=== PATIENT | female | born 1955 | race Two or more races ===

== ENCOUNTER 2016-07-10 19:33 | Inpatient (IN) | payer MEDICAID ==
--- NOTE | 2016-07-10 19:56 | EDPHY ---
H & P Time Seen by Provider: 07/10/16 19:51 HPI/ROS: Chief complaint. Cough, back ache, shortness of breath HPI. 61-year-old female presents with shortness of breath, cough productive green sputum and fever. She has had the symptoms for about 1 week. She is on chronic home O2 and several months ago she went from her usual 3 L to 5 L per minute by nasal cannula. She has back pain and rib pain especially with coughing. Exertional shortness of breath. Her blood sugar was elevated today. No unusual leg pain or swelling. No anterior chest discomfort. No abdominal pain ROS Constitutional. Subjective fever Eyes. no problems with vision ENT. no sore throat, no nasal drainage Cardiovascular. no chest pain Respiratory. Shortness of breath and cough Abdominal. no abdominal pain, no nausea/vomiting, no diarrhea . no problems urinating MS. Back pain with coughing Skin. no rash Lymph. no swollen glands Neuro. no headache, no dizziness, no difficulty walking or with speech Past Medical/Surgical History: Past medical history is significant for chronic fatigue, arthritis, TB as a child, diabetes, hypertension, COPD, sleep apnea, appendectomy, kidney stones, gallstones, chronic home O2 at 3 liters/minute Social History: Single, nonsmoker, no alcohol Smoking Status: Never smoked Physical Exam: General Appearance: Alert well-developed female moderate distress vital signs are stable Eyes: Pupils equal and round no pallor or injection. ENT, Mouth: Mucous membranes are moist. Respiratory: There are no retractions, lungs are clear to auscultation. No audible rales, rhonchi Cardiovascular: Regular rate and rhythm. Gastrointestinal: Abdomen is soft and nontender, no masses, bowel sounds normal. Neurological: Awake and alert, sensory and motor exams grossly normal. Skin: Warm and dry, no rashes. Musculoskeletal: Neck is supple nontender. Extremities symmetrical, full range of motion. Psychiatric: Patient is oriented X 3, there is no agitation. Constitutional: Initial Vital Signs Temperature (C) 36.9 C 07/10/16 19:35 Heart Rate 77 07/10/16 19:35 Respiratory Rate 18 07/10/16 19:35 Blood Pressure 168/69 H 07/10/16 19:35 O2 Sat (%) 98 07/10/16 19:35 O2 Delivery Mode Nasal Cannula O2 (L/minute) 5 Allergies/Adverse Reactions: No Known Allergies Allergy (Verified 07/10/16 19:42) Home Medications: Medication Instructions Recorded Hydrochlorothiazide [HCTZ (*)] 25 mg PO DAILY 08/09/13 Montelukast Sodium [Singulair 10 10 mg PO DAILY 08/09/13 mg (*)] Sertraline HCl [Zoloft 100mg (*)] 200 mg PO DAILY 08/09/13 Fluticasone/Salmeter 250/50Mcg 1 puffs IH BID 03/31/15 [Advair 250/50 (*)] Aspirin [Aspirin 81mg (*)] 81 mg PO DAILY 08/22/15 Lisinopril [Zestril 20 mg (*)] 20 mg PO DAILY 08/22/15 Albuterol [Proventil Inhaler HFA 2 puffs IH Q4HRS PRN #1 mdi 01/20/16 (*)] Cholecalciferol Vit D3 [Vitamin D3 1,000 units PO DAILY 01/25/16 (*)] Linagliptin [Tradjenta] 5 mg PO DAILY 01/25/16 Zolpidem Tartrate [Ambien 5MG (*)] 5 mg PO HS PRN 01/25/16 Acetaminophen [Tylenol 325mg (*)] 650 mg PO Q4HRS PRN #0 tab 01/27/16 Atenolol [Tenormin 25 mg (*)] 25 mg PO DAILY #30 tab 01/27/16 Pantoprazole Sodium [Protonix 40mg 40 mg PO DAILY #30 tab 01/27/16 (*)] guaiFENesin [Mucinex 600 MG (*)] 1,200 mg PO BID #0 tab.er 01/27/16 predniSONE 20 mg PO DAILY #6 tablet 01/27/16 Insulin Aspart [novoLOG] unit SC AC 07/10/16 Insulin Detemir [Levemir] 100 unit SQ 07/10/16 Medical Decision Making - Diagnostics EKG Interpretation: EKG INTERPRETED BY ME SHOWS NORMAL SINUS RHYTHM WITH NORMAL INTERVAL AND AXIS. QRS IS NORMAL NO SIGNIFICANT ST ELEVATION OR DEPRESSION. NO ARRHYTHMIA. THE RATE IS 66 Imaging Results: Chest x-ray reviewed by me and discussed with Dr. Menchaca shows a left lingular pneumonia Procedures: IV normal saline, DuoNeb updraft Lactate and blood cultures IV Rocephin following blood cultures ED Course/Re-evaluation: Re-evaluation 920 p.m. patient and I discussed imaging lab results including pneumonia and elevated blood sugar. We discussed treatment plan and recommendation for admission. Patient expresses understanding and agreement I consulted and discussed case with hospitalist, who agrees to the admission Differential Diagnosis: I considered COPD exacerbation, pneumonia, congestive heart failure, acute coronary syndrome - Data Points Laboratory Results: Laboratory Results 07/10/16 20:14 07/10/16 20:14 07/10/16 07/10/16 07/10/16 20:14 20:14 20:14 WBC RBC Hgb Hct MCV MCH MCHC RDW Plt Count MPV Neut % (Auto) Lymph % (Auto) [place] % (Auto) Eos % (Auto) Baso % (Auto) Nucleat RBC Rel Count Absolute Neuts (auto) Absolute Lymphs (auto) Absolute Monos (auto) Absolute Eos (auto) Absolute Basos (auto) Absolute Nucleated RBC Immature Gran % Immature Gran # PT Pending INR Pending APTT Pending D-Dimer Pending VBG Lactic Acid 1.6 mmol/L mmol/L (0.7-2.1) Sodium 137 mEq/L mEq/L (134-144) Potassium 4.0 mEq/L mEq/L (3.5-5.2) Chloride 95 mEq/L L mEq/L (97-110) Carbon Dioxide 30 mEq/l mEq/l (22-31) Anion Gap 12 mEq/L mEq/L (8-16) BUN 12 mg/dL mg/dL (7-23) Creatinine 0.6 mg/dL mg/dL (0.6-1.0) Estimated GFR > 60 Glucose 438 mg/dL H mg/dL (70-100) Calcium 8.4 mg/dL L mg/dL (8.5-10.4) Total Bilirubin 0.7 mg/dL mg/dL (0.1-1.4) Troponin I < 0.012 ng/mL ng/mL (0-0.034) NT-Pro-B Natriuret Pep 206 pg/mL H pg/mL (0-125) 07/10/16 20:14 WBC 7.35 10^3/uL 10^3/uL (3.80-9.50) RBC 4.62 10^6/uL 10^6/uL (4.18-5.33) Hgb 13.5 g/dL g/dL (12.6-16.3) Hct 41.6 % % (38.0-47.0) MCV 90.0 fL fL (81.5-99.8) MCH 29.2 pg pg (27.9-34.1) MCHC 32.5 g/dL g/dL (32.4-36.7) RDW 12.6 % % (11.5-15.2) Plt Count 200 10^3/uL 10^3/uL (150-400) MPV 10.1 fL fL (8.7-11.7) Neut % (Auto) 65.9 % % (39.3-74.2) Lymph % (Auto) 25.9 % % (15.0-45.0) [place] % (Auto) 7.3 % % (4.5-13.0) Eos % (Auto) 0.0 % L % (0.6-7.6) Baso % (Auto) 0.4 % % (0.3-1.7) Nucleat RBC Rel Count 0.0 % % (0.0-0.2) Absolute Neuts (auto) 4.84 10^3/uL 10^3/uL (1.70-6.50) Absolute Lymphs (auto) 1.90 10^3/uL 10^3/uL (1.00-3.00) Absolute Monos (auto) 0.54 10^3/uL 10^3/uL (0.30-0.80) Absolute Eos (auto) 0.00 10^3/uL L 10^3/uL (0.03-0.40) Absolute Basos (auto) 0.03 10^3/uL 10^3/uL (0.02-0.10) Absolute Nucleated RBC 0.00 10^3/uL 10^3/uL (0-0.01) Immature Gran % 0.5 % % (0.0-1.1) Immature Gran # 0.04 10^3/uL 10^3/uL (0.00-0.10) PT INR APTT D-Dimer VBG Lactic Acid Sodium Potassium Chloride Carbon Dioxide Anion Gap BUN Creatinine Estimated GFR Glucose Calcium Total Bilirubin Troponin I NT-Pro-B Natriuret Pep Medications Given: Discontinued Medications Albuterol/Ipratropium (Duoneb) 3 ml IH EDNOW ONE Stop: 07/10/16 20:22 Last Admin: 07/10/16 21:09 Dose: 3 ml Departure - Departure Disposition: [facility] Inpatient Acute Clinical Impression: Pneumonia Qualifiers: Pneumonia type: due to unspecified organism Laterality: left Lung location: lower lobe of lung Qualified Code(s): J18.1 - Lobar pneumonia, unspecified organism Condition: Fair Referrals: Tawanna Sullivan MD [Primary Care Provider] - As per Instructions
[2016-07-10] MEDS ORDERED: IPRATROPIUM/ALBUTEROL 3 ML DEYVIAL IH ONE (20:21)
--- NOTE | 2016-07-10 20:32 | CPEKG ---
Heart Rate: 66 RR Interval: 909 P-R Interval: 140 QRSD Interval: 92 QT Interval: 416 QTC Interval: 436 P [place]: 66 QRS [place]: 61 T Wave [place]: 42 EKG Severity - NORMAL ECG - EKG Impression: SINUS RHYTHM Electronically Signed By: Kvng Mar 10-Jul-2016 21:27:33
[2016-07-10 20:36] LABS: % IMMATURE GRANULYOCYTES 0.5 % (0.0-1.1); ABSOLUTE IMMATURE GRANULOCYTES 0.04 10^3/uL (0.00-0.10); ADD DIFF? NO; ADD MORPH? NO; ADD SCAN? NO; ATYPICAL LYMPHOCYTE FLAG 10 (0-99); FRAGMENT RBC FLAG 0 (0-99); HEMATOCRIT 41.6 % (38.0-47.0); HEMOGLOBIN 13.5 g/dL (12.6-16.3); LEFT SHIFT FLG 10 (0-99); LIPEMIA HEMOLYSIS FLAG 80 (0-99); MEAN CELL HEMOGLOBIN 29.2 pg (27.9-34.1); MEAN CELL HEMOGLOBIN CONCENTR. 32.5 g/dL (32.4-36.7); MEAN PLATELET VOLUME 10.1 fL (8.7-11.7); PLATELET CLUMPS FLAG 0 (0-99); PLATELET COUNT 200 10^3/uL (150-400); RED BLOOD CELL COUNT 4.62 10^6/uL (4.18-5.33); RED CELL DISTRIBUTION WIDTH 12.6 % (11.5-15.2)
[2016-07-10 20:53] LABS: ANION GAP 12 mEq/L (8-16); CALCIUM 8.4 mg/dL (8.5-10.4); CARBON DIOXIDE 30 mEq/l (22-31); CHLORIDE 95 mEq/L (97-110); CREATININE 0.6 mg/dL (0.6-1.0); GLOMERULAR FILTRATION RATE > 60; GLUCOSE 438 mg/dL (70-100); SODIUM 137 mEq/L (134-144)
[2016-07-10 21:05] LABS: TROPONIN I < 0.012 ng/mL (0-0.034)
[2016-07-10 21:14] LABS: BILIRUBIN,TOTAL 0.7 mg/dL (0.1-1.4)
[2016-07-10 21:24] LABS: INR 1.11 (0.83-1.16); PROTIME(PATIENT) 14.2 SEC (12.0-15.0)
[2016-07-10 21:25] LABS: APTT 26.6 SEC (23.0-38.0)
[2016-07-10] MEDS ORDERED: ZOLPIDEM TARTRATE 5 MG TAB PO PRN (22:30)
[2016-07-10] MEDS ORDERED: guaiFENesin 600 MG TAB.ER PO PRN (22:30)
[2016-07-10] MEDS ORDERED: ALBUTEROL 60 PUFFS/8 GM MDI IH PRN (22:30)
[2016-07-10] MEDS ORDERED: ONDANSETRON 4 MG/2 ML VIAL IVP PRN (22:34)
[2016-07-10] MEDS ORDERED: D50W 25 GM/50 ML SYR IVP PRN (22:35)
[2016-07-10] MEDS ORDERED: hydrALAZINE 20 MG/ML VIAL IVP PRN (22:36)
--- NOTE | 2016-07-10 23:29 | GHP ---
[f rep st] HISTORY AND PHYSICAL DATE OF ADMISSION: 07/10/2016 CHIEF COMPLAINT: Shortness of breath and cough. HISTORY: The patient is a 61-year-old female who presents with shortness of breath. She has a new productive green sputum with fever for the last week. She wears home O2 chronically at 3 L, and she has turned it up to 5 L. She has back and rib pain, worse with inspiration and cough. Her fevers are worse at night, although I could not get a definite history of night sweats. PAST MEDICAL HISTORY: 1. COPD on 3 L baseline. 2. Diabetes type 2. 3. Hypertension. 4. Pulmonary fibrosis. 5. Obstructive sleep apnea, on CPAP. 6. History of tuberculosis at age 12 in [place], she describes being on treatment for 2 years. 7. Morbid obesity. PAST SURGICAL HISTORY: Appendectomy, partial nephrectomy. MEDICATIONS: Please see computer record for full detailed list. ALLERGIES: No known drug allergies. SOCIAL HISTORY: No smoking. No alcohol. She lives with her . She is on Social Security. REVIEW OF SYSTEMS: Complete review of systems obtained. Review of systems negative regarding const itutional, HEENT, GI, pulmonary, cardiovascular, , hematology, skin, musculoskeletal, endocrine an d psych except for positives and negatives as in HPI. FAMILY HISTORY: Mother had uterine cancer. PHYSICAL EXAMINATION: GENERAL: Well-developed, nourished female, in no acute distress. VITAL SIGN S: Temperature is 36.9, pulse of 70, blood pressure 169/100, saturating 100% on 5 L. EYES: Normal conjunctivae. Pupils round, equally react to light. ENT: Normal ears, nose. Hearing intact. No rmal lips and teeth. Oropharynx moist. NECK: Trachea midline. No thyromegaly. CHEST: Normal re spiratory effort. LUNGS: Clear to auscultation bilaterally. Very rare mild wheeze. CARDIOVASCULA R: Regular rhythm. No murmur. No lower extremity edema. ABDOMEN: Soft, nontender. No hepatospl enomegaly. SKIN: Warm, dry, intact without rash. MUSCULOSKELETAL: No cyanosis or clubbing. Stre ngth 5/5 upper and lower extremities. NEUROLOGIC: Cranial nerves intact. Normal sensation to ligh t touch. PSYCH: Alert and oriented x3. Normal mood and affect. Normal judgment and insight. Nor mal memory. LABORATORY DATA: White count 7.35, hematocrit 41.6, platelets 200. Sodium 137, potassium 4.0, chlo ride 95, bicarb 30, BUN 12, creatinine 0.6, glucose 438. BNP is 206. Troponins negative. Lactate is 1.6. D-dimer is negative. INR is 1.11. EKG viewed by me. My personal interpretation is normal sinus rhythm, no ST-T wave changes. Chest x-ray shows a new lingular pneumonia. On old chart review, she has had multiple CT scans of the chest here before, these have never had PE and they have always shown cavitary fibrosis consistent with old TB. This case was discussed with Dr. Mar, emergency room physician. He was treating her for communi ty-acquired pneumonia and gave her Rocephin. ASSESSMENT AND PLAN: 1. Pneumonia. This is likely a community-acquired pneumonia. However, I am concerned regarding he r history of tuberculosis as a child in [place]. There is the risk of latent tuberculosis with react ivation, as it is impossible to confirm whether or not her treatment in [place] was adequate. I will , therefore, isolate her and check AFB x3. Continue ceftriaxone and azithromycin for presumed commu nity-acquired pneumonia. 2. Gxtek-bj-wgwdmqn respiratory failure. Increase oxygen from 3-5 L. her chronic respiratory fail ure is likely due to her cavitary fibrosis seen on CT scans, consistent with previous tuberculosis i nfection. 3. Morbid obesity. BMI 48. Continue CPAP at night for obstructive sleep apnea. I am sure obesity hypoventilation is contributing to her respiratory issues. Her D-dimer is negative, and no further workup for pulmonary embolus is necessary. 4. Diabetes type 2. We will continue her usual insulin plus a sliding scale. CODE STATUS: Full. ADMISSION STATUS: 1. Will admit to inpatient as she is medically complex. Anticipate greater than 2 midnights. 2. Deep venous thrombosis prophylaxis: She is high risk. Will place her on subcu Lovenox. /[id number]/MODL
[2016-07-11] MEDS: ACETAMINOPHEN 325 MG TAB PO PRN ×2 (00:34→15:14)
[2016-07-11] MEDS: INSULIN REGULAR HUMAN 100 UNIT/ML SC SCH ×2 (00:34→10:39)
[2016-07-11] MEDS: AZITHROMYCIN IV 500 MG in D5W 250 ML IV SCH ×2 (00:44→08:36)
[2016-07-11 05:05] LABS: % IMMATURE GRANULYOCYTES 0.3 % (0.0-1.1); ABSOLUTE IMMATURE GRANULOCYTES 0.02 10^3/uL (0.00-0.10); ADD DIFF? NO; ADD MORPH? NO; ADD SCAN? NO; ATYPICAL LYMPHOCYTE FLAG 0 (0-99); FRAGMENT RBC FLAG 0 (0-99); HEMATOCRIT 41.1 % (38.0-47.0); HEMOGLOBIN 12.8 g/dL (12.6-16.3); LEFT SHIFT FLG 10 (0-99); LIPEMIA HEMOLYSIS FLAG 80 (0-99); MEAN CELL HEMOGLOBIN 28.2 pg (27.9-34.1); MEAN CELL HEMOGLOBIN CONCENTR. 31.1 g/dL (32.4-36.7); MEAN CELL VOLUME 90.5 fL (81.5-99.8); MEAN PLATELET VOLUME 10.2 fL (8.7-11.7); PLATELET CLUMPS FLAG 0 (0-99); PLATELET COUNT 193 10^3/uL (150-400); RED BLOOD CELL COUNT 4.54 10^6/uL (4.18-5.33); RED CELL DISTRIBUTION WIDTH 12.6 % (11.5-15.2)
[2016-07-11] MEDS: IPRATROPIUM/ALBUTEROL 3 ML DEYVIAL IH SCH ×5 (05:12→20:42)
[2016-07-11 05:27] LABS: ANION GAP 8 mEq/L (8-16); CALCIUM 8.5 mg/dL (8.5-10.4); CARBON DIOXIDE 34 mEq/l (22-31); CHLORIDE 100 mEq/L (97-110); CREATININE 0.5 mg/dL (0.6-1.0); GLOMERULAR FILTRATION RATE > 60; GLUCOSE 346 mg/dL (70-100); SODIUM 142 mEq/L (134-144)
[2016-07-11] MEDS: ATENOLOL 25 MG TAB PO SCH (08:36)
[2016-07-11] MEDS: SERTRALINE HCL 100 MG TAB PO SCH (08:37)
[2016-07-11] MEDS: MONTELUKAST SODIUM 10 MG TAB PO SCH (08:37)
[2016-07-11] MEDS: HYDROCHLOROTHIAZIDE 25 MG TAB PO SCH (08:37)
[2016-07-11] MEDS: LISINOPRIL 20 MG TAB PO SCH (08:37)
[2016-07-11] MEDS: PANTOPRAZOLE SODIUM 40 MG TAB PO SCH (08:37)
[2016-07-11] MEDS: ENOXAPARIN 40 MG/0.4 ML SYR SC SCH (08:37)
[2016-07-11] MEDS: ASPIRIN 81 MG CHEWABLE TAB PO SCH (08:37)
[2016-07-11] MEDS ORDERED: NON-FORMULARY NEW DRUG (Insulin Detemir [Levemir Flextouch] 20 UNIT) SQ SCH (09:00)
[2016-07-11] MEDS ORDERED: INSULIN GLARGINE 100 UNITS/ML SYRINGE SC SCH (09:00)
[2016-07-11] MEDS ORDERED: FLUTICASONE/SALMETER 250/50MCG DISKUS IH SCH ×2 (09:00→21:00)
[2016-07-11] MEDS: INSULIN LISPRO 100 UNIT/ML SC SCH ×6 (09:53→18:00)
--- NOTE | 2016-07-11 10:37 | HOSPPROG ---
Hospitalist Progress Note Assessment/Plan: Acute on chronic hypoxemic respiratory failure secondary to PNA in 61 yo female with h/o COPD and cavitary fibrosis due to old TB infection. She also has GIAN and obesity contributing to her hypoxemia. Uses 3 LPM O2 at home, currently on baseline O2 requirement. -Cont Ceftriaxone/Azithro for CAP -BCx's pending, add sputum Cx -AFB x3 to r/o reactivation of TB -airborne precautions DM - BG's in 300's. Increase basal and bolus insulin, cont to uptitrate as needed Hypertension - adequate control, cont current regimen Full code DVT PPLX - Lovenox Dispo - cont inpt Subjective: Pt feels a little better today, decreased cough, still some sputum production. No fevers/chills. No CP. Objective: Vital Signs Temp Pulse Resp BP Pulse Ox 36.7 C 64 24 H 124/78 H 99 07/11/16 07:09 07/11/16 07:09 07/11/16 07:09 07/11/16 07:09 07/11/16 07:09 Laboratory Results 07/11/16 03:38 07/11/16 03:38 07/10/16 07/11/16 07/12/16 05:59 05:59 05:59 Intake Total 525 Balance 525 PT 14.2 SEC (12.0-15.0) 07/10/16 20:14 INR 1.11 (0.83-1.16) 07/10/16 20:14 - Physical Exam Constitutional: no apparent distress Eyes: PERRL Ears, Nose, Mouth, Throat: moist mucous membranes Cardiovascular: regular rate and rhythym Respiratory: no respiratory distress, inspiratory crackles Gastrointestinal: normoactive bowel sounds, soft, non-tender abdomen Skin: warm Musculoskeletal: full muscle strength Neurologic: AAOx3 Psychiatric: interacting appropriately ICD10 Worksheet Patient Problems: Problems Problem Status Onset Pneumonia Acute Appendicitis, acute Acute COPD exacerbation Acute Chronic obstructive pulmonary disease with acute exacerbation Acute Hyperglycemia due to type 2 diabetes mellitus Acute Pulmonary hypertension Acute
[2016-07-11] MEDS ORDERED: INSULIN ASPART 10 UNIT SC SCH (11:30)
[2016-07-11 11:55] LABS: SEDIMENTATION RATE 39 MM/HR (0-30)
[2016-07-11] MEDS ORDERED: Insulin Aspart [Novolog] SC SCH (12:00)
[2016-07-12 04:20] LABS: ANION GAP 9 mEq/L (8-16); CALCIUM 9.2 mg/dL (8.5-10.4); CARBON DIOXIDE 32 mEq/l (22-31); CHLORIDE 94 mEq/L (97-110); CREATININE 0.5 mg/dL (0.6-1.0); GLOMERULAR FILTRATION RATE > 60; GLUCOSE 463 mg/dL (70-100); POTASSIUM 4.3 mEq/L (3.5-5.2); SODIUM 135 mEq/L (134-144)
[2016-07-12 04:57] LABS: HEMOGLOBIN A1C 13.2 % (4.0-6.0)
[2016-07-12] MEDS: IPRATROPIUM/ALBUTEROL 3 ML DEYVIAL IH SCH ×3 (05:26→20:50)
[2016-07-12] MEDS: AZITHROMYCIN IV 500 MG in D5W 250 ML IV SCH (08:23)
[2016-07-12] MEDS: INSULIN LISPRO 100 UNIT/ML SC SCH ×6 (08:25→21:26)
[2016-07-12] MEDS: ASPIRIN 81 MG CHEWABLE TAB PO SCH (08:27)
[2016-07-12] MEDS: PANTOPRAZOLE SODIUM 40 MG TAB PO SCH (08:29)
[2016-07-12] MEDS: ATENOLOL 25 MG TAB PO SCH (08:29)
[2016-07-12] MEDS: MONTELUKAST SODIUM 10 MG TAB PO SCH (08:29)
[2016-07-12] MEDS: HYDROCHLOROTHIAZIDE 25 MG TAB PO SCH (08:30)
[2016-07-12] MEDS: LISINOPRIL 20 MG TAB PO SCH (08:30)
[2016-07-12] MEDS: SERTRALINE HCL 100 MG TAB PO SCH (08:30)
[2016-07-12] MEDS: ENOXAPARIN 40 MG/0.4 ML SYR SC SCH (08:30)
[2016-07-12] MEDS ORDERED: INSULIN LISPRO 100 UNIT/ML SC SCH (08:39)
--- NOTE | 2016-07-12 10:10 | HOSPPROG ---
Hospitalist Progress Note Assessment/Plan: Acute on chronic hypoxemic respiratory failure secondary to PNA in 61 yo female with h/o COPD and cavitary fibrosis due to old TB infection. She also has GIAN and obesity contributing to her hypoxemia. Uses 3 LPM O2 at home, currently on baseline O2 requirement. -Cont Ceftriaxone/Azithro for CAP -BCx's and sputum Cx pending -AFB x3 to r/o reactivation of TB, first is neg -airborne precautions -repeat CXR today due to acute SOB -increase nebs to q4h while awake -prn roxanol for air hunger -no significant wheezing, defer steroids for now as these will worsen hyperglycemia, but will consider adding if necessary DM - BG's in 300's. Increased basal and bolus insulin on admission, cont to uptitrate as needed. -increase lispro Hypertension - adequate control, cont current regimen Full code DVT PPLX - Lovenox Dispo - cont inpt Subjective: Pt feels quite tired and SOB, feels like she can't get air. No CP. Still having fair amt of mucus production. No fevers. Objective: Vital Signs Temp Pulse Resp BP Pulse Ox 36.2 C 86 13 155/84 H 94 07/12/16 07:51 07/12/16 08:29 07/12/16 07:51 07/12/16 08:30 07/12/16 07:51 Microbiology 07/11/16 13:57 Mycobacterial Smear (MYRNA) - Final Sputum, Expectorated Laboratory Results 07/11/16 03:38 07/12/16 03:30 07/11/16 07/12/16 07/13/16 05:59 05:59 05:59 Intake Total 525 400 Output Total 1200 Balance 525 -800 PT 14.2 SEC (12.0-15.0) 07/10/16 20:14 INR 1.11 (0.83-1.16) 07/10/16 20:14 - Physical Exam Constitutional: no apparent distress Eyes: PERRL Ears, Nose, Mouth, Throat: moist mucous membranes Cardiovascular: regular rate and rhythym Respiratory: reduced air movement, inspiratory crackles Gastrointestinal: normoactive bowel sounds, soft, non-tender abdomen Skin: warm Musculoskeletal: full muscle strength Neurologic: AAOx3 Psychiatric: interacting appropriately ICD10 Worksheet Patient Problems: Problems Problem Status Onset Pneumonia Acute Appendicitis, acute Acute COPD exacerbation Acute Chronic obstructive pulmonary disease with acute exacerbation Acute Hyperglycemia due to type 2 diabetes mellitus Acute Pulmonary hypertension Acute
[2016-07-12] MEDS ORDERED: morphINE 10 MG/0.5 ML UDSYR PO PRN (10:21)
[2016-07-12] MEDS ORDERED: IPRATROPIUM/ALBUTEROL 3 ML DEYVIAL IH SCH (10:30)
[2016-07-12] MEDS: INSULIN GLARGINE 100 UNITS/ML SYRINGE SC SCH (20:11)
[2016-07-13] MEDS: IPRATROPIUM/ALBUTEROL 3 ML DEYVIAL IH SCH ×6 (00:12→20:11)
[2016-07-13 05:12] LABS: ANION GAP 9 mEq/L (8-16); CALCIUM 8.9 mg/dL (8.5-10.4); CARBON DIOXIDE 31 mEq/l (22-31); CHLORIDE 94 mEq/L (97-110); CREATININE 0.6 mg/dL (0.6-1.0); GLOMERULAR FILTRATION RATE > 60; GLUCOSE 365 mg/dL (70-100); POTASSIUM 4.1 mEq/L (3.5-5.2); SODIUM 134 mEq/L (134-144)
[2016-07-13] MEDS: HYDROCHLOROTHIAZIDE 25 MG TAB PO SCH (08:16)
[2016-07-13] MEDS: ATENOLOL 25 MG TAB PO SCH (08:16)
[2016-07-13] MEDS: ASPIRIN 81 MG CHEWABLE TAB PO SCH (08:16)
[2016-07-13] MEDS: SERTRALINE HCL 100 MG TAB PO SCH (08:16)
[2016-07-13] MEDS: MONTELUKAST SODIUM 10 MG TAB PO SCH (08:16)
[2016-07-13] MEDS: LISINOPRIL 20 MG TAB PO SCH (08:17)
[2016-07-13] MEDS: PANTOPRAZOLE SODIUM 40 MG TAB PO SCH (08:17)
[2016-07-13] MEDS: INSULIN LISPRO 100 UNIT/ML SC SCH ×6 (08:18→21:22)
[2016-07-13] MEDS: ENOXAPARIN 40 MG/0.4 ML SYR SC SCH (08:18)
[2016-07-13] MEDS ORDERED: INSULIN LISPRO 100 UNIT/ML SC SCH ×2 (08:22→08:23)
[2016-07-13] MEDS: AZITHROMYCIN IV 500 MG in D5W 250 ML IV SCH (08:28)
[2016-07-13] MEDS ORDERED: INSULIN GLARGINE 100 UNITS/ML SYRINGE SC SCH ×2 (09:00→12:06)
--- NOTE | 2016-07-13 10:04 | HOSPPROG ---
Hospitalist Progress Note Assessment/Plan: Acute on chronic hypoxemic respiratory failure secondary to PNA in 61 yo female with h/o COPD and cavitary fibrosis due to old TB infection. She also has GIAN and obesity contributing to her hypoxemia. Uses 3 LPM O2 at home, currently on baseline O2 requirement. -Cont Ceftriaxone/Azithro today, change to oral Cefdinir tomorrow -BCx's ngtd -AFB neg x2 -airborne precautions until 3 neg AFB's -cont nebs -prn roxanol for air hunger -no significant wheezing, defer steroids for now as these will worsen hyperglycemia, but will consider adding if necessary DM - BG's remain elevated. A1c >13. Aggressively up-titrating insulin, bg's in 200's-300's still -increase lispro and lantus again Hypertension - adequate control, cont current regimen Left arm pain - given that she is diabetic, check ekg and trop. Xray per pt request could evaluate for arthritis or a chronic tendonitis. May need cervical imaging as outpatient. Full code DVT PPLX - Lovenox Dispo - cont inpt, possible d/c in am Subjective: Pt feels better from a respiratory standpoint. Denies SOB today. No fevers. Complains of left shoulder pain, worse with movement / abduction. Pain is sharp. No CP, nausea or diaphoresis. Objective: Vital Signs Temp Pulse Resp BP Pulse Ox 36.7 C 66 18 119/72 94 07/13/16 08:00 07/13/16 09:34 07/13/16 09:34 07/13/16 08:17 07/13/16 09:34 Microbiology 07/12/16 12:45 Mycobacterial Smear (MYRNA) - Final Sputum, Expectorated Laboratory Results 07/11/16 03:38 07/13/16 03:06 07/12/16 07/13/16 07/14/16 05:59 05:59 05:59 Intake Total 400 1540 Output Total 1200 Balance -800 1540 PT 14.2 SEC (12.0-15.0) 07/10/16 20:14 INR 1.11 (0.83-1.16) 07/10/16 20:14 - Physical Exam Constitutional: no apparent distress Eyes: PERRL Ears, Nose, Mouth, Throat: moist mucous membranes Cardiovascular: regular rate and rhythym Respiratory: no respiratory distress, reduced air movement Gastrointestinal: normoactive bowel sounds, soft, non-tender abdomen Skin: warm Musculoskeletal: other (left shoulder pain with abduction, +tenderness over biceps tendon) Neurologic: AAOx3 Psychiatric: interacting appropriately ICD10 Worksheet Patient Problems: Problems Problem Status Onset Pneumonia Acute Appendicitis, acute Acute COPD exacerbation Acute Chronic obstructive pulmonary disease with acute exacerbation Acute Hyperglycemia due to type 2 diabetes mellitus Acute Pulmonary hypertension Acute
--- NOTE | 2016-07-13 12:41 | CPEKG ---
Heart Rate: 66 RR Interval: 909 P-R Interval: 160 QRSD Interval: 92 QT Interval: 432 QTC Interval: 453 P [place]: 52 QRS [place]: 62 T Wave [place]: 63 EKG Severity - NORMAL ECG - EKG Impression: SINUS RHYTHM Electronically Signed By: Lv Nava 13-Jul-2016 14:29:44
[2016-07-13] MEDS: INSULIN GLARGINE 100 UNITS/ML SYRINGE SC SCH (20:22)
[2016-07-14] MEDS: IPRATROPIUM/ALBUTEROL 3 ML DEYVIAL IH SCH ×4 (01:38→14:23)
[2016-07-14] MEDS: INSULIN LISPRO 100 UNIT/ML SC SCH ×6 (08:12→16:17)
[2016-07-14] MEDS: ENOXAPARIN 40 MG/0.4 ML SYR SC SCH (08:12)
[2016-07-14] MEDS: PANTOPRAZOLE SODIUM 40 MG TAB PO SCH (08:13)
[2016-07-14] MEDS: HYDROCHLOROTHIAZIDE 25 MG TAB PO SCH (08:13)
[2016-07-14] MEDS: ASPIRIN 81 MG CHEWABLE TAB PO SCH (08:13)
[2016-07-14] MEDS: ATENOLOL 25 MG TAB PO SCH (08:13)
[2016-07-14 08:14] VITALS: BP 132/71; TEMP 98.2
[2016-07-14] MEDS: LISINOPRIL 20 MG TAB PO SCH (08:14)
[2016-07-14] MEDS: SERTRALINE HCL 100 MG TAB PO SCH (08:14)
[2016-07-14] MEDS: MONTELUKAST SODIUM 10 MG TAB PO SCH (08:14)
[2016-07-14] MEDS ORDERED: CEFDINIR 300 MG CAP PO SCH (09:00)
[2016-07-14 10:23] VITALS: PULSE 74; RESP 17; O2SAT 95
--- NOTE | 2016-07-14 19:44 | GDS ---
[f rep st] DISCHARGE SUMMARY DISCHARGE DIAGNOSES: 1. Aqkwg-jt-stenpnv hypoxemic respiratory failure, secondary to pneumonia. 2. Community-acquired pneumonia. 3. Chronic obstructive pulmonary disease, on chronic oxygen at 3 L/minute. 4. History of tuberculosis, with chronic cavitary fibrosis on imaging. 5. Obstructive sleep apnea. 6. Diabetes mellitus. Poorly controlled, with a hemoglobin A1c of 13.2. HISTORY: For details, please see dictated history and physical dated July 10. In brief, the patient is a 61-year-old female, with a history of diabetes and oxygen-dependent COPD, [facility], fever, and shortness of breath. She was admitted to the hospital fo r further management. HOSPITAL COURSE: The patient was admitted to the progressive care unit. Chest x-ray showed a lingu lar pneumonia. She was treated with ceftriaxone and azithromycin. Given her history of tuberculosi s as a child in [place], reactivation of tuberculosis was ruled out with 3 negative acid-fast bacilli sputum samples. She also had negative blood cultures. She initially required 5 L of oxygen per mi nute; though, returned to her baseline oxygen requirement of 3 L/minute at discharge. As her condit ion improved, she was transitioned to oral antibiotics. With respect to her diabetes, she unfortunately had very poor glycemic control on admission with a b lood sugar in the 300s. Her insulin doses were aggressively up titrated, and she is discharged home on significantly higher insulin regimen, with instructions to have close followup with her primary care for ongoing management. DISPOSITION: Patient is discharged home in stable condition. DISCHARGE MEDICATIONS: Please see navigaya for complete updated outpatient medication list. New medications on discharge include: Omnicef 300 mg p.o. b.i.d., #8, no refills, for a total of 1 week of therapy. Changed medications on discharge: She will continue her insulin Levemir 60 units subcutaneous h.s. Her morning Levemir dose is increased from 10 to 30 units daily. In addition, her insulin aspart N ovoLog dose is increased to 26 units q.a.c., based on her insulin needs during hospitalization. She is instructed to check her blood sugars before each meal and at bedtime. Keep a blood sugar log , and follow up with her primary care physician next week. FOLLOWUP: Dr. Tawanna Sullivan, primary care, in 3-5 days. /[id number]/MODL
== END 2016-07-14 16:43 | disposition home or self-care (01) | DRG 193 ==
LOC: F2W 23:57
PROVIDERS: ADMIT Internal Medicine; ATTEND Internal Medicine
DX: J18.9 Pneumonia, unspecified organism (principal); J96.01 Acute respiratory failure with hypoxia; J44.9 Chronic obstructive pulmonary disease, unspecified; Z99.81 Dependence on supplemental oxygen; E11.9 Type 2 diabetes mellitus without complications; Z79.4 Long term (current) use of insulin; I10 Essential (primary) hypertension; G47.33 Obstructive sleep apnea (adult) (pediatric); E66.01 Morbid (severe) obesity due to excess calories; Z68.42 Body mass index [BMI] 45.0-49.9, adult; Z86.11 Personal history of tuberculosis
CPT/HCPCS: 82947-QW; 96365; 97161-GP; 97165-GO; J0456; J0696; J1650; J1815

== ENCOUNTER 2016-12-02 17:35 | Observation (INO) | payer MEDICAID ==
[2016-12-02] MEDS ORDERED: ACETAMINOPHEN 325 MG TAB PO ONE (18:09)
[2016-12-02] MEDS ORDERED: IPRATROPIUM/ALBUTEROL 3 ML DEYVIAL IH ONE (19:08)
--- NOTE | 2016-12-02 19:25 | EDPHY ---
H & P Time Seen by Provider: 12/02/16 18:08 HPI/ROS: CHIEF COMPLAINT: Cough, fever HISTORY OF PRESENT ILLNESS: 61-year-old female with a history of diabetes and oxygen dependent COPD presents with cough and fever. Onset of myalgias and a dry cough 4 days ago, followed by fever and chills. Feels short of breath with exertion, despite her usual oxygen. Tolerating oral fluids well. Blood sugar has been running 180-200 today. Has not received a flu vaccination this year. REVIEW OF SYSTEMS: Eyes: No visual changes ENT: No sore throat Cardiac: No chest pain Gastrointestinal: No nausea, no vomiting, no abdominal pain Genitourinary: no dysuria Skin: No rash Neurological: No headache, no weakness Psychiatric: No depression Past Medical/Surgical History: Diabetes COPD, on home oxygen Tuberculosis as teenager Social History: Lives in own home with daughter and granddaughter Smoking Status: Never smoked Physical Exam: General Appearance: Alert, pleasant Eyes: Pupils equal and round, no conjunctival pallor or injection ENT, Mouth: Mucous membranes moist Neck: Normal inspection Respiratory: left-sided expiratory wheezing Cardiovascular: Regular rate and rhythm Gastrointestinal: Abdomen is soft and nontender Neurological: A&O, nonfocal, normal gait Skin: Warm and dry Extremities: Nontender, no pedal edema Psychiatric: Mood and affect normal Constitutional: Initial Vital Signs Temperature (C) 37.5 C 12/02/16 17:39 Heart Rate 90 12/02/16 17:39 Respiratory Rate 18 12/02/16 17:39 Blood Pressure 160/98 H 12/02/16 17:39 O2 Sat (%) 92 12/02/16 17:39 O2 Delivery Mode Nasal Cannula O2 (L/minute) 3 Allergies/Adverse Reactions: No Known Allergies Allergy (Verified 12/02/16 17:37) Home Medications: Medication Instructions Recorded Hydrochlorothiazide [HCTZ (*)] 25 mg PO DAILY 08/09/13 Montelukast Sodium [Singulair 10 10 mg PO DAILY 08/09/13 mg (*)] Sertraline HCl [Zoloft 100mg (*)] 100 mg PO DAILY 08/09/13 Fluticasone/Salmeter 250/50Mcg 1 puffs IH BID 03/31/15 [Advair 250/50 (*)] Aspirin [Aspirin 81mg (*)] 81 mg PO DAILY 08/22/15 Lisinopril [Zestril 20 mg (*)] 20 mg PO DAILY 08/22/15 Atenolol [Tenormin 25 mg (*)] 25 mg PO DAILY #30 tab 01/27/16 Insulin Detemir [Levemir Flextouch] 60 unit SQ HS 07/10/16 Insulin Detemir [Levemir Flextouch] 30 unit SQ DAILY #30 insuln.pen 07/14/16 Insulin Aspart [novoLOG] 28 unit SC AC 12/02/16 Rosuvastatin Calcium [Crestor 20mg 10 mg PO DAILY 12/02/16 (*)] Acetaminophen [Tylenol 325mg (*)] 650 mg PO Q4HRS PRN tab 12/03/16 Azithromycin [Zithromax] 250 mg PO DAILY #4 tab 12/03/16 levOFLOXACIN [levAQUIN (*)] 750 mg PO DAILY #5 tab 12/03/16 Medical Decision Making - Diagnostics Imaging Results: Chest x-ray independently reviewed by me reveals a possible retrocardiac infiltrate. ED Course/Re-evaluation: This patient presents with fever, hypoxia and cough, likely secondary to pneumonia and/or influenza. She does not meet SIRS criteria. SOB with slight exertion. A DuoNeb was given for bronchospasm. Chest x-ray reveals a possible retrocardiac infiltrate. However her chest x-ray is abnormal at baseline and a small infiltrate may be difficult to visualize. Influenza swab is negative. Toradol 15 mg IV given for myalgias. Blood cultures were drawn and Levaquin 750 mg IV given. The hospitalist service was consulted for admission because of hypoxia and pneumonia. Differential Diagnosis: Differential diagnosis includes pyelonephritis, cholecystitis, influenza, cellulitis, pneumonia, abscess, meningitis. - Data Points Laboratory Results: Laboratory Results 12/02/16 19:38 12/02/16 19:38 Medications Given: Discontinued Medications Acetaminophen (Tylenol) 650 mg PO EDNOW ONE Stop: 12/02/16 18:10 Last Admin: 12/02/16 18:15 Dose: 650 mg Acetaminophen (Tylenol) 650 mg PO Q4HRS PRN PRN Reason: Pain, Mild/Fever, Can Take PO Stop: 05/31/17 22:19 Last Admin: 12/03/16 07:28 Dose: 650 mg Albuterol (Proventil Neb) 3 ml IH Q2HRS PRN PRN Reason: Short of Breath/Dyspnea Stop: 05/31/17 22:19 Last Admin: 12/03/16 09:27 Dose: 3 ml Albuterol/Ipratropium (Duoneb) 3 ml IH EDNOW ONE Stop: 12/02/16 19:09 Last Admin: 12/02/16 20:13 Dose: 3 ml Aspirin (Aspirin) 81 mg PO DAILY YOAN Stop: 06/01/17 08:59 Last Admin: 12/03/16 10:22 Dose: 81 mg Atenolol (Tenormin) 25 mg PO DAILY YOAN Stop: 06/01/17 08:59 Last Admin: 12/03/16 10:11 Dose: 25 mg Azithromycin (Zithromax) 500 mg PO ONCE ONE PRN Reason: Protocol Stop: 12/02/16 22:27 Last Admin: 12/02/16 23:18 Dose: 500 mg Enoxaparin Sodium (Lovenox) 40 mg SC DAILY ON LICENSE OF [facility] Stop: 06/01/17 08:59 Last Admin: 12/03/16 10:15 Dose: 40 mg Hydrochlorothiazide (Hydrochlorothiazide) 25 mg PO DAILY ON LICENSE OF [facility] Stop: 06/01/17 08:59 Last Admin: 12/03/16 10:09 Dose: 25 mg Sodium Chloride (Ns) 1,000 mls @ 0 mls/hr IV EDNOW ONE; Wide Open PRN Reason: Protocol Stop: 12/02/16 20:06 Last Admin: 12/02/16 20:12 Dose: 1,000 mls Levofloxacin/Dextrose (Levaquin 750 Mg (Premix)) 150 mls @ 100 mls/hr IV EDNOW ONE PRN Reason: Protocol Stop: 12/02/16 21:43 Last Admin: 12/02/16 20:43 Dose: 150 mls Sodium Chloride (Ns) 1,000 mls @ 250 mls/hr IV ONCE ONE Stop: 12/03/16 02:19 Last Admin: 12/02/16 23:24 Dose: 1,000 mls Insulin Human Lispro (Humalog Lispro) 0 unit SC TIDMEAL YOAN PRN Reason: Protocol Stop: 06/01/17 07:59 Last Admin: 12/03/16 13:35 Dose: 16 units Ketorolac Tromethamine (Toradol) 15 mg IVP EDNOW ONE Stop: 12/02/16 20:06 Last Admin: 12/02/16 20:13 Dose: 15 mg Lisinopril (Zestril) 20 mg PO DAILY ON LICENSE OF [facility] Stop: 06/01/17 08:59 Last Admin: 12/03/16 10:12 Dose: 20 mg Miscellaneous Medication (Insulin Detemir [Levemir Flextouch]) 30 unit SQ DAILY ON LICENSE OF [facility] Stop: 06/01/17 08:59 Last Admin: 12/03/16 10:19 Dose: 30 units Montelukast Sodium (Singulair) 10 mg PO DAILY ON LICENSE OF [facility] Stop: 06/01/17 08:59 Last Admin: 12/03/16 10:09 Dose: 10 mg Rosuvastatin Calcium (Crestor) 10 mg PO DAILY ON LICENSE OF [facility] Stop: 06/01/17 08:59 Last Admin: 12/03/16 10:08 Dose: 10 mg Fluticasone/Salmeterol (Advair) 1 puffs IH BID ON LICENSE OF [facility] Stop: 06/01/17 08:59 Last Admin: 12/03/16 09:22 Dose: 1 puffs Sertraline HCl (Zoloft) 100 mg PO DAILY ON LICENSE OF [facility] Stop: 06/01/17 08:59 Last Admin: 12/03/16 10:12 Dose: 100 mg Trazodone HCl (Trazodone) 50 mg PO HS PRN PRN Reason: Sleep/Insomnia Stop: 06/01/17 02:09 Last Admin: 12/03/16 02:16 Dose: 50 mg Departure - Departure Disposition: [facility] Acute Clinical Impression: Pneumonia Qualifiers: Pneumonia type: due to unspecified organism Laterality: left Lung location: lower lobe of lung Qualified Code(s): J18.1 - Lobar pneumonia, unspecified organism Condition: Fair
[2016-12-02 19:45] LABS: % IMMATURE GRANULYOCYTES 0.7 % (0.0-1.1); ADD DIFF? NO; ADD MORPH? NO; ADD SCAN? NO; ATYPICAL LYMPHOCYTE FLAG 0 (0-99); FRAGMENT RBC FLAG 0 (0-99); HEMATOCRIT 44.7 % (38.0-47.0); HEMOGLOBIN 14.4 g/dL (12.6-16.3); LEFT SHIFT FLG 10 (0-99); LIPEMIA HEMOLYSIS FLAG 80 (0-99); MEAN CELL HEMOGLOBIN 29.3 pg (27.9-34.1); MEAN CELL HEMOGLOBIN CONCENTR. 32.2 g/dL (32.4-36.7); MEAN PLATELET VOLUME 9.7 fL (8.7-11.7); PLATELET CLUMPS FLAG 20 (0-99); PLATELET COUNT 225 10^3/uL (150-400); RED BLOOD CELL COUNT 4.91 10^6/uL (4.18-5.33); RED CELL DISTRIBUTION WIDTH 12.5 % (11.5-15.2)
[2016-12-02 19:56] LABS: ANION GAP 11 mEq/L (8-16); CARBON DIOXIDE 31 mEq/l (22-31); CHLORIDE 95 mEq/L (97-110); CREATININE 0.6 mg/dL (0.6-1.0); GLOMERULAR FILTRATION RATE > 60; GLUCOSE 477 mg/dL (70-100); POTASSIUM 4.1 mEq/L (3.5-5.2); SODIUM 137 mEq/L (134-144)
[2016-12-02] MEDS ORDERED: NS 1,000 ML IV ONE ×2 (20:05→22:20)
[2016-12-02] MEDS ORDERED: KETOROLAC 15 MG/1 ML SDV IVP ONE (20:05)
[2016-12-02] MEDS ORDERED: ONDANSETRON DISINTEGRATING 4 MG TAB PO PRN (22:20)
[2016-12-02] MEDS ORDERED: ALBUTEROL 3 ML DEYVIAL IH PRN (22:20)
[2016-12-02] MEDS ORDERED: ACETAMINOPHEN 325 MG TAB PO PRN (22:20)
[2016-12-02] MEDS ORDERED: ONDANSETRON 4 MG/2 ML VIAL IVP PRN (22:20)
[2016-12-02] MEDS ORDERED: AZITHROMYCIN 250 MG TAB PO ONE (22:26)
--- NOTE | 2016-12-02 23:33 | PDGENHP ---
History and Physical - Chief Complaint Fatigue - History of Present Illness 61 yo F w/ COPD, DM, HTN presents with fatigue x4 days. Patient reports 4 days of fever, fatigue, body aches, and cough productive of white sputum. She denies sick contacts. She uses 4 L/min O2 continuously due to distant hx of treated TB and dx of COPD, although she is a lifetime non-smoker. She is compliant with her home medications although she does note poorly controlled blood sugars at home lately. History Information - Allergies/Home Medication List Allergies/Adverse Reactions: No Known Allergies Allergy (Verified 12/02/16 17:37) Home Medications: Hydrochlorothiazide [HCTZ (*)] 25 mg PO DAILY 08/09/13 [Last Taken 12/02/16] Montelukast Sodium [Singulair 10 mg (*)] 10 mg PO DAILY 08/09/13 [Last Taken ] Sertraline HCl [Zoloft 100mg (*)] 100 mg PO DAILY 08/09/13 [Last Taken 12/02/16] Fluticasone/Salmeter 250/50Mcg [Advair 250/50 (*)] 1 puffs IH BID 03/31/15 [ Last Taken 12/02/16] Aspirin [Aspirin 81mg (*)] 81 mg PO DAILY 08/22/15 [Last Taken 12/02/16] Lisinopril [Zestril 20 mg (*)] 20 mg PO DAILY 08/22/15 [Last Taken 12/02/16] Insulin Detemir [Levemir Flextouch] 60 unit SQ HS 07/10/16 [Last Taken 07/10/16] Insulin Aspart [novoLOG] 28 unit SC AC 12/02/16 [Last Taken Unknown] Rosuvastatin Calcium [Crestor 20mg (*)] 10 mg PO DAILY 12/02/16 [Last Taken ] I have personally reviewed and updated: family history, medical history - Past Medical History COPD, diabetes type 2, hypertension - Family History Positive for: diabetes type II - Social History Smoking Status: Never smoked Review of Systems Review of Systems: ROS: 10pt was reviewed & negative except for what was stated in HPI & below Physical Exam Physical Exam: Temp Pulse Resp BP Pulse Ox 37.2 C 82 18 106/59 L 96 12/02/16 23:13 12/02/16 23:13 12/02/16 23:13 12/02/16 23:13 12/02/16 23:13 O2 (L/minute) 3 Constitutional: appears nourished, uncomfortable Eyes: PERRL, EOMI Ears, Nose, Mouth, Throat: moist mucous membranes, no oral mucosal ulcers Cardiovascular: regular rate and rhythym, no murmur, rub, or gallop Respiratory: no respiratory distress, reduced air movement Gastrointestinal: normoactive bowel sounds, soft, non-tender abdomen Skin: warm, normal color Musculoskeletal: full muscle strength, no muscle tenderness Neurologic: AAOx3, CN II-XII Intact Psychiatric: interacting appropriately, not anxious Lab Data & Imaging Review 12/02/16 19:38 12/02/16 19:38 WBC 13.90 10^3/uL (3.80-9.50) H 12/02/16 19:38 RBC 4.91 10^6/uL (4.18-5.33) 12/02/16 19:38 Hgb 14.4 g/dL (12.6-16.3) 12/02/16 19:38 Hct 44.7 % (38.0-47.0) 12/02/16 19:38 MCV 91.0 fL (81.5-99.8) 12/02/16 19:38 MCH 29.3 pg (27.9-34.1) 12/02/16 19:38 MCHC 32.2 g/dL (32.4-36.7) L 12/02/16 19:38 RDW 12.5 % (11.5-15.2) 12/02/16 19:38 Plt Count 225 10^3/uL (150-400) 12/02/16 19:38 MPV 9.7 fL (8.7-11.7) 12/02/16 19:38 Neut % (Auto) 81.8 % (39.3-74.2) H 12/02/16 19:38 Lymph % (Auto) 11.2 % (15.0-45.0) L 12/02/16 19:38 [place] % (Auto) 6.2 % (4.5-13.0) 12/02/16 19:38 Eos % (Auto) 0.0 % (0.6-7.6) L 12/02/16 19:38 Baso % (Auto) 0.1 % (0.3-1.7) L 12/02/16 19:38 Nucleat RBC Rel Count 0.0 % (0.0-0.2) 12/02/16 19:38 Absolute Neuts (auto) 11.36 10^3/uL (1.70-6.50) H 12/02/16 19:38 Absolute Lymphs (auto) 1.56 10^3/uL (1.00-3.00) 12/02/16 19:38 Absolute Monos (auto) 0.86 10^3/uL (0.30-0.80) H 12/02/16 19:38 Absolute Eos (auto) 0.00 10^3/uL (0.03-0.40) L 12/02/16 19:38 Absolute Basos (auto) 0.02 10^3/uL (0.02-0.10) 12/02/16 19:38 Absolute Nucleated RBC 0.00 10^3/uL (0-0.01) 12/02/16 19:38 Immature Gran % 0.7 % (0.0-1.1) 12/02/16 19:38 Immature Gran # 0.10 10^3/uL (0.00-0.10) 12/02/16 19:38 VBG Lactic Acid 1.5 mmol/L (0.7-2.1) 12/02/16 19:38 Sodium 137 mEq/L (134-144) 12/02/16 19:38 Potassium 4.1 mEq/L (3.5-5.2) 12/02/16 19:38 Chloride 95 mEq/L (97-110) L 12/02/16 19:38 Carbon Dioxide 31 mEq/l (22-31) 12/02/16 19:38 Anion Gap 11 mEq/L (8-16) 12/02/16 19:38 BUN 14 mg/dL (7-23) 12/02/16 19:38 Creatinine 0.6 mg/dL (0.6-1.0) 12/02/16 19:38 Estimated GFR > 60 12/02/16 19:38 Glucose 477 mg/dL (70-100) H 12/02/16 19:38 Calcium 9.0 mg/dL (8.5-10.4) 12/02/16 19:38 Influenza A & B (PCR) NEGATIVE FOR FLU (NEGATIVE) 12/02/16 17:45 Imaging Review: Possible, minimal retrocardiac infiltrate. Sequela of old granulomatous disease. Visualized and Interpreted Chest x-ray results: Yes Assessment & Plan Assessment: 61 yo F w/ COPD, HTN, DM presents with possible pneumonia. Plan: 1. Pneumonia - Constellation of symptoms consistent with viral etiology. However , noting small retrocardiac infiltrate and significant pre-existing pulmonary disease, reasonable to cover initially with antibiotics. At baseline O2 currently, afebrile, and only mild WBC elevation at 13.9. - S/p levofloxacin in ED, will continue CTX/Azithro for CAP coverage - Check procalcitonin - Blood cultures obtained - Albuterol PRN 2. CHRF - 2/2 old granulomatous disease and dx of COPD, although life-time non- smoker. Uses Advair as outpatient - Continue Advair, albuterol PRN 3. DM - Poorly controlled, BG>400 on admission with normal AG. Patient reports insulin detemir 30/60 units AM/PM and aspart 28 units qAC. - Continue home basal regimen + high SSI; titrate as necessary 4. HTN - Continue home meds Diet - Carb controlled Ppx - LMWH Code - Full Dispo - Admit to observation status
[2016-12-03] MEDS ORDERED: traZODone 50 MG TAB PO PRN (02:10)
[2016-12-03 05:24] LABS: % IMMATURE GRANULYOCYTES 0.5 % (0.0-1.1); ABSOLUTE IMMATURE GRANULOCYTES 0.05 10^3/uL (0.00-0.10); ADD DIFF? NO; ADD MORPH? NO; ADD SCAN? NO; ATYPICAL LYMPHOCYTE FLAG 0 (0-99); FRAGMENT RBC FLAG 0 (0-99); HEMATOCRIT 37.7 % (38.0-47.0); HEMOGLOBIN 12.2 g/dL (12.6-16.3); LEFT SHIFT FLG 10 (0-99); LIPEMIA HEMOLYSIS FLAG 80 (0-99); MEAN CELL HEMOGLOBIN 29.6 pg (27.9-34.1); MEAN CELL HEMOGLOBIN CONCENTR. 32.4 g/dL (32.4-36.7); MEAN CELL VOLUME 91.5 fL (81.5-99.8); MEAN PLATELET VOLUME 9.8 fL (8.7-11.7); PLATELET CLUMPS FLAG 10 (0-99); PLATELET COUNT 177 10^3/uL (150-400); RED BLOOD CELL COUNT 4.12 10^6/uL (4.18-5.33); RED CELL DISTRIBUTION WIDTH 12.5 % (11.5-15.2)
[2016-12-03 05:55] LABS: ANION GAP 9 mEq/L (8-16); CALCIUM 8.3 mg/dL (8.5-10.4); CARBON DIOXIDE 28 mEq/l (22-31); CHLORIDE 102 mEq/L (97-110); CREATININE 0.5 mg/dL (0.6-1.0); GLOMERULAR FILTRATION RATE > 60; GLUCOSE 311 mg/dL (70-100); POTASSIUM 4.1 mEq/L (3.5-5.2); SODIUM 139 mEq/L (134-144)
[2016-12-03 07:17] VITALS: TEMP 99.8; O2SAT 96
[2016-12-03] MEDS ORDERED: LISINOPRIL 20 MG TAB PO SCH (09:00)
[2016-12-03] MEDS ORDERED: INSULIN DETEMIR 30 UNIT SQ SCH (09:00)
[2016-12-03] MEDS ORDERED: ATENOLOL 25 MG TAB PO SCH (09:00)
[2016-12-03] MEDS ORDERED: ENOXAPARIN 40 MG/0.4 ML SYR SC SCH (09:00)
[2016-12-03] MEDS ORDERED: ROSUVASTATIN CALCIUM 10 MG TAB PO SCH (09:00)
[2016-12-03] MEDS ORDERED: FLUTICASONE/SALMETER 250/50MCG DISKUS IH SCH (09:00)
[2016-12-03] MEDS ORDERED: SERTRALINE HCL 100 MG TAB PO SCH (09:00)
[2016-12-03] MEDS ORDERED: MONTELUKAST SODIUM 10 MG TAB PO SCH (09:00)
[2016-12-03] MEDS ORDERED: ASPIRIN 81 MG CHEWABLE TAB PO SCH (09:00)
[2016-12-03] MEDS ORDERED: HYDROCHLOROTHIAZIDE 25 MG TAB PO SCH (09:00)
[2016-12-03] MEDS: INSULIN LISPRO 100 UNIT/ML SC SCH ×2 (10:13→13:35)
[2016-12-03 11:11] VITALS: BP 113/54; PULSE 84; RESP 16
--- NOTE | 2016-12-03 15:11 | GDS ---
[f rep st] DISCHARGE SUMMARY DISCHARGE DIAGNOSES: 1. Pneumonia. 2. Chronic hypoxemic respiratory failure. 3. Diabetes mellitus. 4. Hypertension. PHYSICAL EXAM: GENERAL: The patient is alert. VITAL SIGNS: Afebrile at 37.7, pulse is 84, respira tory rate 16, blood pressure is 113/54. She is saturating 96% on 3 L. I have seen and evaluated the patient on the day of discharge. HOSPITAL COURSE: The patient is a 61-year-old female with history of COPD who presented to the [facility] ency room with complaints of shortness of breath. She was evaluated and diagnosed with: 1. Pneumonia. She was initiated on Levaquin as well as azithromycin and Rocephin. Her symptoms hav e significantly improved. She had no signs of sepsis at the time of admission. She will continue on oral antibiotic therapy at the time of disposition with outpatient followup. 2. Chronic hypoxemic respiratory failure. She normally requires 4 L of oxygen. She is on 3 L of ox ygen. She does have old disease and COPD. She will continue her Advair as an outpatient. 3. Diabetes mellitus. Her blood glucose was elevated at time of admission in the setting of acute i nfection. We have reinitiated her home medications. She will continue these in the outpatient [facility]. 4. Hypertension. This is managed with her home medications. DISPOSITION: The patient states that she feels significantly better. She is eager to be discharged home. There are no pending studies. Followup will be with her primary care physician, Dr. Tawanna ny at the [facility]. DISCHARGE MEDICATIONS: Please refer to EMR form. I have provided the patient a prescription for Lev aquin as well as azithromycin. /[id number]/MODL
--- NOTE | 2016-12-03 15:21 | ASDISCHSUM ---
Discharge Information Plan Status:Home with No Needs Medically Cleared to Leave: Discharge Date:12/03/2016 02:58 PM CM D/C Disposition:Home, Routine, Self-Care ADT D/C Disposition:Home, Routine, Self-Care Projected Discharge Date:12/03/2016 02:58 PM Transportation at D/C: Discharge Delay Reason: Follow-Up Date:12/03/2016 02:58 PM Discharge Slot: Final Diagnosis: Placement Information Patient Contact Information Contact Name:AUGIE Relationship: Address:[address] Work Phone: City:[place] Alternate Phone: [facility]/Zip Code:[place] [address] Email: Financial Information Financial Class: Primary Plan Desc:[employer] FIRST [employer] Primary Plan Number:[id number] Secondary Plan Desc: Secondary Plan Number: Assessment Information Intervention Information Intervention Type:*Incorrect Registration Date of Service:12/03/2016 05:34 AM Patient Type:Inpatient Staff Member:DONALD Mckee Kerry Hours: Discipline: Severity: Comment:
[2016-12-03] MEDS ORDERED: INSULIN DETEMIR 60 UNIT SQ SCH (21:00)
[2016-12-03] MEDS ORDERED: AZITHROMYCIN 250 MG TAB PO SCH (21:00)
== END 2016-12-03 14:58 | disposition home or self-care (01) ==
LOC: INTOOBSV 20:23 → F3N 22:03
PROVIDERS: ADMIT Internal Medicine; ATTEND Internal Medicine
DX: J18.9 Pneumonia, unspecified organism (principal); J96.11 Chronic respiratory failure with hypoxia; E11.9 Type 2 diabetes mellitus without complications; I10 Essential (primary) hypertension
CPT/HCPCS: 71020; 96361; 96365; 96375; 99285; G0378; J0696; J1650; J1815; J1885; J1956

== ENCOUNTER 2016-12-20 13:54 | Emergency (ER) | payer MEDICAID ==
--- NOTE | 2016-12-20 14:14 | CPEKG ---
Heart Rate: 79 RR Interval: 759 P-R Interval: 140 QRSD Interval: 84 QT Interval: 400 QTC Interval: 459 P [place]: 40 QRS [place]: 57 T Wave [place]: 61 EKG Severity - BORDERLINE ECG - EKG Impression: SINUS RHYTHM EKG Impression: BORDERLINE T ABNORMALITIES, ANT-LAT LEADS EKG Impression: No significant change from previous Electronically Signed By: Scott Ma 20-Dec-2016 14:31:05
[2016-12-20 14:17] VITALS: RESP 20; O2SAT 94
--- NOTE | 2016-12-20 14:29 | EDPHY ---
H & P Stated Complaint: SOB, Left Shoulder Pain Time Seen by Provider: 12/20/16 14:11 HPI/ROS: CHIEF COMPLAINT: Shoulder pain and pleuritic pain HISTORY OF PRESENT ILLNESS: Patient is a 68-year-old female with a history of COPD, diabetes hypertension with to admissions recently for pneumonia. She was discharged about a month ago after being admitted for pneumonia and appropriately treated. She states that she felt better but that for the last 3 months she has had left shoulder pain that radiates down to her elbow and hand. She did not mention this to them while she was in the hospital. She did see her primary doctor who recommended she go to physical therapy but she has not done this. She states that her shoulder only hurts when she moves it. It is not her rest. She does not remember any specific trauma or injury. No weakness or numbness. She also states that over the last 3 days she has felt increased think shortness of breath and pleuritic pain throughout her entire back bilaterally. She denies fevers or cough. She has not required increased oxygen requirements. She is on 4 L at baseline. She does wear CPAP at night and states that this has been broken for the last 3 months. No GI symptoms. REVIEW OF SYSTEMS: Constitutional: denies: chills, fever, recent illness, recent injury EENTM: denies: blurred vision, double vision, nose congestion Respiratory: See HPI Cardiac: denies: chest pain, irregular heart rate, lightheadedness, palpitations Gastrointestinal/Abdominal: denies: abdominal pain, diarrhea, nausea, vomiting, blood streaked stools Genitourinary: denies: dysuria, frequency, hematuria, pain Musculoskeletal: See HPI Skin: denies: lesions, rash, jaundice, bruising Neurological: denies: headache, numbness, paresthesia, tingling, dizziness, weakness Hematologic/Lymphatic: denies: blood clots, easy bleeding, easy bruising Immunologic/allergic: denies: HIV/AIDS, transplant EXAM: GENERAL: Well-appearing, well-nourished and in no acute distress. HEAD: Atraumatic, normocephalic. EYES: Pupils equal round and reactive to light, extraocular movements intact, sclera anicteric, conjunctiva are normal. ENT: TMs normal, nares patent, oropharynx clear without exudates. Moist mucous membranes. NECK: Normal range of motion, supple without lymphadenopathy or JVD. LUNGS: Left upper lobe rhonchi HEART: Regular rate and rhythm without murmurs, rubs or gallops. ABDOMEN: Soft, nontender, normoactive bowel sounds. No guarding, no rebound. No masses appreciated. BACK: No CVA tenderness, no spinal tenderness, step-offs or deformities EXTREMITIES: Normal range of motion, no pitting or edema. No clubbing or cyanosis. NEUROLOGICAL: Cranial nerves II through XII grossly intact. Normal speech, normal gait. 5/5 strength, normal movement in all extremities, normal sensation PSYCH: Normal mood, normal affect. SKIN: Warm, dry, normal turgor, no visible rashes or lesions. 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 DM, HTN, resp problems, SLEEP APNEA, appy, kidney stones, gallstones. htn, COPD on home o2 - Family History Significant Family History: No pertinent family hx - Social History Smoking Status: Never smoked Alcohol Use: Sober Drug Use: None Constitutional: Initial Vital Signs Temperature (C) 36.8 C 12/20/16 14:00 Heart Rate 81 12/20/16 14:00 Respiratory Rate 20 12/20/16 14:00 Blood Pressure 120/88 H 12/20/16 14:00 O2 Sat (%) 94 12/20/16 14:00 O2 Delivery Mode Nasal Cannula O2 (L/minute) 4 Allergies/Adverse Reactions: No Known Allergies Allergy (Verified 12/02/16 17:37) Home Medications: Medication Instructions Recorded Hydrochlorothiazide [HCTZ (*)] 25 mg PO DAILY 08/09/13 Montelukast Sodium [Singulair 10 10 mg PO DAILY 08/09/13 mg (*)] Sertraline HCl [Zoloft 100mg (*)] 100 mg PO DAILY 08/09/13 Fluticasone/Salmeter 250/50Mcg 1 puffs IH BID 03/31/15 [Advair 250/50 (*)] Aspirin [Aspirin 81mg (*)] 81 mg PO DAILY 08/22/15 Lisinopril [Zestril 20 mg (*)] 20 mg PO DAILY 08/22/15 Atenolol [Tenormin 25 mg (*)] 25 mg PO DAILY #30 tab 01/27/16 Insulin Detemir [Levemir Flextouch] 60 unit SQ HS 07/10/16 Insulin Detemir [Levemir Flextouch] 30 unit SQ DAILY #30 insuln.pen 07/14/16 Insulin Aspart [novoLOG] 28 unit SC AC 12/02/16 Rosuvastatin Calcium [Crestor 20mg 10 mg PO DAILY 12/02/16 (*)] Acetaminophen [Tylenol 325mg (*)] 650 mg PO Q4HRS PRN tab 12/03/16 Azithromycin [Zithromax] 250 mg PO DAILY #4 tab 12/03/16 levOFLOXACIN [levAQUIN (*)] 750 mg PO DAILY #5 tab 12/03/16 AZITHROMYCIN [Z-PACK] 250 mg PO DAILY #6 tab 12/20/16 Medical Decision Making - Diagnostics EKG Interpretation: An EKG obtained and was read and documented in trace view. Please see trace view for full reading and report. Sinus rhythm no acute ischemic changes Imaging Results: Imaging Impressions Chest X-Ray 12/20/16 14:25 Impression: Radiographically similar to 12/02/2016. Imaging: Discussed imaging studies w/ outside upholsterer Radiologist ED Course/Re-evaluation: The patient's lab work and x-ray are reassuring. She is afebrile. She is not hypoxic here. Because of her COPD and the bronchitis on x-ray I will start her on azithromycin. She and her family agree with this and are eager to go home otherwise. We discussed indications for returning. Differential Diagnosis: Partial list of the Differential diagnosis considered include but were not limited to; bronchitis, pneumonia and although unlikely based on the history and physical exam, I also considered acute coronary disease, arrhythmia, dissection, PE. I discussed these differential diagnoses and the plan with the patient as well as the usual and expected course. The patient understands that the diagnosis is provisional and that in medicine we are not always correct and that further workup is often warranted. Usual and customary warnings were given. All of the patient's questions were answered. The patient was instructed to return to the emergency department should the symptoms at all worsen or return, otherwise to followup with the physician as we discussed. - Data Points Laboratory Results: Laboratory Results 12/20/16 14:00 12/20/16 14:00 12/20/16 12/20/16 12/20/16 14:00 14:00 14:00 WBC 8.65 10^3/uL 10^3/uL (3.80-9.50) RBC 4.85 10^6/uL 10^6/uL (4.18-5.33) Hgb 14.4 g/dL g/dL (12.6-16.3) Hct 43.6 % % (38.0-47.0) MCV 89.9 fL fL (81.5-99.8) MCH 29.7 pg pg (27.9-34.1) MCHC 33.0 g/dL g/dL (32.4-36.7) RDW 12.0 % % (11.5-15.2) Plt Count 222 10^3/uL 10^3/uL (150-400) MPV 10.0 fL fL (8.7-11.7) Neut % (Auto) 67.8 % % (39.3-74.2) Lymph % (Auto) 25.2 % % (15.0-45.0) [place] % (Auto) 6.4 % % (4.5-13.0) Eos % (Auto) 0.0 % L % (0.6-7.6) Baso % (Auto) 0.3 % % (0.3-1.7) Nucleat RBC Rel Count 0.0 % % (0.0-0.2) Absolute Neuts (auto) 5.86 10^3/uL 10^3/uL (1.70-6.50) Absolute Lymphs (auto) 2.18 10^3/uL 10^3/uL (1.00-3.00) Absolute Monos (auto) 0.55 10^3/uL 10^3/uL (0.30-0.80) Absolute Eos (auto) 0.00 10^3/uL L 10^3/uL (0.03-0.40) Absolute Basos (auto) 0.03 10^3/uL 10^3/uL (0.02-0.10) Absolute Nucleated RBC 0.00 10^3/uL 10^3/uL (0-0.01) Immature Gran % 0.3 % % (0.0-1.1) Immature Gran # 0.03 10^3/uL 10^3/uL (0.00-0.10) APTT 26.7 SEC SEC (23.0-38.0) D-Dimer < 0.27 ug/mLFEU ug/mLFEU (0.00-0.50) Sodium 137 mEq/L mEq/L (134-144) Potassium 4.4 mEq/L mEq/L (3.5-5.2) Chloride 94 mEq/L L mEq/L (97-110) Carbon Dioxide 33 mEq/l H mEq/l (22-31) Anion Gap 10 mEq/L mEq/L (8-16) BUN 15 mg/dL mg/dL (7-23) Creatinine 0.5 mg/dL L mg/dL (0.6-1.0) Estimated GFR > 60 Glucose 327 mg/dL H mg/dL (70-100) Calcium 9.4 mg/dL mg/dL (8.5-10.4) Total Bilirubin 0.6 mg/dL mg/dL (0.1-1.4) Conjugated Bilirubin 0.4 mg/dL mg/dL (0.0-0.5) Unconjugated Bilirubin 0.2 mg/dL mg/dL (0.0-1.1) AST 52 IU/L H IU/L (14-46) ALT 58 IU/L H IU/L (9-52) Alkaline Phosphatase 117 IU/L IU/L (38-126) Troponin I < 0.012 ng/mL ng/mL (0.000-0.034) Total Protein 7.6 g/dL g/dL (6.3-8.2) Albumin 3.7 g/dL g/dL (3.5-5.0) Lipase 176 IU/L IU/L (23-300) Microbiology Results: MICROBIOLOGY 12/20/16 15:20 Nasal, Sinus - Anaerobic Tube/Swab Respiratory Panel (PCR) - Final No Organism Detected Medications Given: Discontinued Medications Azithromycin (Zithromax) 500 mg PO EDNOW ONE PRN Reason: Protocol Stop: 12/20/16 15:56 Last Admin: 12/20/16 16:04 Dose: 500 mg Departure - Departure Disposition: Home, Routine, Self-Care Clinical Impression: Acute bronchitis Qualifiers: Bronchitis organism: unspecified organism Qualified Code(s): J20.9 - Acute bronchitis, unspecified Condition: Fair Instructions: Acute Bronchitis (ED), COPD (Chronic Obstructive Pulmonary Disease) (ED) Additional Instructions: Plan de seguimiento: Hacer grover de seguimiento con dany Sullivan. Referrals: Patient,NotPresent [Unknown] - As per Instructions Tawanna Sullivan MD [Doctor of Osteopathy] - As per Instructions Prescriptions: AZITHROMYCIN [Z-PACK] 250 mg PO DAILY #6 tab
[2016-12-20 14:42] LABS: % IMMATURE GRANULYOCYTES 0.3 % (0.0-1.1); ABSOLUTE IMMATURE GRANULOCYTES 0.03 10^3/uL (0.00-0.10); ADD DIFF? NO; ADD MORPH? NO; ADD SCAN? NO; ATYPICAL LYMPHOCYTE FLAG 10 (0-99); FRAGMENT RBC FLAG 0 (0-99); HEMATOCRIT 43.6 % (38.0-47.0); HEMOGLOBIN 14.4 g/dL (12.6-16.3); LEFT SHIFT FLG 0 (0-99); LIPEMIA HEMOLYSIS FLAG 80 (0-99); MEAN CELL HEMOGLOBIN 29.7 pg (27.9-34.1); MEAN CELL VOLUME 89.9 fL (81.5-99.8); PLATELET CLUMPS FLAG 0 (0-99); PLATELET COUNT 222 10^3/uL (150-400); RED BLOOD CELL COUNT 4.85 10^6/uL (4.18-5.33)
[2016-12-20 14:49] LABS: APTT 26.7 SEC (23.0-38.0)
[2016-12-20 14:56] LABS: ALANINE AMINOTRANSFERASE 58 IU/L (9-52); ALBUMIN 3.7 g/dL (3.5-5.0); ALKALINE PHOSPHATASE 117 IU/L (38-126); ANION GAP 10 mEq/L (8-16); ASPARTATE AMINOTRANSFERASE 52 IU/L (14-46); BILIRUBIN,TOTAL 0.6 mg/dL (0.1-1.4); BILIRUBIN-CONJUGATED 0.4 mg/dL (0.0-0.5); BILIRUBIN-UNCONJUGATED 0.2 mg/dL (0.0-1.1); CALCIUM 9.4 mg/dL (8.5-10.4); CARBON DIOXIDE 33 mEq/l (22-31); CHLORIDE 94 mEq/L (97-110); CREATININE 0.5 mg/dL (0.6-1.0); GLOMERULAR FILTRATION RATE > 60; GLUCOSE 327 mg/dL (70-100); POTASSIUM 4.4 mEq/L (3.5-5.2); SODIUM 137 mEq/L (134-144); TOTAL PROTEIN 7.6 g/dL (6.3-8.2)
[2016-12-20 15:06] LABS: TROPONIN I < 0.012 ng/mL (0.000-0.034)
[2016-12-20] MEDS ORDERED: AZITHROMYCIN 250 MG TAB PO ONE (15:55)
[2016-12-20 16:56] VITALS: BP 114/66; PULSE 74; TEMP 98.4
== END 2016-12-20 16:56 | disposition home or self-care (01) ==
LOC: EDUNIT#
DX: J20.9 Acute bronchitis, unspecified (principal); I10 Essential (primary) hypertension; E11.9 Type 2 diabetes mellitus without complications; J44.9 Chronic obstructive pulmonary disease, unspecified; Z79.4 Long term (current) use of insulin; Z79.82 Long term (current) use of aspirin

== ENCOUNTER 2017-06-07 12:14 | Emergency (ER) | payer MEDICAID ==
[2017-06-07] MEDS ORDERED: KETOROLAC 30 MG/1 ML SDV IVP ONE (13:12)
[2017-06-07] MEDS ORDERED: ONDANSETRON 4 MG/2 ML VIAL IVP ONE (13:12)
[2017-06-07] MEDS ORDERED: NS 1,000 ML IV ONE (13:12)
[2017-06-07] MEDS ORDERED: MAG HYDROX/AL HYDROX/SIMETH 30 ML UDCUP PO ONE (13:12)
--- NOTE | 2017-06-07 13:12 | EDPHY ---
H & P Time Seen by Provider: 06/07/17 12:59 HPI/ROS: Chief complaint. Dizzy, headache, trouble breathing HPI. 62-year-old female with 3 day history of weakness, fatigue, posterior headache, nausea. She also tells me she has upper abdominal pain that radiates through to back. She has fever at night. Slight shortness of breath especially when she walks. No chest pain. Nausea but no vomiting or diarrhea. Tingling in hands and feet. She has had previous history of breathing problems but not other symptoms. Denies urinary symptoms. ROS Constitutional. Fever at night and generalized weakness Eyes. no problems with vision ENT. no sore throat, no nasal drainage Cardiovascular. no chest pain Respiratory. Shortness of breath with some cough Abdominal. Upper abdominal pain with nausea but no vomiting or diarrhea . no problems urinating MS. no calf pain/swelling, no neck/back pain, no joint pain Skin. no rash Lymph. no swollen glands Neuro. Posterior headache and dizzy Past Medical/Surgical History: Is past medical history chronic fatigue, arthritis, TB, diabetes, hypertension, sleep apnea, kidney stones gallstones, hypertension, CO2 Social History: Single, nonsmoker, no alcohol Smoking Status: Never smoked Physical Exam: General Appearance: Alert pleasant well-developed female mild distress vital signs are stable Eyes: Pupils equal and round no pallor or injection. ENT, Mouth: Mucous membranes are moist. Respiratory: There are no retractions, lungs are clear to auscultation. Cardiovascular: Regular rate and rhythm. Gastrointestinal: Abdomen is soft and mildly tender in the epigastrium, no masses, bowel sounds normal. Neurological: Awake and alert, sensory and motor exams grossly normal. Skin: Warm and dry, no rashes. Musculoskeletal: Neck is supple nontender. Extremities symmetrical, full range of motion. Psychiatric: Patient is oriented X 3, there is no agitation. Constitutional: Initial Vital Signs Temperature (C) 37 C 06/07/17 12:23 Heart Rate 62 06/07/17 12:23 Respiratory Rate 20 06/07/17 12:23 Blood Pressure 134/80 H 06/07/17 12:23 O2 Sat (%) 95 06/07/17 12:23 O2 Delivery Mode Nasal Cannula O2 (L/minute) 2 Allergies/Adverse Reactions: No Known Allergies Allergy (Verified 06/07/17 12:21) Home Medications: Medication Instructions Recorded Hydrochlorothiazide [HCTZ (*)] 25 mg PO DAILY 08/09/13 Montelukast Sodium [Singulair 10 10 mg PO DAILY 08/09/13 mg (*)] Sertraline HCl [Zoloft 100mg (*)] 100 mg PO DAILY 08/09/13 Fluticasone/Salmeter 250/50Mcg 1 puffs IH BID 03/31/15 [Advair 250/50 (*)] Aspirin [Aspirin 81mg (*)] 81 mg PO DAILY 08/22/15 Lisinopril [Zestril 20 mg (*)] 20 mg PO DAILY 08/22/15 Atenolol [Tenormin 25 mg (*)] 25 mg PO DAILY #30 tab 01/27/16 Insulin Detemir [Levemir Flextouch] 60 unit SQ HS 07/10/16 Insulin Detemir [Levemir Flextouch] 30 unit SQ DAILY #30 insuln.pen 07/14/16 Insulin Aspart [novoLOG] 28 unit SC AC 12/02/16 Rosuvastatin Calcium [Crestor 20mg 10 mg PO DAILY 12/02/16 (*)] Acetaminophen [Tylenol 325mg (*)] 650 mg PO Q4HRS PRN tab 12/03/16 Medical Decision Making - Diagnostics EKG Interpretation: EKG interpreted by me shows normal sinus rhythm normal interval and axis. QRS is normal there is no significant ST elevation or depression. There is no arrhythmia. The rate is 67 Imaging Results: Imaging Impressions Chest X-Ray 06/07/17 13:13 Impression: No evidence for acute cardiopulmonary abnormality. Stable chronic findings as above. Abdomen Ultrasound 06/07/17 13:48 Impression: 1. No cholelithiasis or biliary ductal dilation. 2. No right hydronephrosis. 3. Hepatomegaly and hepatic steatosis without ascites. Findings and recommendations discussed with Emergency Department physician, Dr. Kvng Mar at 1448 hours on June 07, 2017. Final report concurs with initial preliminary interpretation. One-view chest x-ray interpreted by me shows no pneumonia Abdominal ultrasound reviewed by me and discussed with Dr. Cox knee shows no gallstones, gallbladder wall is 3 mm. Steatosis is present which is been there before. No ascites. No hydronephrosis. No evidence of cholecystitis Procedures: IV normal saline. Toradol, lorazepam, a Zofran IV ED Course/Re-evaluation: asl interpreter is Maria Alejandra Simpson On re-evaluation patient is stable. She wants to go home. The patient, her son and I discussed imaging lab results. We discussed treatment plan including criteria for return importance of follow-up and further evaluation. They expressed understanding and agreement Differential Diagnosis: I considered pneumonia, congestive heart failure, gastritis, cholecystitis. - Data Points Laboratory Results: Laboratory Results 06/07/17 13:15 06/07/17 13:15 06/07/1718 06/07/17 15:13 13:15 13:15 WBC 6.79 10^3/uL 10^3/uL (3.80-9.50) RBC 4.72 10^6/uL 10^6/uL (4.18-5.33) Hgb 13.8 g/dL g/dL (12.6-16.3) Hct 43.5 % % (38.0-47.0) MCV 92.2 fL fL (81.5-99.8) MCH 29.2 pg pg (27.9-34.1) MCHC 31.7 g/dL L g/dL (32.4-36.7) RDW 13.2 % % (11.5-15.2) Plt Count 165 10^3/uL 10^3/uL (150-400) MPV 9.4 fL fL (8.7-11.7) Neut % (Auto) 69.1 % % (39.3-74.2) Lymph % (Auto) 22.4 % % (15.0-45.0) [place] % (Auto) 7.7 % % (4.5-13.0) Eos % (Auto) 0.1 % L % (0.6-7.6) Baso % (Auto) 0.3 % % (0.3-1.7) Nucleat RBC Rel Count 0.0 % % (0.0-0.2) Absolute Neuts (auto) 4.69 10^3/uL 10^3/uL (1.70-6.50) Absolute Lymphs (auto) 1.52 10^3/uL 10^3/uL (1.00-3.00) Absolute Monos (auto) 0.52 10^3/uL 10^3/uL (0.30-0.80) Absolute Eos (auto) 0.01 10^3/uL L 10^3/uL (0.03-0.40) Absolute Basos (auto) 0.02 10^3/uL 10^3/uL (0.02-0.10) Absolute Nucleated RBC 0.00 10^3/uL 10^3/uL (0-0.01) Immature Gran % 0.4 % % (0.0-1.1) Immature Gran # 0.03 10^3/uL 10^3/uL (0.00-0.10) D-Dimer 0.29 ug/mLFEU ug/mLFEU (0.00-0.50) Sodium Potassium Chloride Carbon Dioxide Anion Gap BUN Creatinine Estimated GFR Glucose Calcium Total Bilirubin Conjugated Bilirubin Unconjugated Bilirubin AST ALT Alkaline Phosphatase Troponin I Total Protein Albumin Lipase Urine Color YELLOW Urine Appearance CLEAR Urine pH 6.0 (5.0-7.5) Ur Specific [place] 1.018 (1.002-1.030) Urine Protein NEGATIVE (NEGATIVE) Urine Ketones NEGATIVE (NEGATIVE) Urine Blood NEGATIVE (NEGATIVE) Urine Nitrate NEGATIVE (NEGATIVE) Urine Bilirubin NEGATIVE (NEGATIVE) Urine Urobilinogen 2.0 EU H EU (0.2-1.0) Ur Leukocyte Esterase NEGATIVE (NEGATIVE) Urine RBC NONE SEEN /hpf /hpf (0-3) Urine WBC 1-3 /hpf /hpf (0-3) Ur Epithelial Cells TRACE /lpf /lpf (NONE-1+) Hyaline Casts 1-5 /lpf /lpf (0-1) Urine Mucus TRACE /lpf /lpf (NONE-1+) Urine Glucose 2+ H (NEGATIVE) 06/07/17 13:15 WBC RBC Hgb Hct MCV MCH MCHC RDW Plt Count MPV Neut % (Auto) Lymph % (Auto) [place] % (Auto) Eos % (Auto) Baso % (Auto) Nucleat RBC Rel Count Absolute Neuts (auto) Absolute Lymphs (auto) Absolute Monos (auto) Absolute Eos (auto) Absolute Basos (auto) Absolute Nucleated RBC Immature Gran % Immature Gran # D-Dimer Sodium 139 mEq/L mEq/L (135-145) Potassium 3.9 mEq/L mEq/L (3.5-5.2) Chloride 94 mEq/L L mEq/L (97-110) Carbon Dioxide 36 mEq/l H mEq/l (22-31) Anion Gap 9 mEq/L mEq/L (8-16) BUN 14 mg/dL mg/dL (7-23) Creatinine 0.6 mg/dL mg/dL (0.6-1.0) Estimated GFR > 60 Glucose 269 mg/dL H mg/dL (70-100) Calcium 8.4 mg/dL L mg/dL (8.5-10.4) Total Bilirubin 0.4 mg/dL mg/dL (0.1-1.4) Conjugated Bilirubin 0.2 mg/dL mg/dL (0.0-0.5) Unconjugated Bilirubin 0.2 mg/dL mg/dL (0.0-1.1) AST 382 IU/L H IU/L (14-46) ALT 189 IU/L H IU/L (9-52) Alkaline Phosphatase 132 IU/L H IU/L (38-126) Troponin I < 0.012 ng/mL ng/mL (0.000-0.034) Total Protein 7.2 g/dL g/dL (6.3-8.2) Albumin 3.2 g/dL L g/dL (3.5-5.0) Lipase 148 IU/L IU/L (23-300) Urine Color Urine Appearance Urine pH Ur Specific [place] Urine Protein Urine Ketones Urine Blood Urine Nitrate Urine Bilirubin Urine Urobilinogen Ur Leukocyte Esterase Urine RBC Urine WBC Ur Epithelial Cells Hyaline Casts Urine Mucus Urine Glucose Medications Given: Discontinued Medications Al Hydroxide/Mg Hydroxide (Maalox Susp) 30 ml PO ONCE ONE Stop: 06/07/17 13:13 Last Admin: 06/07/17 13:25 Dose: 30 ml Sodium Chloride (Ns) 1,000 mls @ 0 mls/hr IV EDNOW ONE; Wide Open PRN Reason: Protocol Stop: 06/07/17 13:13 Last Admin: 06/07/17 13:24 Dose: 1,000 mls Ketorolac Tromethamine (Toradol) 30 mg IVP EDNOW ONE Stop: 06/07/17 13:13 Last Admin: 06/07/17 13:25 Dose: 30 mg Lorazepam (Ativan Injection) 1 mg IVP EDNOW ONE Stop: 06/07/17 13:14 Last Admin: 06/07/17 13:25 Dose: 1 mg Ondansetron HCl (Zofran) 4 mg IVP EDNOW ONE Stop: 06/07/17 13:13 Last Admin: 06/07/17 13:25 Dose: 4 mg Departure - Departure Disposition: Home, Routine, Self-Care Clinical Impression: Hyperglycemia due to type 2 diabetes mellitus Qualifiers: 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 Watch your diet especially to control blood sugar. Return for worsening symptoms. Re-evaluation by Dr. Sullivan in 2-3 days Referrals: Tawanna Sullivan MD [Primary Care Provider] - 2-3 days, call for appt.
[2017-06-07] MEDS ORDERED: LORazepam 2 MG/ML INJ IVP ONE (13:13)
[2017-06-07 13:27] LABS: PLATELET COUNT 165 10^3/uL (150-400)
--- NOTE | 2017-06-07 13:41 | CPEKG ---
Heart Rate: 67 RR Interval: 896 P-R Interval: 148 QRSD Interval: 90 QT Interval: 440 QTC Interval: 465 P [place]: 62 QRS [place]: 71 T Wave [place]: 52 EKG Severity - NORMAL ECG - EKG Impression: SINUS RHYTHM Electronically Signed By: Kvng Mar 07-Jun-2017 14:28:13
[2017-06-07 14:06] VITALS: RESP 16
[2017-06-07 16:57] VITALS: BP 125/44; PULSE 64; TEMP 98.2; O2SAT 98
== END 2017-06-07 16:55 | disposition home or self-care (01) ==
DX: E11.65 Type 2 diabetes mellitus with hyperglycemia (principal); I10 Essential (primary) hypertension; Z79.4 Long term (current) use of insulin; Z79.82 Long term (current) use of aspirin
CPT/HCPCS: 96374; J1885; J2060; J2405

== ENCOUNTER 2017-06-10 18:30 | Observation (INO) | payer MEDICAID ==
[2017-06-10] MEDS ORDERED: ONDANSETRON 4 MG/2 ML VIAL IVP ONE (19:21)
[2017-06-10] MEDS ORDERED: NS 1,000 ML IV ONE (19:21)
[2017-06-10 19:26] LABS: PLATELET COUNT 182 10^3/uL (150-400)
--- NOTE | 2017-06-10 20:09 | EDPHY ---
H & P Time Seen by Provider: 06/10/17 19:41 HPI/ROS: CHIEF COMPLAINT: Right flank/abd pain HISTORY OF PRESENT ILLNESS: 62-year-old female presents with right flank/abd pain. Onset of abd pain several days ago. She was seen in this ED on 2017. LFTs were slightly elevated and ultrasound revealed hepatomegaly, without gallstones. Hepatitis screen revealed positive IgG, negative IgM. She was told she had a hepatitis A and to follow up in the clinic. She has appointment next week at [facility]. However today the pain worsened, is moderate to severe and is associated with nausea and vomiting. Taking ibuprofen without relief. The pain is centered around the right flank and increases with movement and bending. The pain is relieved somewhat at rest. She also has epigastric pain that is severe and constant. No change with eating. History of gastritis and she thinks that this may be similar to prior gastritis symptoms. However, this pain is worse and no relief with typical meds at home. REVIEW OF SYSTEMS: Constitutional: No fever, no chills Eyes: No visual changes ENT: No sore throat Respiratory: No cough, no shortness of breath Cardiac: No chest pain Genitourinary: no dysuria Musculoskeletal: No leg pain or swelling Skin: No rash Neurological: No headache, no weakness Psychiatric: No depression Past Medical/Surgical History: Diabetes Hypertension COPD, oxygen-dependent Social History: Recently traveled to [place] Smoking Status: Never smoked Physical Exam: General Appearance: Alert, pleasant, appears in pain Eyes: Pupils equal and round, no conjunctival pallor or icterus ENT, Mouth: Mucous membranes moist Neck: Normal inspection Respiratory: Lungs are clear to auscultation Cardiovascular: Regular rate and rhythm Gastrointestinal: Abdomen is soft, epigastric tenderness Back: Tenderness over the right flank area to light palpation Neurological: A&O, nonfocal, normal gait Skin: Warm and dry, no rash Extremities: Nontender, no pedal edema Psychiatric: Mood and affect normal Constitutional: Initial Vital Signs Temperature (C) 36.9 C 06/10/17 18:47 Heart Rate 78 06/10/17 18:47 Respiratory Rate 20 06/10/17 18:47 Blood Pressure 149/89 H 06/10/17 18:47 O2 Sat (%) 95 06/10/17 18:47 O2 Delivery Mode Nasal Cannula Allergies/Adverse Reactions: No Known Allergies Allergy (Verified 06/07/17 12:21) Home Medications: Medication Instructions Recorded Hydrochlorothiazide [HCTZ (*)] 25 mg PO DAILY 08/09/13 Montelukast Sodium [Singulair 10 10 mg PO DAILY 08/09/13 mg (*)] Sertraline HCl [Zoloft 100mg (*)] 100 mg PO DAILY 08/09/13 Fluticasone/Salmeter 250/50Mcg 1 puffs IH BID 03/31/15 [Advair 250/50 (*)] Aspirin [Aspirin 81mg (*)] 81 mg PO DAILY 08/22/15 Lisinopril [Zestril 20 mg (*)] 20 mg PO DAILY 08/22/15 Atenolol [Tenormin 25 mg (*)] 25 mg PO DAILY #30 tab 01/27/16 Insulin Detemir [Levemir Flextouch] 120 unit SQ HS 07/10/16 Rosuvastatin Calcium [Crestor 20mg 10 mg PO DAILY 12/02/16 (*)] Acetaminophen [Tylenol 325mg (*)] 650 mg PO Q4HRS PRN tab 12/03/16 Insulin Detemir [Levemir Flextouch] 80 unit SQ DAILY 06/11/17 Ranitidine HCl 150 mg PO BID #60 tablet 06/11/17 Sucralfate 1 gm PO ACHS #120 tablet 06/11/17 Medical Decision Making - Diagnostics Imaging Results: Abdomen/Pelvis CT 06/10/17 20:05 Impression: 1. There is no CT evidence of nephroureterolithiasis or obstructive uropathy. 2. Hepatic steatosis. 3. Normal unenhanced CT scan of the pancreas (despite biochemical evidence of pancreatitis). There is no peripancreatic fluid collection or edema. 4. Status post appendectomy. Attention: This CT examination is specifically designed to evaluate patients who are clinically suspected of having acute obstructive uropathy. This examination does not use radiographic contrast, and as such, provides only a limited evaluation of the abdomen, pelvis, and retroperitoneum. If there is further clinical suspicion for pathological conditions other than obstructive uropathy, a complete CT evaluation of the abdomen and pelvis utilizing intravenous, oral, and rectal contrast should be considered. Findings were discussed with JUAN MAURO MD at 21:08, on 06/10/2017. ED Course/Re-evaluation: This patient presents with persistent abdominal pain and vomiting. Recent hepatitis screen reveals positive hepatitis A IgG and negative IgM. This is consistent with prior infection with hepatitis A, no active infection. IV normal saline 1 L, morphine 4 mg IV and Zofran [address] scan of the abdomen and pelvis ordered. Laboratory studies reveal elevated lipase, 301, consistent with early pancreatitis, and mildly elevated LFTs, similar to prior LFTs. CT scan is unremarkable. The patient feels better after morphine and Zofran IV. Abdominal exam is unchanged. She will need to be admitted for acute pancreatitis. The hospitalist service was consulted for admission. Differential Diagnosis: Differential diagnosis includes though it is not limited to appendicitis, cholecystitis, diverticulitis, pyelonephritis, bowel perforation, small bowel obstruction. - Data Points Laboratory Results: Laboratory Results 06/10/17 19:20 06/10/17 19:20 Medications Given: Discontinued Medications Al Hydroxide/Mg Hydroxide (Maalox Susp) 30 ml PO ONCE ONE Stop: 06/10/17 20:12 Last Admin: 06/10/17 20:22 Dose: 30 ml Enoxaparin Sodium (Lovenox) 40 mg SC DAILY YOAN Stop: 12/08/17 08:59 Last Admin: 06/11/17 10:05 Dose: 40 mg Hyoscyamine Sulfate (Levsin, Hyomax-Sl) 0.25 mg PO ONCE ONE Stop: 06/10/17 20:12 Last Admin: 06/10/17 20:24 Dose: 0.25 mg Sodium Chloride (Ns) 1,000 mls @ 0 mls/hr IV ONCE ONE PRN Reason: Wide Open Stop: 06/10/17 19:22 Last Admin: 06/10/17 19:45 Dose: 1,000 mls Sodium Chloride (Ns) 1,000 mls @ 100 mls/hr IV CONT YOAN Stop: 12/07/17 22:59 Last Admin: 06/11/17 00:33 Dose: 1,000 mls Lidocaine (Lidocaine 2% Viscous) 15 ml PO ONCE ONE Stop: 06/10/17 20:12 Last Admin: 06/10/17 20:22 Dose: 15 ml Metoclopramide HCl (Reglan Injection) 10 mg IVP EDNOW ONE Stop: 06/10/17 20:12 Last Admin: 06/10/17 20:22 Dose: 10 mg Morphine Sulfate (Morphine) 4 mg IVP EDNOW ONE Stop: 06/10/17 20:06 Last Admin: 06/10/17 20:22 Dose: 4 mg Ondansetron HCl (Zofran) 4 mg IVP EDNOW ONE Stop: 06/10/17 19:22 Last Admin: 06/10/17 19:46 Dose: 4 mg Pantoprazole Sodium (Protonix) 40 mg IVP EDNOW ONE Stop: 06/10/17 20:13 Last Admin: 06/10/17 20:22 Dose: 40 mg Pantoprazole Sodium (Protonix) 40 mg PO DAILY YOAN Stop: 12/08/17 08:59 Last Admin: 06/11/17 10:05 Dose: 40 mg Sucralfate (Carafate Suspension) 1 gm PO ACHS YOAN Stop: 12/08/17 04:14 Last Admin: 06/11/17 13:10 Dose: 1 gm Departure - Departure Disposition: [facility] Inpatient Acute Clinical Impression: Acute pancreatitis Qualifiers: Pancreatitis type: other Acute pancreatitis complication: no infection or necrosis Qualified Code(s): K85.80 - Other acute pancreatitis without necrosis or infection Condition: Fair
[2017-06-10] MEDS ORDERED: LIDOCAINE 2% VISCOUS 15 ML UDCUP PO ONE (20:11)
[2017-06-10] MEDS ORDERED: HYOSCYAMINE SULFATE 0.125 MG TAB PO ONE (20:11)
[2017-06-10] MEDS ORDERED: MAG HYDROX/AL HYDROX/SIMETH 30 ML UDCUP PO ONE (20:11)
[2017-06-10] MEDS ORDERED: METOCLOPRAMIDE 10 MG/2 ML VIAL IVP ONE (20:11)
[2017-06-10] MEDS ORDERED: PANTOPRAZOLE SODIUM 40 MG VIAL IVP ONE (20:12)
[2017-06-10] MEDS ORDERED: LORazepam 2 MG/ML INJ IVP PRN (22:59)
[2017-06-10] MEDS ORDERED: ONDANSETRON 4 MG/2 ML VIAL IVP PRN (22:59)
[2017-06-10] MEDS ORDERED: NS 1,000 ML IV SCH (23:00)
[2017-06-11] MEDS: SUCRALFATE 1 GM/10 ML UDCUP PO SCH ×3 (05:15→13:10)
[2017-06-11 05:21] LABS: PLATELET COUNT 150 10^3/uL (150-400)
[2017-06-11 05:32] LABS: INR 1.11 (0.83-1.16); PROTIME(PATIENT) 14.5 SEC (12.0-15.0)
--- NOTE | 2017-06-11 08:55 | GHP ---
[f rep st] HISTORY AND PHYSICAL DATE OF ADMISSION: 06/10/2017 CHIEF COMPLAINT: Abdominal pain, epigastric. HISTORY OF PRESENT ILLNESS: This is a very pleasant 62-year-old primarily Mohawk-speaking female wh o presents to the emergency department today for the second time this week with complaints of persist ent epigastric abdominal pain. Patient was also complaining of some right-sided flank and back pain. She denies any recent injuries. She did travel to [place] and returned recently, but no other sick contacts. No diarrhea. No fevers or chills. The patient does report some abdominal bloating postpr andially. She has not had any nausea, vomiting. No melena or hematochezia. The patient denies any dysuria or hematuria. No cough or rhinorrhea. The patient reports her epigastric pain is sharp in n ature. It did improve after a GI cocktail. The patient states that she does not prefer the minty fl avor, but clarified and she states that it did help with her pain. She previously had evaluation elbert t was negative for any cardiac etiology of her epigastric pain. The patient has not been taking any [id number] antacids since discharge. She does not drink any alcohol. REVIEW OF SYSTEMS: Negative, except as noted above. ALLERGIES: No known drug allergies. HOME MEDICATIONS: As per EMR: Sertraline 100 mg p.o. daily, Crestor 10 mg p.o. daily, Singulair 10 mg p.o. daily, lisinopril 20 mg p.o. daily, Levemir 30 units subcu daily, 60 units subcu at h.s., Asp art 28 units at a.c., HCTZ 25 p.o. daily, Advair 250 mg/50 one puff inhaled b.i.d., atenolol 25 mg p. o. daily, aspirin 81 mg p.o. daily, Tylenol 650 mg p.o. q.4 hours p.r.n. for pain. PAST MEDICAL HISTORY: Significant for COPD with oxygen dependence, chronic hypoxic respiratory failu re due to COPD and old dye granulomatous disease, benign essential hypertension, hyperlipidemia, GERD , hemorrhagic cystitis, nausea, vomiting, GIAN, obesity with BMI of 33.7, depression, anxiety, history of pneumonia, fatty liver. PAST SURGICAL HISTORY: Cataract surgery. FAMILY HISTORY: Diabetes type 2. SOCIAL HISTORY: Patient does not smoke, drink, or do drugs. CODE STATUS: Full. PHYSICAL EXAMINATION: VITAL SIGNS: Upon arrival to the emergency department, blood pressure 149/89. Heart rate is 78, respiratory rate 20. O2 saturation is 95% on room air, with temperature 36.9. V itals available at time of interview: Blood pressure is 118/71, heart rate 72, respiratory rate 14, O2 saturation 99% on 4 L by nasal cannula, temperature 36.5. GENERAL: No acute distress, pleasant, obese adult female, who is resting quietly in bed, asleep. Daughter is at bedside. HEAD: Normoceph alic, atraumatic. EYES: Extraocular muscles are grossly intact. Pupils equal, round, react to ligh t bilaterally and symmetric. Lens reflex is appreciated bilaterally. No scleral icterus, conjunctiv al injection. ENT: Mucous membranes appear slightly dry. No oropharyngeal erythema or exudates. N o nasal discharge. NECK: Supple, trachea midline. CV: Regular rate and rhythm. No murmurs, rubs, or gallops appreciated. Slightly limited cardiac evaluation secondary to body habitus. ABDOMEN: O bese, soft. Patient with some epigastric tenderness to palpation. No rebound or guarding appreciate d. Negative Gutierrez sign. RESPIRATORY: Lungs clear to auscultation bilaterally. No wheezes, rales, or rhonchi appreciated. Slightly diminished bibasilarly. BACK: Patient does have a large spasm on the left mid lower back. It is tender to palpation with movement. No CVA tenderness. : No supr apubic tenderness to palpation. MUSCULOSKELETAL: Patient with some generalized deconditioning. She does require some assistance to sit upright from a lying position. She does move all extremities. Strength 4/5 in upper and lower extremities bilaterally and symmetric. NEURO: Grossly nonfocal. No facial drooping. Cranial nerves 2-12 are intact, symmetric bilaterally. Patient is awake, alert, a nd oriented x4. PSYCH: Patient does appear a little bit anxious. 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 Thought process, content, and questions are appropriate. LABORATORY STUDIES: WBC 7.63, H and H 13.6 and 42.4, MCV of 91.8. Platelet count is 182. MCV 91.8. No bands. PT is 14.5. INR is 1.11. Sodium is 141, potassium 3.9, chloride 100. CO2 is 34. Anio n gap is 7. BUN is 12, creatinine 0.5. GFR greater than 60. Glucose is 201. Calcium is 8.5, total b ilirubin 0.4, albumin 3.3, total protein 7.4, total bilirubin 0.4. ALT is 143. AST is 197. Alkalin e phosphatase is 145. Lipase is 301. UA is negative. CT abdomen and pelvis: Image report reviewed by me. Negative evidence for nephroureterolithiasis. There is significant hepatic steatosis. Normal unenhanced CT scan of the pancreas, status post appy. Bronchiectasis in the posterior medial left lower lobe. Stable scarring in the anterior left lower lobe, unchanged from 2016. Granulomas. There are some cysts and shotty retrocrural lymph nodes. N o free fluid. ASSESSMENT AND PLAN: Pleasant 62-year-old female with history of diabetes, hypertension, hyperlipide gloria, gastroesophageal reflux disease, obstructive sleep apnea, obesity, who presents to the emergency department today with complaints of epigastric pain. 1. Patient without any laboratory or imaging or clinical findings consistent with pancreatitis, angelina cardoso was concerned from the ED provider. Her lipase is 1 point over normal and is much less than the fe w times upper limit of normal required. Previously, when patient presented several days ago, her lip ase at that time was also normal. She does have some elevated liver function tests, but suspect this is related to her nonalcoholic hepatic steatosis. The patient reports that she did respond appropri ately to a GI cocktail. Will continue with sucralfate t.i.d. a.c. at this time. Also, will place krystina crandall on PPI and recommend that she continue this until she can follow up with her PCP. She may requ kam outpatient GI evaluation if her symptoms do not improve. 2. Right flank pain. This is musculoskeletal in nature, is palpable and reproducible in the right l ower chest, upper back. Heating pad was offered to the patient. She declined. PT, OT. 3. Hypoalbuminemia, likely related to patient's chronic medical problems. 4. Chronic hypoxic respiratory failure due to chronic obstructive pulmonary disease and granulomatou s disease. Continue supplemental oxygen. No evidence of exacerbation at this time. 5. Diabetes type 2. Plan to resume patient's home medications once available for reconciliation. 6. Benign essential hypertension. Blood pressures at this time are acceptable. Resume patient's HC TZ and atenolol. 7. Gastroesophageal reflux disease. PPI and sucralfate as noted above. 8. Obstructive sleep apnea, oxygen at nighttime. 9. Obesity with body mass index 33.7. Mobilize, dietary consult. 10. Depression. Continue Zoloft. 11. Hyperlipidemia. Continue statin. 12. Fluids, electrolytes, and nutrition. Advance diet as tolerated. Electrolyte monitoring replace ment if needed. 13. Prophylaxis: Sequential compression devices and Lovenox. 14. Code status is full. 15. Disposition. Patient admitted to observation at this time to medical floor. /[id number]/MODL
[2017-06-11] MEDS ORDERED: ENOXAPARIN 40 MG/0.4 ML SYR SC SCH (09:00)
[2017-06-11] MEDS ORDERED: PANTOPRAZOLE SODIUM 40 MG TAB PO SCH (09:00)
--- NOTE | 2017-06-11 15:07 | GDS ---
[f rep st] DISCHARGE SUMMARY DISCHARGE DIAGNOSES: 1. Epigastric pain, likely gastroesophageal reflux disease. 2. Nonalcoholic hepatic steatosis. 3. Hypoalbuminemia, chronic hypoxic respiratory failure. 4. Chronic obstructive pulmonary disease. 5. Granulomatous disease. 6. Type 2 diabetes. 7. Benign essential hypertension. 8. Obstructive sleep apnea, obesity. 9. Depression. 10. Hyperlipidemia. HISTORY OF PRESENT ILLNESS: A very pleasant 62-year-old Albanian-speaking female with history of obes ity, nonalcoholic hepatic steatosis, chronic hypoxemic respiratory failure, who presented to the ER f or the second time this week for persistent epigastric abdominal pain. She also had some right-sided flank and back pain. Denied any recent trauma or strain. She did recently travel to [place], but no other sick contacts. Denies fevers, chills, or sweats. No nausea, vomiting, or diarrhea. She repo rts the pain as sharp in her epigastric region that feels like stabbing. This had occurred when she was lying last night. This did improve after GI cocktail. She denies any chest pain, shortness of breath, dizziness or lightheadedness with exertion or rest. Does not drink alcohol. HOSPITAL COURSE BY PROBLEM: 1. Epigastric pain: This is likely secondary to GERD, as symptoms improved quickly with a GI cockta il. Ultrasound, 06/07/2017, was negative for stones or biliary ductal dilatation. Did show hepatic steatosis without ascites. CT was done yesterday with second visit, and this was negative for acute cause and confirmed steatosis. She had a negative troponin, EKG on the 3rd. Her lipase was minimall y elevated at 301 yesterday. She denies any alcohol. She is currently symptom free and eating witho ut issue. Provided prescription for sucralfate, and ranitidine. 2. Nonalcoholic steatosis: Prior labs showed a negative ESTHER, antimitochondrial, and antismooth musc le in 2009. She had hep serologies at that time that were negative for acute infection. She did hav e a positive hepatitis IgG, which she had in the past. She is followed by [facility]. I recomme nd that she have followup LFTs this week and a referral to Gastroenterology. She was counseled on di et and weight loss, which may be contributing. 3. Diabetes, followed by [facility]. Her insulin was recently uptitrated. 4. Chronic hypoxic respiratory failure: Secondary to COPD/granulomatous disease. Continue home oxy gen. No evidence of exacerbation. 5. GIAN, uses oxygen at night. 6. Obesity. Again, counseled on exercise and diet. 7. Depression. Zoloft. 8. Hyperlipidemia. Statin. DISPOSITION: Patient is stable for discharge home. DISCHARGE MEDICATIONS: New medications: 1. Sucralfate 1 g q.i.d. 2. Ranitidine 150 mg b.i.d. FOLLOWUP: 1. Primary care physician. 2. Repeat LFTs. 3. Referral to Gastroenterology. PHYSICAL EXAM: VITAL SIGNS: Today temperature 36.7, blood pressure 142/80, heart rate 80s, respirat ions 16, 95% 2 L. GENERAL: Obese female, in no acute distress, lying in bed. HEENT: PERRLA. EOMI . Oropharynx clear. CV: Regular rate and rhythm. No murmurs, gallops, rubs. LUNGS: Clear. ABDO MEN: Obese, but soft. Minimal tenderness in the epigastrium. No right upper quadrant pain. Positi ve bowel sounds. : No Tamez. MUSCULOSKELETAL: Moving all extremities. PSYCH: Alert and orient ed x3. This encounter was done with an in-person japanese interpreter. /[id number]/MODL
[2017-06-11 15:32] VITALS: BP 147/87
--- NOTE | 2017-06-11 18:27 | ASDISCHSUM ---
Discharge Information Plan Status:Home with No Needs Medically Cleared to Leave:06/11/2017 Discharge Date:06/11/2017 03:30 PM CM D/C Disposition:Home, Routine, Self-Care ADT D/C Disposition:Home, Routine, Self-Care Projected Discharge Date:06/11/2017 03:30 PM Transportation at D/C:Family Discharge Delay Reason: Follow-Up Date:06/11/2017 03:30 PM Discharge Slot:2 - 12:01 pm - 18:00 pm Final Diagnosis:Epigastric pain, likely GERD, nonalcoholic hepatic steatosis, COPD, DM type 2, obstr uctive sleep apnea, obesity, hyperlipidemia, depression Placement Information Patient Contact Information Contact Name:AUGIE Relationship: Address:[address] Work Phone: City:[place] Alternate Phone: [facility]/Zip Code:[place] [address] Email: Financial Information Financial Class:Medicaid 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 Comorbidities - select Answers: Chronic pulmonary disease all that apply Diabetes (uncontrolled or controlled) Other Notes: GERD, hepatic steatosis, obesity, GIAN , h yperlipidemia # of Emergency department Answers: 3-4 visits in the last 6 months Social determinants Answers: Mental health diagnosis (anxiety, depression, pers onality disorders, etc.) Score: 11 Date Signed: 06/11/2017 06:23 PM Electronically Signed By:Ann Marie Bee RN [facility] CM Progress Note CM Note CM Note Notes: Pt admitted for epigastric abdominal pain, likely GERD. Per MD notes, pt with an extensive medical history. Pt lives with her family and is Turkish speaking only. Pt to discharge home independently today with family support and no identified needs. Pt to follow up as directed. No IM/JEAN signed, not applicable. CM available for any further issues or concerns. Discharge Plan: Home independently with family support Date Signed: 06/11/2017 06:26 PM Electronically Signed By:Ann Marie Bee RN Intervention Information
== END 2017-06-11 15:30 | disposition home or self-care (01) ==
LOC: F1N 22:19
PROVIDERS: ADMIT Hospitalist; ATTEND Internal Medicine
DX: R10.13 Epigastric pain (principal); K76.0 Fatty (change of) liver, not elsewhere classified; E88.09 Other disorders of plasma-protein metabolism, not elsewhere classified; R94.5 Abnormal results of liver function studies; K21.9 Gastro-esophageal reflux disease without esophagitis; J96.11 Chronic respiratory failure with hypoxia; J44.9 Chronic obstructive pulmonary disease, unspecified; J98.4 Other disorders of lung; E11.9 Type 2 diabetes mellitus without complications; I10 Essential (primary) hypertension; G47.33 Obstructive sleep apnea (adult) (pediatric); E66.9 Obesity, unspecified; Z68.33 Body mass index [BMI] 33.0-33.9, adult; F32.9 Major depressive disorder, single episode, unspecified; E78.5 Hyperlipidemia, unspecified; F41.9 Anxiety disorder, unspecified; Z99.81 Dependence on supplemental oxygen
CPT/HCPCS: 74176; 96361; 96374; 96375; 99285; G0378; J1650; J2270; J2405; J2765

== ENCOUNTER 2017-10-04 14:52 | Emergency (ER) | payer MEDICAID ==
--- NOTE | 2017-10-04 15:32 | EDPHY ---
HPI/HX/ROS/PE/MDM Narrative: CHIEF COMPLAINT: Abdominal pain, blood in stool HISTORY OF PRESENT ILLNESS: This patient is a Micronesian-Speaking 62 year old female with history of hypertension, hyperlipidemia, CHF, COPD, and diabetes mellitus. She complains of severe abdominal pain ongoing for five days. The pain is generalized around her her abdomen and radiates around to her back. It is similar to pain from contractions before giving . She has tried Tylenol for relief. No identifiable provocation of palliation. Food does not change her symptoms. No history of similar symptoms. No vomiting or diarrhea. She endorses bright red blood associated with her bowel movements for the past four days. No fever, chills, chest pain, shortness of breath, palpitations, vomiting, diarrhea, urinary complaints, headache, lightheadedness. Of note, the patient generally takes daily ASA 81mg, but ran out 6 days ago. HPI obtained via professor of biology at bedside. REVIEW OF SYSTEMS: Aside from elements discussed in the HPI, a comprehensive 10-point review of systems was reviewed and is negative. PAST MEDICAL HISTORY: Hypertension, hyperlipidemia, CHF, COPD (home oxygen, CPAP ), type 1 diabetes mellitus, depression. Remote history of TB in childhood. History of kidney stones s/p surgery, appendectomy (2017), . SOCIAL HISTORY: Micronesian-speaking. No alcohol or tobacco use. VITAL SIGNS: Reviewed by me GENERAL: Uncomfortable appearing, rubbing abdomen. Well-developed, well- nourished, in no respiratory distress. HEENT: Atraumatic. Eyes: No icterus, no injection. Mouth: moist mucous membranes. No erythema or lesions. Neck: supple with no adenopathy. LUNGS: Clear to auscultation bilaterally, no wheezes, rhonchi or rales. CARDIAC: Regular rate and rhythm, no rubs, murmurs or gallops. ABDOMEN: Rotund, obese. Diffuse tenderness on exam. No specific RUQ tenderness. Soft, bowel sounds normal. RECTAL: No external hemorrhoids seen or internal hemorrhoids felt. Stool orangey -red in color. No melena or sri blood noted. BACK: No CVA tenderness. EXTREMITIES: No trauma. No edema. Range of motion is normal throughout. NEURO: Alert and oriented, grossly nonfocal. SKIN: Warm and dry, no rash. PSYCHIATRIC: Normal mentation, no agitation. Portions of this note were transcribed by a medical review coordinator. I personally performed a history, physical exam, medical decision making, and confirmed accuracy of information the transcribed note. ED Course: 62 y/o female presents with 5 day history of generalized abdominal pain. Plan for CT abdomen/pelvis. Plan for labs including CBC, chemistries, liver, lipase, lactic acid, UA, occult blood. 17:[address] Rivera, radiologist. CT negative for acute processes. No evidence of pancreatitis. Possible underlying liver disease and some atherosclerotic changes noted. Normal galbladder. Reviewed laboratory studies. Stool positive for occult blood. LFTs slightly elevated. BGL elevated. Reassessed. She is feeling fatigued. Her abdominal pain has resolved. She vomited earlier. Discussed imaging and laboratory results with the patient via professor of biology. Plan to discharge home in good condition with medication for nausea and pain. She will follow up with gastroenterology. Plan to administer GI cocktail, 40mg PO Protonix prior to departure. Plan for additional labs including H. pylori. Plan to consult with GI. Consulted with gastroenterology. They will follow up with the patient in the outpatient clinic. H. pylori negative. Plan to d/c as above. She will follow up outpatient with Dr. Villavicencio in the next few days. Her daughter is now at bedside. They are comfortable with this plan. MDM: After obtaining the patients history and performing an examination, differential diagnosis considered included but was not limited to gastritis, upper GI hemmorrage, cholecystitis, ischemic colitis, pancreatitis, kidney stones, urinary tract infections and other causes. - Data Points Imaging Results: CT Abd Pelvis: Impression: 1. No acute intraabdominal process or explanation for pain. 2. Chronic hepatic steatosis and features suspicious for early nonalcoholic steatohepatitis (LESLIE). 3. Scattered sigmoid diverticula. No acute diverticulitis. Findings discussed with Emergency Department Physician Delinquency Counselor , Jarad Wilcox PA-C, on October 04, 2017 at 1729. Imaging: Discussed imaging studies w/ call or contact centre coach Radiologist Laboratory Results: Laboratory Results 10/04/17 15:30 10/04/17 15:30 Medications Given: Discontinued Medications Al Hydroxide/Mg Hydroxide (Maalox Susp) 30 ml PO ONCE ONE Stop: 10/04/17 18:00 Last Admin: 10/04/17 18:34 Dose: 30 ml Famotidine (Pepcid) 40 mg PO EDNOW ONE Stop: 10/04/17 18:00 Last Admin: 10/04/17 18:34 Dose: 40 mg Hydromorphone HCl (Dilaudid) 1 mg IVP EDNOW ONE Stop: 10/04/17 15:49 Last Admin: 10/04/17 16:22 Dose: 1 mg Hyoscyamine Sulfate (Levsin, Hyomax-Sl) 0.25 mg PO ONCE ONE Stop: 10/04/17 18:00 Last Admin: 10/04/17 18:34 Dose: 0.25 mg Sodium Chloride (Ns) 1,000 mls @ 0 mls/hr IV EDNOW ONE; Wide Open PRN Reason: Protocol Stop: 10/04/17 15:49 Last Admin: 10/04/17 16:22 Dose: 1,000 mls Lidocaine (Lidocaine 2% Viscous) 15 ml PO ONCE ONE Stop: 10/04/17 18:00 Last Admin: 10/04/17 18:34 Dose: 15 ml General Time Seen by Provider: 10/04/17 15:22 Initial Vital Signs: Initial Vital Signs Temperature (C) 36.8 C 10/04/17 14:57 Heart Rate 80 10/04/17 14:57 Respiratory Rate 18 10/04/17 14:57 Blood Pressure 160/91 H 10/04/17 14:57 O2 Sat (%) 94 10/04/17 14:57 O2 Delivery Mode Nasal Cannula O2 (L/minute) 2 Allergies/Adverse Reactions: No Known Allergies Allergy (Verified 10/04/17 15:04) Home Medications: Medication Instructions Recorded Hydrochlorothiazide [HCTZ (*)] 25 mg PO DAILY 08/09/13 Montelukast Sodium [Singulair 10 10 mg PO DAILY 08/09/13 mg (*)] Sertraline HCl [Zoloft 100mg (*)] 100 mg PO DAILY 08/09/13 Fluticasone/Salmeter 250/50Mcg 1 puffs IH BID 03/31/15 [Advair 250/50 (*)] Aspirin [Aspirin 81mg (*)] 81 mg PO DAILY 08/22/15 Lisinopril [Zestril 20 mg (*)] 20 mg PO DAILY 08/22/15 Atenolol [Tenormin 25 mg (*)] 25 mg PO DAILY #30 tab 01/27/16 Insulin Detemir [Levemir Flextouch] 120 unit SQ HS 07/10/16 Rosuvastatin Calcium [Crestor 20mg 10 mg PO DAILY 12/02/16 (*)] Acetaminophen [Tylenol 325mg (*)] 650 mg PO Q4HRS PRN tab 12/03/16 Insulin Detemir [Levemir Flextouch] 80 unit SQ DAILY 06/11/17 Ranitidine HCl 150 mg PO BID #60 tablet 06/11/17 Sucralfate 1 gm PO ACHS #120 tablet 06/11/17 Departure - Departure Disposition: Home, Routine, Self-Care Clinical Impression: Guaiac positive stools Abdominal pain Qualifiers: Abdominal location: generalized Qualified Code(s): R10.84 - Generalized abdominal pain Condition: Good Instructions: Acute Abdominal Pain (ED) Additional Instructions: 1. Follow up with gastroenterology for further evaluation. Ask for Dr. Villavicencio, let the office staff know you were seen tonight in the emergency department. Please also follow up with your primary care physician. 2. Continue taking omeprazole as directed. Take ranitidine nightly as directed on the packaging. 3. For your abdominal pain, I suggested you start with a bland diet and advance as tolerated. This means start with clear liquids such as water, Gatorade, juice, flat non- caffeinated soda. If you tolerate clear liquids, then you may add bland foods such as bananas, rice, or toast. If you do not have any worsening of your symptoms, you may begin to resume a regular diet. 4. Return to the emergency department for increased or changing pain, uncontrollable vomiting or diarrhea, fever, chest pain, shortness of breath, or other worsening of condition. 1. Seguimiento con el gastroenterologo para dhara evaluacion mas o fondo. 2. Continue tomando omeprazole dannielle se le indico. [place] ranitidine por las noches dannielle se le indico en el paquete. 3. Para el dolor abdominal, le siguiero comenzar con dhara dieta blanda y avance dannielle sea tolerado. [place] significa comenzar con liquidos [place] dannielle agua, Gatorade, jugo, soda sin cafeina. Si usted tolera los liquidos [place], despues puede anadir comidas blandas dannielle bananas, arroz, o bui amy. Si usted no tiene ningun empeoramiento de bess sintomas, puede comenzar a resumir dhara dieta regular. 4. Regrese al departamento de emergencias por aumento o cambio del dolor, vomito o diarrea incontrolable, fiebre, dolor de pecho, falta de la respiracion , u otro empeoramiento de la condicion. Referrals: Tawanna Sullivan MD [Primary Care Provider] - As per Instructions Arnoldo Villavicencio MD [Medical Doctor] - As per Instructions Print Language: Micronesian Report Scribed for: Carole Garcia Report Scribed by: Yahaira Thornton Date of Report: 10/04/17 Time of Report: 15:30
[2017-10-04] MEDS ORDERED: NS 1,000 ML IV ONE (15:48)
[2017-10-04] MEDS ORDERED: HYDROmorphONE/DILAUDID 2 MG/ML INJ IVP ONE (15:48)
[2017-10-04 15:58] LABS: PLATELET COUNT 213 10^3/uL (150-400)
[2017-10-04] MEDS ORDERED: IOPAMIDOL (ISOVUE-300) 100 ML BTL ONE (16:21)
[2017-10-04] MEDS ORDERED: MAG HYDROX/AL HYDROX/SIMETH 30 ML UDCUP PO ONE (17:59)
[2017-10-04] MEDS ORDERED: FAMOTIDINE 20 MG TAB PO ONE (17:59)
[2017-10-04] MEDS ORDERED: HYOSCYAMINE SULFATE 0.125 MG TAB PO ONE (17:59)
[2017-10-04] MEDS ORDERED: LIDOCAINE 2% VISCOUS 15 ML UDCUP PO ONE (17:59)
[2017-10-04 19:30] VITALS: BP 115/90
--- NOTE | 2017-10-06 16:24 | ASMTCMCOM ---
CM Note CM Note Notes: [facility] contacted and referral faxed re ER visit and follow up appointment with Dr. Villavicencio. Patient's daughter Gloria contacted and informed that [facility] will call by Tuesday10/10/17 to schedule appointment Date Signed: 10/06/2017 04:24 PM Electronically Signed By:Rubina Mckeon RN
== END 2017-10-04 19:27 | disposition home or self-care (01) ==
DX: R10.84 Generalized abdominal pain (principal); K92.1 Melena; K76.0 Fatty (change of) liver, not elsewhere classified; K57.30 Diverticulosis of large intestine without perforation or abscess without bleeding; I10 Essential (primary) hypertension; J44.9 Chronic obstructive pulmonary disease, unspecified; E11.9 Type 2 diabetes mellitus without complications; Q42.3 Congenital absence, atresia and stenosis of anus without fistula; Z87.442 Personal history of urinary calculi; E86.9 Volume depletion, unspecified
CPT/HCPCS: 96374; J1170; Q9967

== ENCOUNTER 2017-11-23 10:13 | Emergency (ER) | payer MEDICAID ==
[2017-11-23 10:50] LABS: PLATELET COUNT 203 10^3/uL (150-400)
--- NOTE | 2017-11-23 11:00 | EDPHY ---
H & P Stated Complaint: 2 days intermittent epistaxis with coughing out blood clots/ fatigue Time Seen by Provider: 11/23/17 10:36 HPI/ROS: CHIEF COMPLAINT: Nose bleed, fatigue HISTORY OF PRESENT ILLNESS: 62-year-old female with IDDM presents with fatigue and nosebleed. Ongoing for T for the past couple weeks, attributed to a change in insulin dosing. Onset of epistaxis yesterday, left-sided, 3 episodes since yesterday. Associated with coughing up blood after the nosebleeds. No bleeding now. 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; Depression; Chronic Fatigue - Social History Smoking Status: Never smoked - Physical Exam Exam: General Appearance: Alert, pleasant Eyes: Pupils equal and round, no conjunctival pallor or injection ENT, Mouth: Bilateral nasal septum macerated, especially on the left, no current bleeding, mucous membranes moist Neck: Normal inspection Respiratory: Rales left lower lung field Cardiovascular: Regular rate and rhythm Gastrointestinal: Abdomen is soft and nontender Neurological: A&O, nonfocal exam Skin: Warm and dry, no rash Extremities: Nontender, no pedal edema Psychiatric: Mood and affect normal Constitutional: Initial Vital Signs Temperature (C) 37 C 11/23/17 10:21 Heart Rate 72 11/23/17 10:21 Respiratory Rate 18 11/23/17 10:21 Blood Pressure 125/79 H 11/23/17 10:21 O2 Sat (%) 95 11/23/17 10:21 O2 Delivery Mode Nasal Cannula O2 (L/minute) 3 Allergies/Adverse Reactions: No Known Allergies Allergy (Verified 11/23/17 10:20) Home Medications: Medication Instructions Recorded Hydrochlorothiazide [HCTZ (*)] 25 mg PO DAILY 08/09/13 Montelukast Sodium [Singulair 10 10 mg PO DAILY 08/09/13 mg (*)] Sertraline HCl [Zoloft 100mg (*)] 100 mg PO DAILY 08/09/13 Fluticasone/Salmeter 250/50Mcg 1 puffs IH BID 03/31/15 [Advair 250/50 (*)] Aspirin [Aspirin 81mg (*)] 81 mg PO DAILY 08/22/15 Lisinopril [Zestril 20 mg (*)] 20 mg PO DAILY 08/22/15 Atenolol [Tenormin 25 mg (*)] 25 mg PO DAILY #30 tab 01/27/16 Insulin Detemir [Levemir Flextouch] 120 unit SQ HS 07/10/16 Rosuvastatin Calcium [Crestor 20mg 10 mg PO DAILY 12/02/16 (*)] Acetaminophen [Tylenol 325mg (*)] 650 mg PO Q4HRS PRN tab 12/03/16 Insulin Detemir [Levemir Flextouch] 80 unit SQ DAILY 06/11/17 Ranitidine HCl 150 mg PO BID #60 tablet 06/11/17 Sucralfate 1 gm PO ACHS #120 tablet 06/11/17 Medical Decision Making - Diagnostics Imaging Results: Imaging Impressions Chest X-Ray 11/23/17 10:36 Impression: Nothing acute identified. ED Course/Re-evaluation: This patient presents with recurrent epistaxis. No active bleeding now. Hematocrit is normal. Hemoptysis is secondary to epistaxis. Chest x-ray is unremarkable. I considered packing the patient's nose, but given that she is on oxygen, I feel that this would lead to respiratory compromise. Given that she is not bleeding, no procedure performed. She will follow up with her primary care physician and with ENT. Instructions given for recurrent epistaxis. Differential Diagnosis: Differential diagnosis includes though not limited to severe hemorrhage, severe anemia, hypotension, coagulopathy - Data Points Laboratory Results: Laboratory Results 11/23/17 10:44 11/23/17 10:44 11/23/17 11/23/17 10:44 10:44 WBC 9.52 10^3/uL H 10^3/uL (3.80-9.50) RBC 4.45 10^6/uL 10^6/uL (4.18-5.33) Hgb 13.0 g/dL g/dL (12.6-16.3) Hct 40.1 % % (38.0-47.0) MCV 90.1 fL fL (81.5-99.8) MCH 29.2 pg pg (27.9-34.1) MCHC 32.4 g/dL g/dL (32.4-36.7) RDW 13.1 % % (11.5-15.2) Plt Count 203 10^3/uL 10^3/uL (150-400) MPV 9.3 fL fL (8.7-11.7) Neut % (Auto) 70.5 % % (39.3-74.2) Lymph % (Auto) 22.3 % % (15.0-45.0) [place] % (Auto) 6.6 % % (4.5-13.0) Eos % (Auto) 0.1 % L % (0.6-7.6) Baso % (Auto) 0.3 % % (0.3-1.7) Nucleat RBC Rel Count 0.0 % % (0.0-0.2) Absolute Neuts (auto) 6.71 10^3/uL H 10^3/uL (1.70-6.50) Absolute Lymphs (auto) 2.12 10^3/uL 10^3/uL (1.00-3.00) Absolute Monos (auto) 0.63 10^3/uL 10^3/uL (0.30-0.80) Absolute Eos (auto) 0.01 10^3/uL L 10^3/uL (0.03-0.40) Absolute Basos (auto) 0.03 10^3/uL 10^3/uL (0.02-0.10) Absolute Nucleated RBC 0.00 10^3/uL 10^3/uL (0-0.01) Immature Gran % 0.2 % % (0.0-1.1) Immature Gran # 0.02 10^3/uL 10^3/uL (0.00-0.10) Sodium 142 mEq/L mEq/L (135-145) Potassium 3.5 mEq/L mEq/L (3.3-5.0) Chloride 100 mEq/L mEq/L (97-110) Carbon Dioxide 36 mEq/l H mEq/l (22-31) Anion Gap 6 mEq/L L mEq/L (8-16) BUN 13 mg/dL mg/dL (7-23) Creatinine 0.5 mg/dL L mg/dL (0.6-1.0) Estimated GFR > 60 Glucose 126 mg/dL H mg/dL (70-100) Calcium 8.6 mg/dL mg/dL (8.5-10.4) Departure - Departure Disposition: Home, Routine, Self-Care Clinical Impression: Epistaxis Condition: Good Instructions: Nosebleed (ED) Additional Instructions: If the nosebleed recurs, hold pressure over your nose for 15 min. If you have persistent bleeding, return to the emergency department Call to make an appointment with ENT. Referrals: Tawanna Sullivan MD [Primary Care Provider] - As per Instructions Kvng Mercer MD [Medical Doctor] - As per Instructions (Call to make an appointment.)
[2017-11-23 13:03] VITALS: BP 133/65
== END 2017-11-23 13:03 | disposition home or self-care (01) ==
DX: R04.0 Epistaxis (principal); R53.83 Other fatigue

== ENCOUNTER 2018-01-12 07:37 | Day surgery (SDC) | payer MEDICAID ==
[2018-01-12] MEDS ORDERED: LR 1,000 ML IV ONE (08:06)
[2018-01-12] MEDS ORDERED: LIDOCAINE 1% 2 ML INJ ID PRN (08:06)
--- NOTE | 2018-01-12 08:42 | PDGENHP ---
History and Physical - Chief Complaint abdominal pain, blood in stool - History of Present Illness Pleasant 62yo female with recent hx of abdominal pain and blood stool. History Information - Allergies/Home Medication List Allergies/Adverse Reactions: No Known Allergies Allergy (Verified 01/09/18 14:37) Home Medications: Hydrochlorothiazide [HCTZ (*)] DAILY 08/09/13 [Last Taken 2 Days Ago ~01/10/18] Montelukast Sodium [Singulair 10 mg (*)] DAILY 08/09/13 [Last Taken 1 Day Ago ~ 01/11/18] Sertraline HCl [Zoloft 100mg (*)] DAILY 08/09/13 [Last Taken 1 Day Ago ~01/11/18 ] Aspirin [Aspirin 81mg (*)] DAILY 08/22/15 [Last Taken 1 Day Ago ~01/11/18] Lisinopril [Zestril 20 mg (*)] DAILY 08/22/15 [Last Taken 1 Day Ago ~01/11/18] Insulin Detemir [Levemir Flextouch] HS 07/10/16 [Last Taken 1 Day Ago ~01/11/18] Rosuvastatin Calcium [Crestor 20mg (*)] DAILY 12/02/16 [Last Taken 1 Day Ago ~] Insulin Detemir [Levemir Flextouch] DAILY 06/11/17 [Last Taken 1 Day Ago ~] Atenolol [Tenormin 25 mg (*)] DAILY 01/09/18 [Last Taken 2 Days Ago ~01/10/18] I have personally reviewed and updated: family history, medical history, social history, surgical history - Past Medical History COPD, diabetes type 2, hypertension - Surgical History Reports: no pertinent surgical hx - Family History Positive for: diabetes type II. Negative for: cancer - Social History Smoking Status: Never smoked Alcohol Use: None Drug Use: None Review of Systems Review of Systems: ROS: 10pt was reviewed & negative except for what was stated in HPI & below Physical Exam Physical Exam: Temp Pulse Resp BP Pulse Ox 36.6 C 77 16 139/75 H 96 01/12/18 08:05 01/12/18 08:05 01/12/18 08:05 01/12/18 08:05 01/12/18 08:05 Constitutional: no apparent distress Eyes: PERRL Ears, Nose, Mouth, Throat: moist mucous membranes Cardiovascular: regular rate and rhythym Gastrointestinal: normoactive bowel sounds Skin: warm Neurologic: AAOx3 Psychiatric: interacting appropriately Assessment & Plan Assessment: 1. blood in stool 2. abd pain Plan: 1. colonoscopy 2. upper endoscopy
--- NOTE | 2018-01-12 08:49 | PDANEPAE ---
ANE History of Present Illness colonoscopy ANE Past Medical History - Cardiovascular History Hx Hypertension: Yes Hx Arrhythmias: No Hx Chest Pain: No Hx Coronary Artery / Peripheral Vascular Disease: No Hx CHF / Valvular Disease: No Hx Palpitations: No - Pulmonary History Hx COPD: Yes Hx Asthma/Reactive Airway Disease: No Hx Recent Upper Respiratory Infection: No Hx Oxygen in Use at Home: Yes O2 in Use at Home (L/minute): 3L @ rest, 4L w/activity Hx Sleep Apnea: Yes Sleep Apnea Screening Result - Last Documented: Positive Pulmonary History Comment: had TB as a child, lungs dense and scarred. GIAN positive, uses CPap - Neurologic History Hx Cerebrovascular Accident: No Hx Seizures: No Hx Dementia: No - Endocrine History Hx Diabetes: Yes Endocrine History Comment: DM type 2 - Renal History Hx Renal Disorders: Yes Renal History Comment: hx of kidney stones - Liver History Hx Hepatic Disorders: No - Neurological & Psychiatric Hx Hx Neurological and Psychiatric Disorders: Yes Neurological / Psychiatric History Comment: depression - Cancer History Hx Cancer: No - Congenital Disorder History Hx Congenital Disorders: No - GI History Hx Gastrointestinal Disorders: Yes Gastrointestinal History Comment: GERD. abdominal pain w/eating. blood in stools - Other Health History Other Health History: glasses for reading. frequent nose bleeds - Chronic Pain History Chronic Pain: No - Surgical History Prior Surgeries: appendectomy w/partial cecectomy. ANE Review of Systems Review of systems is: negative Review of Systems: - Exercise capacity METS (RN): 2 METS ANE Patient History - Allergies Allergies/Adverse Reactions: No Known Allergies Allergy (Verified 01/09/18 14:37) - Home Medications Home medications: home medication list seen and reviewed Home Medications: Hydrochlorothiazide [HCTZ (*)] DAILY 08/09/13 [Last Taken 2 Days Ago ~01/10/18] Montelukast Sodium [Singulair 10 mg (*)] DAILY 08/09/13 [Last Taken 1 Day Ago ~ 01/11/18] Sertraline HCl [Zoloft 100mg (*)] DAILY 08/09/13 [Last Taken 1 Day Ago ~01/11/18 ] Aspirin [Aspirin 81mg (*)] DAILY 08/22/15 [Last Taken 1 Day Ago ~01/11/18] Lisinopril [Zestril 20 mg (*)] DAILY 08/22/15 [Last Taken 1 Day Ago ~01/11/18] Insulin Detemir [Levemir Flextouch] HS 07/10/16 [Last Taken 1 Day Ago ~01/11/18] Rosuvastatin Calcium [Crestor 20mg (*)] DAILY 12/02/16 [Last Taken 1 Day Ago ~] Insulin Detemir [Levemir Flextouch] DAILY 06/11/17 [Last Taken 1 Day Ago ~] Atenolol [Tenormin 25 mg (*)] DAILY 01/09/18 [Last Taken 2 Days Ago ~01/10/18] - NPO status NPO Status: no food or drink >8 hours NPO Since - Liquids (Date): 01/12/18 NPO Since - Liquids (Time): 06:00 NPO Since - Solids (Date): 01/11/18 NPO Since - Solids (Time): 08:00 - Anes Hx Anes Hx: no prior problems - Smoking Hx Smoking Status: Never smoked - Alcohol Use Alcohol Use: None - Family Anes Hx Family Anes Hx: none Family Hx Anesthesia Complications: none ANE Labs/Vital Signs - Vital Signs Vital Signs: reviewed preoperatively; see RN documention for details Blood Pressure: 139/75 Heart Rate: 77 Respiratory Rate: 16 O2 Sat (%): 96 Height: 162.56 cm Weight: 86.183 kg ANE Physical Exam - Airway Neck exam: FROM Mallampati Score: Class 3 Mouth exam: normal dental/mouth exam - Pulmonary Pulmonary: no respiratory distress - Cardiovascular Cardiovascular: regular rate and rhythym - ASA Status ASA Status: III ANE Anesthesia Plan Total IV Anesthesia: Yes
[2018-01-12] MEDS ORDERED: LIDOCAINE 2% 100 MG/5 ML SYR ONE (08:58)
[2018-01-12] MEDS ORDERED: PROPOFOL/EMULSION 500 MG/50 ML BOTTLE IV ONE (08:58)
--- NOTE | 2018-01-12 09:11 | GIREPORT ---
Formerly [facility], 1928–1983 Surgical Services - Endoscopy Department Patient Name: Leslee Cruz Procedure Date: 01/12/2018 9:02 AM Patient Type: Outpatient Attending MD/ ER Physician: Adelaide Lemon MD Procedure: Upper GI endoscopy Indications: Epigastric abdominal pain, Functional Dyspepsia, Heartburn Providers: Adelaide Lemon MD Medicines: Sedation Required Anesthesia Staff Assistance Complications: No immediate complications. Description of Procedure: After obtaining informed consent, the endoscope was passed under direct vision. Throughout the procedure, the patient's blood pressure, pulse, and oxygen saturations were monitored continuously. The Endoscope was intro duced through the mouth, and advanced to the third part of duodenum. The uppe r GI endoscopy was accomplished without difficulty. The patient tolerated th e procedure well. Findings: The examined esophagus was normal. Diffuse mild inflammation characterized by congestion (edema) and eryth rabia was found in the entire examined stomach. Biopsies were taken with a co ld forceps for histology. The examined duodenum was normal. Biopsies for histology were taken wit h a cold forceps for evaluation of celiac disease. Estimated Blood Loss: Estimated blood loss: none. Post Op Diagnosis: - Normal esophagus. - Gastritis. Biopsied. - Normal examined duodenum. Biopsied. Recommendation: - Written discharge instructions were provided to the patient. - The signs and symptoms of potential delayed complications were discus sed with the patient. - Patient has a contact number available for emergencies. - Return to normal activities tomorrow. - Resume previous diet. - Continue present medications. - Await pathology results. Attending Participation: I personally performed the entire procedure. Adelaide Lemon MD Adelaide Lemon MD 01/12/2018 9:11:12 AM This report has been signed electronicallyDaus Ion MD Number of Addenda: 0 Note Initiated On: 01/12/2018 9:02 AM [email or web address]
--- NOTE | 2018-01-12 09:21 | GIREPORT ---
Formerly [facility] - Endoscopy Department Patient Name: Leslee Cruz Procedure Date: 01/12/2018 8:56 AM Patient Type: Outpatient Attending MD/ ER Physician: Adelaide Lemon MD Procedure: Colonoscopy Indications: Generalized abdominal pain, Hematochezia Providers: Adelaide Lemon MD Medicines: Sedation Required Anesthesia Staff Assistance Complications: No immediate complications. Description of Procedure: After obtaining informed consent, the scope was passed under direct vis ion. Throughout the procedure, the patient's blood pressure, pulse, and oxyg en saturations were monitored continuously. The Colonoscope with irrigatio n channel was introduced through the anus and advanced to the transverse colon. The colonoscopy was performed without difficulty. The patient tolerated the procedure well. The quality of the bowel preparation was inadequate. No anatomical landmarks were photographed. Findings: A moderate amount of semi-solid stool was found from descending colon t o transverse colon, precluding visualization. Estimated Blood Loss: Estimated blood loss: none. Post Op Diagnosis: - Preparation of the colon was inadequate. - Stool from descending to transverse colon. - No specimens collected. Recommendation: - Written discharge instructions were provided to the patient. - The signs and symptoms of potential delayed complications were discus sed with the patient. - Patient has a contact number available for emergencies. - Return to normal activities tomorrow. - Resume previous diet. - Continue present medications. - Repeat colonoscopy because the bowel preparation was poor. Attending Participation: I personally performed the entire procedure. Adelaide Lemon MD Adelaide Lemon MD 01/12/2018 9:21:30 AM This report has been signed electronicallyAdelaide Lemon MD Number of Addenda: 0 Note Initiated On: 01/12/2018 8:56 AM Total Procedure Duration Time 0 hours 4 minutes 34 seconds [email or web address]
[2018-01-12] MEDS ORDERED: ACETAMINOPHEN 500 MG TAB PO PRN (10:09)
[2018-01-12] MEDS ORDERED: ALBUTEROL 3 ML DEYVIAL IH PRN (10:09)
[2018-01-12] MEDS ORDERED: fentaNYL 100 MCG/2 ML INJ IVP PRN (10:09)
[2018-01-12] MEDS ORDERED: DEXAMETHASONE 4 MG/ML VIAL IVP PRN (10:09)
[2018-01-12] MEDS ORDERED: ONDANSETRON 4 MG/2 ML VIAL IVP PRN (10:09)
[2018-01-12] MEDS ORDERED: HYDROCODONE/APAP 5/325 TAB PO PRN (10:09)
[2018-01-12] MEDS ORDERED: oxyCODONE IR 5 MG TAB PO PRN (10:09)
[2018-01-12] MEDS ORDERED: NALOXONE HCL 0.4 MG/ML INJ IVP PRN (10:09)
--- NOTE | 2018-01-12 10:10 | POSTANESTH ---
Post Anesthetic Evaluation Cardiovascular Status: Similar to Pre-Op Cond Respiratory Status: Similar to Pre-op Cond. Level of Consciousness/Mental Status: Can Participate in Eval, Mildly Sleepy, Arousable Pain Control: Adequate, Prn Tx Ordered Nausea/Vomiting Control: Adequate, Prn Tx Ordered Complications Possibly Related to Anesthesia: None Noted
[2018-01-12 11:09] VITALS: BP 116/63
== END 2018-01-12 11:30 | disposition home or self-care (01) ==
LOC: FSGY 07:37
PROVIDERS: ATTEND Internal Medicine Gastroenterology
DX: R10.13 Epigastric pain (principal); R10.84 Generalized abdominal pain; K30 Functional dyspepsia; I10 Essential (primary) hypertension; J44.9 Chronic obstructive pulmonary disease, unspecified; G47.33 Obstructive sleep apnea (adult) (pediatric); E11.9 Type 2 diabetes mellitus without complications; K21.9 Gastro-esophageal reflux disease without esophagitis; F32.9 Major depressive disorder, single episode, unspecified
CPT/HCPCS: J2001; J2704

== ENCOUNTER 2018-01-19 08:56 | Emergency (ER) | payer MEDICAID ==
[2018-01-19] MEDS ORDERED: NS 1,000 ML IV ONE (09:18)
[2018-01-19 09:31] LABS: PLATELET COUNT 217 10^3/uL (150-400)
[2018-01-19] MEDS ORDERED: ONDANSETRON 4 MG/2 ML VIAL IVP ONE (09:34)
[2018-01-19] MEDS ORDERED: fentaNYL 100 MCG/2 ML INJ IVP ONE (09:34)
[2018-01-19 09:43] LABS: INR 1.13 (0.83-1.16); PROTIME(PATIENT) 14.7 SEC (12.0-15.0)
[2018-01-19] MEDS ORDERED: IOPAMIDOL (ISOVUE-300) 100 ML BTL ONE (10:19)
--- NOTE | 2018-01-19 11:00 | EDPHY ---
H & P Stated Complaint: Abdp pain, nausea and blood in stool Time Seen by Provider: 01/19/18 09:15 HPI/ROS: CLINICAL IMPRESSION: Generalized abdominal pain, bloody stools ASSESSMENT/PLAN: This is a 63-year-old female with a chronic, intermittent history of bloody stools who presents to the emergency department today with 2 bouts of bloody bowel movements and generalized abdominal pain since 3:00 a.m. This morning. Patient had a unremarkable EGD 6 days ago. Attempted colonoscopy at the same time was unsuccessful with poor visualization due to poor bowel prep. It was recommended that patient complete an additional round of appropriate bowel prep and repeat colonoscopy. Patient reports she has not yet heard from her GI doctor to set up a new appointment. Abdomen is soft with no focal peritoneal findings, distention or rigidity. Labs are reassuring, no hemodynamic instability, electrolyte imbalance, renal insufficiency, pancreatitis. Patient has known hepatic steatosis and chronically elevated liver enzymes secondary to this. She does not drink alcohol. CT scan shows no evidence of bowel wall perforation, diverticulitis, small-bowel obstruction, but does show some stool burden. EKG read by ED attending Dr. Hensley as normal sinus rhythm with no acute ST or T-wave changes. Vital signs have remained stable. 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 On reassessment she was feeling much better. Strongly encouraged her to contact GI to a set up a new colonoscopy. She did have guaiac-positive stools today with no palpable rectal mass. Patient agrees to this. Warning signs return to ER sooner outlined and discharge. DIFFERENTIAL DX: Differential diagnosis includes but not limited to bleeding diverticulitis, bowel perforation from recent procedure, small-bowel obstruction, rectal bleeding, upper GI bleeding, constipation. ED COURSE: 1058: CT scan results discussed with Dr. Rivera. No radiologic findings suggestive of acute diverticulitis, small-bowel obstruction, nephrolithiasis, ureterolithiasis, intra-abdominal abscess, intra-abdominal mass. Essentially unremarkable study, chronic fatty liver unchanged from prior. 1100: Case an EKG discussed with Dr. Xavier Hensley. EKG shows sinus rhythm, no acute ST or T-wave changes, labs reviewed. Abdomen soft with no focal peritoneal findings. Review of records indicate patient had EGD on the of this month by and unsuccessful colonoscopy at that time due to an adequate bowel prep. It was recommended patient have repeat colonoscopy. She is hemodynamically stable, vital signs stable, no evidence of acute surgical abdomen, ACS, hemodynamic instability, anemia. It was felt patient is safe for discharge home and follow up as an outpatient with GI. CHIEF COMPLAINT: Abdominal pain and nausea HPI: This is a 63-year-old [place] Citizen-speaking only female who presents to the emergency department with complaints of generalized abdominal pain associated with nausea that began at 2:00 a.m. This morning. No associated diarrhea or vomiting. She reports she had bowel movements at 3:00 a.m. And at 5:00 a.m. The both contained blood in the stool. She reports having similar symptoms in the past and believes approximately 1 month ago she had an outpatient EGD and un successful colonoscopy secondary to an adequate bowel prep. She reports her GI was supposed to call her to reschedule this but never did. She denies straining with bowel movements, hemorrhoids, or constipation. She has had some upper abdominal pain as well but no hematemesis. No reported fevers or chills. Pain does not radiate to the back and she denies chest pain and shortness of breath. No flank pain, dysuria, hematuria or urgency. No abnormal vaginal discharge or bleeding. She is not anticoagulated. She reports no prior cardiac history. She did not take anything for her symptoms today prior to arrival and was brought to the ED by her . PMH: Asthma, COPD, insulin-dependent diabetes, hypertension, hyperlipidemia, chronic fatigue, depression, morbid obesity Pertinent Past Surgical History: Previous appendectomy Family History: No reported family history of cardiac disease Social History: Nonsmoker, does not drink alcohol ROS: All other systems negative Constitutional: No fever, no chills, appetite change. Eyes: No discharge, vision change ENT: No sore throat, congestion, ear pain. Cardiovascular: No chest pain, no palpitations. Respiratory: No cough, no shortness of breath. Gastrointestinal: no vomiting, diarrhea. Genitourinary: No hematuria, dysuria, flank pain, pelvic pain Musculoskeletal: No back pain, joint swelling, joint pain, myalgias. Skin: No rashes, color change. Neurological: No headache, dizziness, weakness. PHYSICAL EXAM: General Appearance: Alert, oriented, appropriate, cooperative, NAD, well hydrated, non-toxic appearing, VSS, no hypoxia, morbidly obese, [place] Citizen- speaking only. HEENT: Oropharynx clear is no erythema or exudates, no tonsillar hypertrophy or asymmetry. Dentition without abnormality. Neck: Supple, nontender, no lymphadenopathy, no midline pain, FROM, no meningismus. Respiratory: There are no retractions, lungs are clear to auscultation. Cardiac: Regular rate and rhythm, no murmurs or gallops. Gastrointestinal: Abdomen is soft, generalized tenderness throughout, worse in the left lower quadrant, bowel sounds normal, no masses/hernia, no rigidity, guarding or focal peritoneal findings. Neurological: Alert and oriented x 3, CN 2-12 grossly intact, normal gait no ataxia, DTR's intact, normal sensation and strength Skin: Warm, dry, no rashes, no nodules on palpation. Musculoskeletal: Extremities are symmetrical, full range of motion, no tenderness, deformity, swelling, or erythema. Psychiatric: Patient is oriented X 3, there is no agitation. MEDICAL DECISION MAKING: Patient was seen independently. Secondary supervising physician at time of evaluation was Dr. Hensley. Diagnosis: Generalized abdominal pain, rectal bleeding. New, requires workup Summary: See Assessment and Plan for summary of ED visit Clinical lab tests: ordered / reviewed. Independent visualization of images, tracing, or specimens: Yes. Decision to obtain medical records or history from someone other than the patient: No Review / Summarize previous medical records: Reviewed recent GI procedure notes Discussed patient with another provider: mine utility operator, Dr. Hensley Patient Progress: Improved. 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; Depression; Chronic Fatigue - Social History Smoking Status: Never smoked Constitutional: Initial Vital Signs Temperature (C) 36.8 C 01/19/18 08:57 Heart Rate 78 01/19/18 08:57 Respiratory Rate 20 01/19/18 08:57 Blood Pressure 126/46 H 01/19/18 08:57 O2 Sat (%) 92 01/19/18 08:57 O2 Delivery Mode Nasal Cannula O2 (L/minute) 3 Allergies/Adverse Reactions: No Known Allergies Allergy (Verified 01/09/18 14:37) Home Medications: Medication Instructions Recorded Hydrochlorothiazide [HCTZ (*)] DAILY 08/09/13 Montelukast Sodium [Singulair 10 DAILY 08/09/13 mg (*)] Sertraline HCl [Zoloft 100mg (*)] DAILY 08/09/13 Aspirin [Aspirin 81mg (*)] DAILY 08/22/15 Lisinopril [Zestril 20 mg (*)] DAILY 08/22/15 Insulin Detemir [Levemir Flextouch] HS 07/10/16 Rosuvastatin Calcium [Crestor 20mg DAILY 12/02/16 (*)] Insulin Detemir [Levemir Flextouch] DAILY 06/11/17 Atenolol [Tenormin 25 mg (*)] DAILY 01/09/18 Medical Decision Making - Data Points Laboratory Results: Laboratory Results 01/19/18 09:24 01/19/18 09:24 Medications Given: Discontinued Medications Fentanyl (Sublimaze) 50 mcg IVP EDNOW ONE Stop: 01/19/18 09:35 Last Admin: 01/19/18 09:43 Dose: 50 mcg Sodium Chloride (Ns) 1,000 mls @ 0 mls/hr IV EDNOW ONE; Wide Open PRN Reason: Protocol Stop: 01/19/18 09:19 Last Admin: 01/19/18 09:27 Dose: 1,000 mls Ondansetron HCl (Zofran) 4 mg IVP EDNOW ONE Stop: 01/19/18 09:35 Last Admin: 01/19/18 09:43 Dose: 4 mg Departure - Departure Disposition: Home, Routine, Self-Care Clinical Impression: Generalized abdominal pain, Bloody stools Condition: Good Instructions: Rectal Bleeding (ED), Acute Abdominal Pain (ED) Additional Instructions: DISCHARGE INSTRUCTIONS FROM YOUR DOCTOR Thank you for visiting our emergency department today. Please keep in mind that discharge from the emergency department does not mean that there is nothing wrong - it simply means that we have not identified an emergency condition that requires further evaluation or treatment in the hospital. You should always plan to follow up with primary care for re-evaluation of your condition in the next 2-3 days. If you have been referred to a specialist, please call as soon as possible (today or tomorrow) to schedule your follow up appointment at the appropriate time. Instrucciones para la best de óscar de edwards Dr. Moctezumaas por visitar nuestra dong de emergencia hoy. Por favor darse cuenta que la daad de óscar de el departamento de emergencia no quiere decir que no pasa nada-simplemente quiere decir queno hemos identificado dhara condicion de emergencia que requiere mas evaluacion u tratamiento en el hospital. Siempre debes palnear grover de seguimiento con edwards de cuidado primario para re- evaluacion de edwards condicion en los proximos 2-3 zepeda. Si te jeronimo referido a un especialista, por favor llamar dutton pronto posible (hoy o manana) para programar edwards grover de seguimiento a la horaapropiada. [Your diagnostic evaluation was reassuring today. We did not identify dangerous cause for her abdominal pain. Your most recent upper and lower GI scope was 7 days ago. We strongly recommend you call your GI specialist and let them know your in the emergency department for abdominal pain and bloody stools and please arrange a routine follow-up colonoscopy. Your not bleeding to the point to need blood transfusion and her CT scan does not show any evidence of a surgical problem in the abdomen. You do not require a blood transfusion. It is important that you see her specialist and again we recommend a call today. Consider using Prilosec or Protonix [id number] for acid reflux symptoms. Your EKG was reassuring. Please return to the emergency department for worsening abdominal pain, heavy rectal bleeding, lightheadedness, dizziness, headache, shortness of breath, fevers or any other concerns. Edwards evaluacin diagnstica fue tranquilizadora alexandra. No identificamos causa peligrosa para edwards dolor abdominal. Edwards alcance GI superior e inferior ms reciente fue hace 7 joe. Le recomendamos encarecidamente que llame a edwards especialista en GI y hgales saber que est en el servicio de urgencias para el dolor abdominal y las deposiciones con radha, y zuleyma dhara colonoscopia de seguimiento de rutina. No est sangrando al punto de necesitar dhara transfusin de radha y edwards tomografa computarizada no muestra ninguna evidencia de un problema quirrgico en el abdomen. No necesita dhara transfusin de radha. Es importante que consulte a edwards especialista y nuevamente le recomendamos dhara llamada hoverna. Considere el uso de Prilosec o Protonix de venta brionna para los s ntomas de reflujo cido. Edwards EKG fue tranquilizador. Regrese a la dong de emergencias para empeorar el dolor abdominal, sangrado rectal abundante, mareos , mareos, dolor de bonnie, falta de aliento, fiebre o otra preocupacion. People present with illnesses and injuries in different ways, and it is always possible that we have missed something. You may always return for re-evaluation if symptoms worsen or if they are not improving or if you develop new/different symptoms. Again, thank you for choosing our emergency department. We hope that you feel better. Personas presentan con enfermedades y heridas en diferente maneras, y siempre es posible que no hemos indentificado algo. Siempre puede regresar para re- evaluacion si bess sintomas empeoran o si no mejoran o si desarollaas nuevo/ diferente sintomas. Otra vez, Amaya por escoger nuetro departamento de emergencia. Esperamos que se siente mejor. Referrals: Tawanna Sullivan MD [Primary Care Provider] - As per Instructions Adelaide Lemon MD [Medical Doctor] - As per Instructions
--- NOTE | 2018-01-19 11:05 | CPEKG ---
Test Reason : OPEN Blood Pressure : / mmHG Vent. Rate : 073 BPM Atrial Rate : 072 BPM P-R Int : 128 ms QRS Dur : 089 ms QT Int : 423 ms P-R-T Axes : -09 068 055 degrees QTc Int : 467 ms Sinus rhythm Confirmed by Xavier Hensley ([id number]) on 01/19/2018 11:04:59 AM Referred By: Confirmed By:Xavier Hensley
[2018-01-19 12:21] VITALS: BP 120/78
== END 2018-01-19 12:24 | disposition home or self-care (01) ==
DX: R10.0 Acute abdomen (principal); R19.5 Other fecal abnormalities; E86.9 Volume depletion, unspecified; Z90.49 Acquired absence of other specified parts of digestive tract
CPT/HCPCS: 96374; J2405; J3010; Q9967

== ENCOUNTER 2018-02-18 08:35 | Inpatient (IN) | payer MEDICAID ==
[2018-02-18] MEDS ORDERED: IPRATROPIUM/ALBUTEROL 3 ML DEYVIAL IH ONE (09:17)
[2018-02-18] MEDS ORDERED: NS 1,000 ML IV ONE (09:17)
[2018-02-18] MEDS ORDERED: ONDANSETRON 4 MG/2 ML VIAL IVP ONE (09:17)
[2018-02-18] MEDS ORDERED: methylPREDNISolone SOD SUCC 125 MG/2 ML VIAL IVP ONE (09:22)
[2018-02-18] MEDS ORDERED: ACETAMINOPHEN 325 MG TAB PO ONE (09:22)
--- NOTE | 2018-02-18 09:22 | EDPHY ---
H & P Stated Complaint: flu like symptoms congestion/ffever x 4 days Time Seen by Provider: 02/18/18 09:08 HPI/ROS: CHIEF COMPLAINT: Vomiting, fever HISTORY OF PRESENT ILLNESS: 63-year-old female with oxygen-dependent COPD and diabetes presents with vomiting and fever. Onset of sore throat, nasal congestion and fever 3 days ago. Associated with a moist cough, moderate myalgias and vomiting. Unable to tolerate oral fluids today. Feels slightly more short of breath than usual. Uses a home nebulizer. 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; Depression; Chronic Fatigue - Social History Smoking Status: Never smoked - Physical Exam Exam: General Appearance: Alert, pleasant Eyes: Pupils equal and round, no conjunctival pallor or injection ENT, Mouth: Mucous membranes moist, pharyngeal erythema Neck: Normal inspection Respiratory: Normal respiratory rate, Diffuse end expiratory wheezing Cardiovascular: Regular tachycardia, rate 100 Gastrointestinal: Mild diffuse tenderness Neurological: A&O, nonfocal exam Skin: Warm and dry, no rash Extremities: Normal inspection Psychiatric: Mood and affect normal Constitutional: Initial Vital Signs Temperature (C) 37.9 C 02/18/18 08:40 Heart Rate 112 H 02/18/18 08:40 Respiratory Rate 26 H 02/18/18 08:40 Blood Pressure 180/96 H 02/18/18 08:40 O2 Sat (%) 98 02/18/18 08:40 O2 Delivery Mode Nasal Cannula O2 (L/minute) 4 Allergies/Adverse Reactions: No Known Allergies Allergy (Verified 02/18/18 08:39) Home Medications: Medication Instructions Recorded Hydrochlorothiazide [HCTZ (*)] 25 mg PO DAILY 08/09/13 Montelukast Sodium [Singulair 10 10 mg PO DAILY 08/09/13 mg (*)] Sertraline HCl [Zoloft 100mg (*)] 100 mg PO DAILY 08/09/13 Aspirin [Aspirin 81mg (*)] 81 mg PO DAILY 08/22/15 Lisinopril [Zestril 20 mg (*)] 20 mg PO DAILY 08/22/15 Insulin Detemir [Levemir Flextouch] 22 units SQ HS 07/10/16 Rosuvastatin Calcium [Crestor 20mg 20 mg PO DAILY 12/02/16 (*)] Atenolol [Tenormin 25 mg (*)] 25 mg PO DAILY 01/09/18 Insulin Regular, Human [Humulin R 130 unit SQ HS 02/18/18 U-500 Kwikpen] Medical Decision Making - Diagnostics Imaging Results: Imaging Impressions Chest X-Ray 02/18/18 09:16 Impression: Nothing acute detected. If clinically indicated, a routine PA chest would be helpful to best evaluate for any change in cardiac size. Imaging: I viewed and interpreted images myself ED Course/Re-evaluation: This is a patient with oxygen-dependent COPD and diabetes who presents with flu- like symptoms, concerning for influenza/pneumonia. Meets SIRS criteria, lactate normal. IV normal saline 1 L and Zofran 4 mg IV given. Nausea improved after Zofran. DuoNeb and Solu-Medrol 125 mg IV given for COPD exacerbation. Tylenol 650 mg orally given for fever. Chest x-ray reveals a possible right middle lobe infiltrate. Blood cultures drawn and Rocephin and Zithromax IV given. Influenza A positive, Tamiflu 75 mg orally given. The hospitalist service was consulted for admission. Differential Diagnosis: Differential diagnosis includes pyelonephritis, cholecystitis, influenza, cellulitis, pneumonia, abscess, meningitis. - Data Points Laboratory Results: Laboratory Results 02/18/18 09:24 02/18/18 09:24 02/18/18 02/18/18 02/18/18 09:41 09:24 09:24 WBC 9.40 10^3/uL 10^3/uL (3.80-9.50) RBC 4.49 10^6/uL 10^6/uL (4.18-5.33) Hgb 12.8 g/dL g/dL (12.6-16.3) Hct 39.9 % % (38.0-47.0) MCV 88.9 fL fL (81.5-99.8) MCH 28.5 pg pg (27.9-34.1) MCHC 32.1 g/dL L g/dL (32.4-36.7) RDW 12.9 % % (11.5-15.2) Plt Count 190 10^3/uL 10^3/uL (150-400) MPV 9.6 fL fL (8.7-11.7) Neut % (Auto) 76.5 % H % (39.3-74.2) Lymph % (Auto) 15.2 % % (15.0-45.0) Rusk % (Auto) 7.7 % % (4.5-13.0) Eos % (Auto) 0.0 % L % (0.6-7.6) Baso % (Auto) 0.3 % % (0.3-1.7) Nucleat RBC Rel Count 0.0 % % (0.0-0.2) Absolute Neuts (auto) 7.19 10^3/uL H 10^3/uL (1.70-6.50) Absolute Lymphs (auto) 1.43 10^3/uL 10^3/uL (1.00-3.00) Absolute Monos (auto) 0.72 10^3/uL 10^3/uL (0.30-0.80) Absolute Eos (auto) 0.00 10^3/uL L 10^3/uL (0.03-0.40) Absolute Basos (auto) 0.03 10^3/uL 10^3/uL (0.02-0.10) Absolute Nucleated RBC 0.00 10^3/uL 10^3/uL (0-0.01) Immature Gran % 0.3 % % (0.0-1.1) Immature Gran # 0.03 10^3/uL 10^3/uL (0.00-0.10) VBG Lactic Acid 1.6 mmol/L mmol/L (0.7-2.1) Sodium 139 mEq/L mEq/L (135-145) Potassium 3.7 mEq/L mEq/L (3.5-5.2) Chloride 98 mEq/L mEq/L (97-110) Carbon Dioxide 30 mEq/l mEq/l (22-31) Anion Gap 11 mEq/L mEq/L (6-14) BUN 11 mg/dL mg/dL (7-23) Creatinine 0.6 mg/dL mg/dL (0.6-1.0) Estimated GFR > 60 Glucose 259 mg/dL H mg/dL (70-100) Calcium 8.5 mg/dL mg/dL (8.5-10.4) Procalcitonin Nasal Influenza A PCR Nasal Influenza B PCR 02/18/18 02/18/18 09:16 09:08 WBC RBC Hgb Hct MCV MCH MCHC RDW Plt Count MPV Neut % (Auto) Lymph % (Auto) Rusk % (Auto) Eos % (Auto) Baso % (Auto) Nucleat RBC Rel Count Absolute Neuts (auto) Absolute Lymphs (auto) Absolute Monos (auto) Absolute Eos (auto) Absolute Basos (auto) Absolute Nucleated RBC Immature Gran % Immature Gran # VBG Lactic Acid Sodium Potassium Chloride Carbon Dioxide Anion Gap BUN Creatinine Estimated GFR Glucose Calcium Procalcitonin 0.17 ng/mL H ng/mL (0.02-0.10) Nasal Influenza A PCR FLU A DETECTED H (NEGATIVE) Nasal Influenza B PCR NEGATIVE FOR FLU B (NEGATIVE) Medications Given: Albuterol/Ipratropium (Duoneb) 3 ml IH QID YOAN Stop: 08/17/18 11:59 Last Admin: 02/18/18 14:31 Dose: Not Given Sodium Chloride (Ns) 1,000 mls @ 75 mls/hr IV CONT YOAN Stop: 08/17/18 11:14 Last Admin: 02/18/18 14:27 Dose: 1,000 mls Insulin Human Lispro (Humalog Lispro) 0 unit SC TIDMEAL YOAN PRN Reason: Protocol Stop: 08/17/18 11:59 Last Admin: 02/18/18 14:31 Dose: Not Given Oseltamivir Phosphate (Tamiflu) 75 mg PO BID [facility] Stop: 02/22/18 21:01 Last Admin: 02/18/18 13:40 Dose: Not Given Discontinued Medications Acetaminophen (Tylenol) 650 mg PO EDNOW ONE Stop: 02/18/18 09:23 Last Admin: 02/18/18 09:29 Dose: 650 mg Albuterol/Ipratropium (Duoneb) 3 ml IH EDNOW ONE Stop: 02/18/18 09:18 Last Admin: 02/18/18 09:25 Dose: 3 ml Sodium Chloride (Ns) 1,000 mls @ 0 mls/hr IV EDNOW ONE; Wide Open PRN Reason: Protocol Stop: 02/18/18 09:18 Last Admin: 02/18/18 09:24 Dose: 1,000 mls Azithromycin 500 mg/ Sodium (Chloride) 255 mls @ 255 mls/hr IV EDNOW ONE PRN Reason: Protocol Stop: 02/18/18 11:25 Last Admin: 02/18/18 11:13 Dose: 255 mls Ceftriaxone Sodium/Dextrose (Rocephin 1 Gm (Premix)) 50 mls @ 100 mls/hr IV EDNOW ONE PRN Reason: Protocol Stop: 02/18/18 10:54 Last Admin: 02/18/18 10:33 Dose: 50 mls Methylprednisolone Sodium Succinate (Solu-Medrol) 125 mg IVP EDNOW ONE Stop: 02/18/18 09:23 Last Admin: 02/18/18 09:29 Dose: 125 mg Ondansetron HCl (Zofran) 4 mg IVP EDNOW ONE Stop: 02/18/18 09:18 Last Admin: 02/18/18 09:24 Dose: 4 mg Oseltamivir Phosphate (Tamiflu) 75 mg PO EDNOW ONE Stop: 02/18/18 10:27 Last Admin: 02/18/18 10:34 Dose: 75 mg Departure - Departure Disposition: [facility] Inpatient Acute Clinical Impression: Influenza A Pneumonia Qualifiers: Pneumonia type: due to unspecified organism Laterality: right Lung location: middle lobe of lung Qualified Code(s): J18.1 - Lobar pneumonia, unspecified organism Condition: Good
[2018-02-18 09:54] LABS: PLATELET COUNT 190 10^3/uL (150-400)
[2018-02-18] MEDS ORDERED: AZITHROMYCIN IV 500 MG in NS 250 ML IV ONE (10:26)
[2018-02-18] MEDS ORDERED: OSELTAMIVIR PHOSPHATE 75 MG CAP PO ONE (10:26)
[2018-02-18] MEDS ORDERED: ACETAMINOPHEN 325 MG TAB PO PRN (11:06)
[2018-02-18] MEDS ORDERED: ALBUTEROL 60 PUFFS/8 GM MDI IH PRN (11:06)
[2018-02-18] MEDS ORDERED: ONDANSETRON DISINTEGRATING 4 MG TAB PO PRN (11:06)
[2018-02-18] MEDS ORDERED: D50W 25 GM/50 ML SYR IVP PRN (11:06)
[2018-02-18] MEDS ORDERED: ONDANSETRON 4 MG/2 ML VIAL IVP PRN (11:06)
[2018-02-18] MEDS ORDERED: NS 1,000 ML IV SCH (11:15)
[2018-02-18] MEDS: OSELTAMIVIR PHOSPHATE 75 MG CAP PO SCH ×2 (13:40→21:22)
--- NOTE | 2018-02-18 13:46 | PDGENHP ---
History and Physical - Chief Complaint cough and shortness of breath - History of Present Illness Leslee Gastelum is a 63 year old female with pmh of IDDM, HTN, COPD on 4 liters chronically, HTN, HLD, depression who presented to the ER with complaints of shortness of breath and cough. she says for bout hte last 4 days she has felt like she is getting sick. she started with a mild cough which has progressed. Her cough is productive of green phlegm. she has also developed nausea and vomiting in the last 1-2 days but no diarrhea. her emesis is non bloody and non bilious. she is on 4 liters chronically but has not had to turn this up. She denied any orthopnea, or new edema. she says that her ribs are sore from coughing. History Information - Allergies/Home Medication List Allergies/Adverse Reactions: No Known Allergies Allergy (Verified 02/18/18 08:39) Home Medications: Hydrochlorothiazide [HCTZ (*)] 25 mg PO DAILY 08/09/13 [Last Taken 02/17/18] Montelukast Sodium [Singulair 10 mg (*)] 10 mg PO DAILY 08/09/13 [Last Taken ] Sertraline HCl [Zoloft 100mg (*)] 100 mg PO DAILY 08/09/13 [Last Taken 02/17/18] Aspirin [Aspirin 81mg (*)] 81 mg PO DAILY 08/22/15 [Last Taken 02/17/18] Lisinopril [Zestril 20 mg (*)] 20 mg PO DAILY 08/22/15 [Last Taken 02/17/18] Insulin Detemir [Levemir Flextouch] 22 units SQ HS 07/10/16 [Last Taken 02/17/18 ] Rosuvastatin Calcium [Crestor 20mg (*)] 20 mg PO DAILY 12/02/16 [Last Taken ] Atenolol [Tenormin 25 mg (*)] 25 mg PO DAILY 01/09/18 [Last Taken 02/17/18] Insulin Regular, Human [Humulin R U-500 Kwikpen] 130 unit SQ HS 02/18/18 [Last Taken 02/17/18] I have personally reviewed and updated: family history, medical history, social history, surgical history - Past Medical History COPD, diabetes type 2, hypertension, hyperlipidemia - Surgical History Reports: no pertinent surgical hx, appendectomy - Family History Positive for: diabetes type II. Negative for: cancer - Social History Smoking Status: Never smoked Alcohol Use: None Drug Use: None Review of Systems Review of Systems: ROS: 10pt was reviewed & negative except for what was stated in HPI & below Physical Exam Physical Exam: Temp Pulse Resp BP Pulse Ox 37.9 C 90 20 122/85 H 96 02/18/18 08:40 02/18/18 13:13 02/18/18 13:13 02/18/18 13:13 02/18/18 13:13 O2 (L/minute) 5 Constitutional: no apparent distress Eyes: PERRL, anicteric sclera, EOMI Ears, Nose, Mouth, Throat: moist mucous membranes, hearing normal, ears appear normal, no oral mucosal ulcers Cardiovascular: systolic murmur Peripheral Pulses: 2+: dorsalis-pedis (R), dorsalis-pedis (L) Respiratory: inspiratory crackles (crackles at bases, with some mild wheezing on expiration) Gastrointestinal: normoactive bowel sounds, soft, non-tender abdomen, no palpable masses Genitourinary: no bladder fullness, no bladder tenderness Skin: warm, normal color, no rashes or abrasions, no fluctuance, no induration, No mottled Musculoskeletal: full muscle strength, no muscle tenderness, normal joint ROM, no joint effusions Neurologic: AAOx3, CN II-XII Intact Psychiatric: interacting appropriately, not anxious, not encephalopathic, thought process linear Lymph, Heme, Immunologic: no cervical LAD, no supraclavicular LAD Lab Data & Imaging Review 02/18/18 09:24 02/18/18 09:24 WBC 9.40 10^3/uL (3.80-9.50) 02/18/18 09:24 RBC 4.49 10^6/uL (4.18-5.33) 02/18/18 09:24 Hgb 12.8 g/dL (12.6-16.3) 02/18/18 09:24 Hct 39.9 % (38.0-47.0) 02/18/18 09:24 MCV 88.9 fL (81.5-99.8) 02/18/18 09:24 MCH 28.5 pg (27.9-34.1) 02/18/18 09:24 MCHC 32.1 g/dL (32.4-36.7) L 02/18/18 09:24 RDW 12.9 % (11.5-15.2) 02/18/18 09:24 Plt Count 190 10^3/uL (150-400) 02/18/18 09:24 MPV 9.6 fL (8.7-11.7) 02/18/18 09:24 Neut % (Auto) 76.5 % (39.3-74.2) H 02/18/18 09:24 Lymph % (Auto) 15.2 % (15.0-45.0) 02/18/18 09:24 Shackelford % (Auto) 7.7 % (4.5-13.0) 02/18/18 09:24 Eos % (Auto) 0.0 % (0.6-7.6) L 02/18/18 09:24 Baso % (Auto) 0.3 % (0.3-1.7) 02/18/18 09:24 Nucleat RBC Rel Count 0.0 % (0.0-0.2) 02/18/18 09:24 Absolute Neuts (auto) 7.19 10^3/uL (1.70-6.50) H 02/18/18 09:24 Absolute Lymphs (auto) 1.43 10^3/uL (1.00-3.00) 02/18/18 09:24 Absolute Monos (auto) 0.72 10^3/uL (0.30-0.80) 02/18/18 09:24 Absolute Eos (auto) 0.00 10^3/uL (0.03-0.40) L 02/18/18 09:24 Absolute Basos (auto) 0.03 10^3/uL (0.02-0.10) 02/18/18 09:24 Absolute Nucleated RBC 0.00 10^3/uL (0-0.01) 02/18/18 09:24 Immature Gran % 0.3 % (0.0-1.1) 02/18/18 09:24 Immature Gran # 0.03 10^3/uL (0.00-0.10) 02/18/18 09:24 VBG Lactic Acid 1.6 mmol/L (0.7-2.1) 02/18/18 09:41 Sodium 139 mEq/L (135-145) 02/18/18 09:24 Potassium 3.7 mEq/L (3.5-5.2) 02/18/18 09:24 Chloride 98 mEq/L (97-110) 02/18/18 09:24 Carbon Dioxide 30 mEq/l (22-31) 02/18/18 09:24 Anion Gap 11 mEq/L (6-14) 02/18/18 09:24 BUN 11 mg/dL (7-23) 02/18/18 09:24 Creatinine 0.6 mg/dL (0.6-1.0) 02/18/18 09:24 Estimated GFR > 60 02/18/18 09:24 Glucose 259 mg/dL (70-100) H 02/18/18 09:24 Calcium 8.5 mg/dL (8.5-10.4) 02/18/18 09:24 Procalcitonin 0.17 ng/mL (0.02-0.10) H 02/18/18 09:08 Nasal Influenza A PCR FLU A DETECTED (NEGATIVE) H 02/18/18 09:16 Nasal Influenza B PCR NEGATIVE FOR FLU B (NEGATIVE) 02/18/18 09:16 Visualized and Interpreted Chest x-ray results: Yes Chest X-Ray results: infiltrate Assessment & Plan Assessment: 63 year old female with IDDM, HTN, HLD, COPD on 4 liters, here with flu and likely bacterial PNA. PNA- has elevated procalcitonin, and infiltrate on imaging. Flu swab positive. not meeting sepsis criteria. no leukocytosis. exam with wheezes and crackles at bases. vitals stable. 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 On an inhaler but could not remember which one. On her baseline of 4 liters of oxygen. She still has good air movement, and only minimal wheezes. -Treat PNA as above -duonebs Q6 -albuterol Nebs Q2 PRN -oxygen titrated to 88-92% Influenza- flu swab positive. Started on tamiflu to complete 5 day course IDDM- takes very large doses of Humulin, and levemir 20AM, 22HS. Hold humulin and cover with high dose sliding scale lispro. HTN- on atenolol. continue here. HLD- fine to cont statin PPX- SCDs, Lovenox fluids- IVNS Lytes- WNL Nutrition- diabetic diet Cor- Full Dispo- observation for pneumonia and flu
[2018-02-18] MEDS: INSULIN LISPRO 100 UNIT/ML SC SCH ×2 (14:31→17:45)
[2018-02-18] MEDS: IPRATROPIUM/ALBUTEROL 3 ML DEYVIAL IH SCH ×3 (14:31→21:00)
--- NOTE | 2018-02-18 14:42 | CPEKG ---
Test Reason : OPEN Blood Pressure : / mmHG Vent. Rate : 101 BPM Atrial Rate : 101 BPM P-R Int : 136 ms QRS Dur : 084 ms QT Int : 362 ms P-R-T Axes : 057 075 054 degrees QTc Int : 470 ms Sinus tachycardia Borderline ST depression, diffuse leads Confirmed by Lidia Duncan ([id number]) on 02/18/2018 2:42:06 PM Referred By: Confirmed By:Lidia Duncan
[2018-02-18] MEDS ORDERED: INSULIN GLARGINE 100 UNITS/ML UNIT SC ONE (20:38)
[2018-02-18] MEDS ORDERED: INSULIN REGULAR HUMAN 100 UNIT/ML UNIT SC ONE (20:38)
[2018-02-18] MEDS: INSULIN GLARGINE 100 UNITS/ML UNIT SC SCH (21:21)
[2018-02-19] MEDS ORDERED: MELATONIN 3 MG TAB PO PRN (00:58)
[2018-02-19] MEDS ORDERED: diphenhydrAMINE 25 MG CAP PO PRN (00:58)
[2018-02-19] MEDS: IPRATROPIUM/ALBUTEROL 3 ML DEYVIAL IH SCH ×4 (05:03→19:35)
[2018-02-19 05:54] LABS: PLATELET COUNT 172 10^3/uL (150-400)
[2018-02-19] MEDS: INSULIN LISPRO 100 UNIT/ML SC SCH ×3 (08:50→17:36)
[2018-02-19] MEDS: ENOXAPARIN 40 MG/0.4 ML SYR SC SCH ×2 (08:51→21:25)
[2018-02-19] MEDS: INSULIN GLARGINE 100 UNITS/ML UNIT SC SCH ×2 (08:51→21:27)
[2018-02-19] MEDS: LISINOPRIL 20 MG TAB PO SCH (08:52)
[2018-02-19] MEDS: SERTRALINE HCL 100 MG TAB PO SCH (08:52)
[2018-02-19] MEDS: ASPIRIN 81 MG CHEWABLE TAB PO SCH (08:52)
[2018-02-19] MEDS: MONTELUKAST SODIUM 10 MG TAB PO SCH (08:52)
[2018-02-19] MEDS: OSELTAMIVIR PHOSPHATE 75 MG CAP PO SCH ×2 (08:52→21:24)
[2018-02-19] MEDS: ATENOLOL 25 MG TAB PO SCH (08:52)
[2018-02-19] MEDS: ROSUVASTATIN CALCIUM 20 MG TAB PO SCH (08:52)
[2018-02-19] MEDS ORDERED: AZITHROMYCIN IV 500 MG in NS 250 ML IV SCH (09:00)
[2018-02-19] MEDS ORDERED: BISACODYL 10 MG SUPP PR PRN (09:48)
[2018-02-19] MEDS ORDERED: LACTULOSE 20 GM/30 ML UDCUP PO PRN (09:48)
[2018-02-19] MEDS ORDERED: POLYETHYLENE GLYCOL 3350 17 GM PKT PO PRN (09:48)
[2018-02-19] MEDS ORDERED: MAGNESIUM HYDROXIDE 30 ML UDCUP PO PRN (09:48)
--- NOTE | 2018-02-19 09:57 | HOSPPROG ---
Hospitalist Progress Note Assessment/Plan: 63 year old female with IDDM, HTN, HLD, COPD on 4 liters, here with flu and likely bacterial PNA. PNA- has elevated procalcitonin, and infiltrate on imaging. Flu swab positive. Has crackles in left base and mid lung. still requiring 4 liters at rest and extremely hypoxic with any exertion. 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 On an inhaler but could not remember which one. On her baseline of 4 liters of oxygen. She still has good air movement, and only minimal wheezes. -Treat PNA as above -duonebs Q6 -albuterol Nebs Q2 PRN -oxygen titrated to 88-92% Influenza- flu swab positive. Started on tamiflu to complete 5 day course IDDM- takes very large doses of Humulin, and levemir 20AM, 22HS. Discussed in more detail her insulin dosage today. She is taking 120 humulin HS and 80am. However, she says that almost every morning she is hypoglycemic to 60 or lower. She does not remember what her last A1c is. she was hyperglycemic to 500 last night, but it turns out she never took her levemir yesterday. I will decrease her humulin dose, start with 40 AC HS along with lantus 20 BID, and then add standard sliding scale on top. A1c pending. May still require substantial adjustments but would prefer elevated BG over hypoglycemic episodes. HTN- on atenolol. continue here. HLD- fine to cont statin PPX- SCDs, Lovenox fluids- IVNS Lytes- WNL Nutrition- diabetic diet Cor- Full Dispo- she is still too hypoxic with any ambulation and not safe for discharge. will change to inpatient. Also with severe hyperglycemia and labile BG. Subjective: still very weak. very short of breath with movement and any walking Objective: Vital Signs Temp Pulse Resp BP Pulse Ox 36.6 C 84 20 132/77 H 97 02/19/18 08:00 02/19/18 08:00 02/19/18 08:00 02/19/18 08:00 02/19/18 08:00 Laboratory Results 02/19/18 05:20 12/16/18 05:20 02/18/18 02/19/18 02/20/18 05:59 05:59 05:59 Intake Total 1750 Balance 1750 - Physical Exam Constitutional: no apparent distress, appears nourished, not in pain Eyes: PERRL, anicteric sclera, EOMI Ears, Nose, Mouth, Throat: moist mucous membranes, hearing normal, ears appear normal, no oral mucosal ulcers Cardiovascular: regular rate and rhythym, no murmur, rub, or gallop Respiratory: inspiratory crackles, other (crackles in left mid lung and left base. some mild wheezes) Gastrointestinal: normoactive bowel sounds, soft, non-tender abdomen, no palpable masses Genitourinary: no bladder fullness, no bladder tenderness, no renal bruits Skin: no rashes or abrasions, no fluctuance, no induration Musculoskeletal: full muscle strength, no muscle tenderness, normal joint ROM Neurologic: AAOx3, sensation intact bilaterally Psychiatric: interacting appropriately, not anxious, not encephalopathic, thought process linear Lymph, Heme, Immunologic: no cervical LAD, no supraclavicular LAD ICD10 Worksheet Patient Problems: Problems Problem Status Onset Influenza A Acute Pneumonia Acute Abdominal pain Acute Acute pancreatitis Acute Appendicitis, acute Acute COPD exacerbation Acute Chronic obstructive pulmonary disease with acute exacerbation Acute Guaiac positive stools Acute Hyperglycemia due to type 2 diabetes mellitus Acute Pulmonary hypertension Acute
[2018-02-19] MEDS ORDERED: INSULIN LISPRO 100 UNIT/ML SC SCH (12:00)
[2018-02-19] MEDS: INSULIN REGULAR HUMAN 100 UNIT/ML UNIT SC SCH ×3 (12:55→21:25)
--- NOTE | 2018-02-19 14:37 | PDMN ---
Medical Necessity Medical necessity: Pt meets INPT criteria per MD as of 02/19/18 and MCG M-282 Pneumonia (est. LOS >2 MN for pneumonia requiring 4L O2 at rest, IVABx; influenza; comorbid COPD, IDDM, htn).
[2018-02-19] MEDS ORDERED: FUROSEMIDE 20 MG/2 ML VIAL IVP ONE (20:32)
--- NOTE | 2018-02-19 20:42 | HOSPPROG ---
Hospitalist Progress Note Assessment/Plan: CTSP urgently due to increased respiratory distress. Although oxygen needs have not increased, she had acute worsening respiratory status, sitting as side of bed gasping for air, audible wheezing. RR > 20 When I go to bedside, patient curled in ball in bed. Just sitting up to position herself so I may listen to her lungs caused severe respiratory difficulty, severe audible wheezing. Lungs : very tight, wheezing throughout. Patient denies CP. Very hoarse voice, can barely talk due to this and respiratory difficulty. CXR ordered STAT - my interpretation is - bilateral infiltrates - CHF vs. influenza, some focal infiltrate A/P: * Acute respiratory failure - although O2 needs have not gone up, she has acute worsening status with severe respiratory distress. I suspect COPD exacerbation triggered by her influenza. Already on scheduled nebs Q6. Will add IV steroids, first dose now. Low threshold to transfer to SDU, but will see how she does after initial treatment. Much less likely cardiac in origin - will check trop, BNP now. IV Lasix 20mg x 1 * Influenza -on Tamifu * Superimposed bacterial PNA -IV ceftriaxone + Azithro CC time - 35 minutes Subjective: Severe SOB started around shift change Objective: Vital Signs Temp Pulse Resp BP Pulse Ox 37.7 C 98 20 156/89 H 90 L 02/19/18 19:46 02/19/18 19:46 02/19/18 19:46 02/19/18 19:46 02/19/18 19:46 02/18/18 02/19/18 02/20/18 05:59 05:59 05:59 Intake Total 1500 Balance 1500 - Physical Exam Constitutional: obese, uncomfortable, No no apparent distress Cardiovascular: regular rate and rhythym, No systolic murmur, No edema Respiratory: reduced air movement, expiratory wheeze, respiratory distress, rhonchi Gastrointestinal: normoactive bowel sounds, soft, non-tender abdomen, no palpable masses Skin: no rashes or abrasions, no fluctuance, no induration Neurologic: AAOx3, sensation intact bilaterally Psychiatric: interacting appropriately, not anxious, not encephalopathic, thought process linear ICD10 Worksheet Patient Problems: Problems Problem Status Onset Appendicitis, acute Acute Chronic obstructive pulmonary disease with acute exacerbation Acute Pulmonary hypertension Acute Hyperglycemia due to type 2 diabetes mellitus Acute COPD exacerbation Acute Pneumonia Acute Acute pancreatitis Acute Abdominal pain Acute Guaiac positive stools Acute Influenza A Acute
[2018-02-19] MEDS: SENNOSIDES/DOCUSATE SODIUM TAB PO SCH (21:24)
[2018-02-19] MEDS: methylPREDNISolone SOD SUCC 125 MG/2 ML VIAL IVP SCH (21:25)
[2018-02-20] MEDS: methylPREDNISolone SOD SUCC 125 MG/2 ML VIAL IVP SCH ×4 (03:11→20:45)
[2018-02-20] MEDS: IPRATROPIUM/ALBUTEROL 3 ML DEYVIAL IH SCH ×4 (05:07→20:23)
[2018-02-20 05:25] LABS: PLATELET COUNT 182 10^3/uL (150-400)
[2018-02-20] MEDS: INSULIN REGULAR HUMAN 100 UNIT/ML UNIT SC SCH ×4 (08:45→20:46)
[2018-02-20] MEDS: INSULIN GLARGINE 100 UNITS/ML UNIT SC SCH ×2 (08:46→20:51)
[2018-02-20] MEDS: INSULIN LISPRO 100 UNIT/ML SC SCH ×3 (08:46→18:04)
[2018-02-20] MEDS: ENOXAPARIN 40 MG/0.4 ML SYR SC SCH ×2 (08:48→20:46)
[2018-02-20] MEDS: OSELTAMIVIR PHOSPHATE 75 MG CAP PO SCH ×2 (08:51→20:45)
[2018-02-20] MEDS: ASPIRIN 81 MG CHEWABLE TAB PO SCH (08:51)
[2018-02-20] MEDS: ROSUVASTATIN CALCIUM 20 MG TAB PO SCH (08:51)
[2018-02-20] MEDS: ATENOLOL 25 MG TAB PO SCH (08:51)
[2018-02-20] MEDS: LISINOPRIL 20 MG TAB PO SCH (08:51)
[2018-02-20] MEDS: MONTELUKAST SODIUM 10 MG TAB PO SCH (08:51)
[2018-02-20] MEDS: SENNOSIDES/DOCUSATE SODIUM TAB PO SCH ×2 (08:57→20:45)
[2018-02-20] MEDS: SERTRALINE HCL 100 MG TAB PO SCH (08:57)
[2018-02-20] MEDS: AZITHROMYCIN IV 500 MG in D5W 250 ML IV SCH (08:57)
--- NOTE | 2018-02-20 13:00 | HOSPPROG ---
Hospitalist Progress Note Assessment/Plan: 63 year old female with IDDM, HTN, HLD, COPD on 4 liters, here with flu and likely bacterial PNA. PNA- has elevated procalcitonin, and infiltrate on imaging. Flu swab positive. Has crackles in left base and mid lung. still requiring 4 liters at rest and extremely hypoxic with any exertion. 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 On an inhaler but could not remember which one. On her baseline of 4 liters of oxygen. She still has good air movement, and only minimal wheezes. Treat PNA as above duonebs Q6 albuterol Nebs Q2 PRN 0xygen titrated to 88-92% Influenza- flu swab positive. Started on tamiflu to complete 5 day course IDDM- takes very large doses of Humulin, and levemir 20AM, 22HS. Discussed in more detail her insulin dosage today. She is taking 120 humulin HS and 80am. However, she says that almost every morning she is hypoglycemic to 60 or lower. She does not remember what her last A1c is. she was hyperglycemic to 500 last night, but it turns out she never took her levemir yesterday. I will decrease her humulin dose, start with 40 AC HS along with lantus 20 BID, and then add standard sliding scale on top. A1c pending. May still require substantial adjustments but would prefer elevated BG over hypoglycemic episodes. HTN- on atenolol. continue here. HLD- fine to cont statin PPX- SCDs, Lovenox fluids- IVNS Lytes- WNL Nutrition- diabetic diet Cor- Full Dispo- she is still too hypoxic with any ambulation and not safe for discharge. will change to inpatient. Also with severe hyperglycemia and labile BG. Subjective: received lasix last pradeep. cxr w b/l air space disease, R>L (interp by me). feels better today Objective: Vital Signs Temp Pulse Resp BP Pulse Ox 36.7 C 79 22 H 142/81 H 93 02/20/18 11:36 02/20/18 11:36 02/20/18 11:36 02/20/18 11:36 02/20/18 11:36 Laboratory Results 02/20/18 05:08 02/20/18 05:08 02/19/18 02/20/18 02/21/18 05:59 05:59 05:59 Intake Total 2200 350 Output Total 1200 Balance 1000 350 - Physical Exam Constitutional: no apparent distress, appears nourished Eyes: PERRL, anicteric sclera Ears, Nose, Mouth, Throat: moist mucous membranes, hearing normal Cardiovascular: regular rate and rhythym, no murmur, rub, or gallop Respiratory: other (crackles on L side, good air movement, no wheeze) Gastrointestinal: normoactive bowel sounds, soft, non-tender abdomen Genitourinary: no bladder fullness, No mercedes in urethra Skin: warm, normal color Musculoskeletal: full muscle strength Neurologic: AAOx3 ICD10 Worksheet Patient Problems: Problems Problem Status Onset Influenza A Acute Pneumonia Acute Abdominal pain Acute Acute pancreatitis Acute Appendicitis, acute Acute COPD exacerbation Acute Chronic obstructive pulmonary disease with acute exacerbation Acute Guaiac positive stools Acute Hyperglycemia due to type 2 diabetes mellitus Acute Pulmonary hypertension Acute
--- NOTE | 2018-02-20 14:22 | ASMTCMCOM ---
CM Note CM Note Notes: Chart Review: Patient is a 63 year old female presented to [facility] ED with vomiting, fever, shortness of breath, and cough. Patient has history of IDDM, HTN, COPD, Chronic O2 @ 4L, and depression. Patient is mostly [place] Speaking. Patient admitted for pneumonia flu, and IDDM treatment. CM spoke with Heather BENNETT, patient will likely discharge tomorrow or Tuesday, would like support in ensuring follow up is scheduled prior to discharge. No needs identified by PT. CM to follow. Plan: TBD, likely independent. Date Signed: 02/19/2018 04:04 PM Electronically Signed By:Sailaja Galarza
--- NOTE | 2018-02-20 14:22 | ASMTLACE ---
BOUBACAR Acuity / Level of Answers: Yes Care: Did the patient have an inpatient admission? Comorbidities - select Answers: Chronic pulmonary disease all that apply Diabetes (uncontrolled or controlled) Other Notes: HTN; HLD # of Emergency department Answers: 3-4 visits in the last 6 months Social determinants Answers: Mental health diagnosis (anxiety, depression, pers onality disorders, etc.) Score: 13 Date Signed: 02/19/2018 06:28 PM Electronically Signed By:Savannah Morales
[2018-02-21] MEDS: methylPREDNISolone SOD SUCC 125 MG/2 ML VIAL IVP SCH ×2 (03:14→08:02)
[2018-02-21] MEDS: IPRATROPIUM/ALBUTEROL 3 ML DEYVIAL IH SCH ×4 (05:39→20:28)
[2018-02-21] MEDS: INSULIN GLARGINE 100 UNITS/ML UNIT SC SCH ×2 (08:10→21:21)
[2018-02-21] MEDS: INSULIN REGULAR HUMAN 100 UNIT/ML UNIT SC SCH ×4 (08:10→21:20)
[2018-02-21] MEDS: MONTELUKAST SODIUM 10 MG TAB PO SCH (08:11)
[2018-02-21] MEDS: ENOXAPARIN 40 MG/0.4 ML SYR SC SCH (08:11)
[2018-02-21] MEDS: ROSUVASTATIN CALCIUM 20 MG TAB PO SCH (08:11)
[2018-02-21] MEDS: SENNOSIDES/DOCUSATE SODIUM TAB PO SCH ×2 (08:11→21:19)
[2018-02-21] MEDS: OSELTAMIVIR PHOSPHATE 75 MG CAP PO SCH ×2 (08:12→21:20)
[2018-02-21] MEDS: SERTRALINE HCL 100 MG TAB PO SCH (08:12)
[2018-02-21] MEDS: ASPIRIN 81 MG CHEWABLE TAB PO SCH (08:12)
[2018-02-21] MEDS: ATENOLOL 25 MG TAB PO SCH (08:12)
[2018-02-21] MEDS: LISINOPRIL 20 MG TAB PO SCH (08:12)
[2018-02-21] MEDS: INSULIN LISPRO 100 UNIT/ML SC SCH ×3 (08:20→17:30)
[2018-02-21] MEDS: AZITHROMYCIN IV 500 MG in D5W 250 ML IV SCH (08:52)
[2018-02-21] MEDS ORDERED: FUROSEMIDE 20 MG TAB PO ONE (11:05)
--- NOTE | 2018-02-21 11:09 | HOSPPROG ---
Hospitalist Progress Note Assessment/Plan: 63 year old female with IDDM, HTN, HLD, COPD on 4 liters, here with flu and likely bacterial PNA. PNA- has elevated procalcitonin, and infiltrate on imaging. Flu swab positive. Has crackles in left base and mid lung. still requiring 4 liters at rest and extremely hypoxic with any exertion. 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 On an inhaler but could not remember which one. On her baseline of 4 liters of oxygen. She still has good air movement, and only minimal wheezes. Treat PNA as above duonebs Q6 albuterol Nebs Q2 PRN 0xygen titrated to 88-92% decrease steroids to po pred Influenza- flu swab positive. Started on tamiflu to complete 5 day course IDDM- takes very large doses of Humulin, and levemir 20AM, 22HS. Discussed in more detail her insulin dosage today. She is taking 120 humulin HS and 80am. However, she says that almost every morning she is hypoglycemic to 60 or lower. She does not remember what her last A1c is. she was hyperglycemic to 500 last night, but it turns out she never took her levemir yesterday. I will decrease her humulin dose, start with 40 AC HS along with lantus 20 BID, and then add standard sliding scale on top. A1c pending. May still require substantial adjustments but would prefer elevated BG over hypoglycemic episodes. HTN- on atenolol. continue here. HLD- fine to cont statin PPX- SCDs, Lovenox fluids- IVNS Lytes- WNL Nutrition- diabetic diet Cor- Full Dispo- she is still too hypoxic with any ambulation and not safe for discharge. will change to inpatient. Also with severe hyperglycemia and labile BG. Subjective: feels better this AM. decreasing 02 requirements Objective: Vital Signs Temp Pulse Resp BP Pulse Ox 37.2 C 75 18 164/104 H 94 02/21/18 07:51 02/21/18 10:22 02/21/18 10:22 12/18/18 08:12 02/21/18 10:22 Laboratory Results 02/20/18 05:08 02/20/18 05:08 02/20/18 02/21/18 02/22/18 05:59 05:59 05:59 Intake Total 2200 1494 Output Total 1200 Balance 1000 1494 - Physical Exam Constitutional: no apparent distress, appears nourished Eyes: PERRL, anicteric sclera Ears, Nose, Mouth, Throat: moist mucous membranes, hearing normal Cardiovascular: regular rate and rhythym, no murmur, rub, or gallop Respiratory: no respiratory distress, other (crackles on L) Gastrointestinal: normoactive bowel sounds, soft, non-tender abdomen Genitourinary: no bladder fullness, No mercedes in urethra Skin: warm, normal color Musculoskeletal: no muscle tenderness ICD10 Worksheet Patient Problems: Problems Problem Status Onset Influenza A Acute Pneumonia Acute Abdominal pain Acute Acute pancreatitis Acute Appendicitis, acute Acute COPD exacerbation Acute Chronic obstructive pulmonary disease with acute exacerbation Acute Guaiac positive stools Acute Hyperglycemia due to type 2 diabetes mellitus Acute Pulmonary hypertension Acute
[2018-02-22] MEDS: IPRATROPIUM/ALBUTEROL 3 ML DEYVIAL IH SCH ×2 (05:45→12:09)
[2018-02-22] MEDS: ATENOLOL 25 MG TAB PO SCH (07:53)
[2018-02-22] MEDS: LISINOPRIL 20 MG TAB PO SCH (07:53)
[2018-02-22] MEDS: ROSUVASTATIN CALCIUM 20 MG TAB PO SCH (07:59)
[2018-02-22] MEDS: OSELTAMIVIR PHOSPHATE 75 MG CAP PO SCH (08:01)
[2018-02-22] MEDS: ASPIRIN 81 MG CHEWABLE TAB PO SCH (08:01)
[2018-02-22] MEDS: MONTELUKAST SODIUM 10 MG TAB PO SCH (08:01)
[2018-02-22] MEDS: SERTRALINE HCL 100 MG TAB PO SCH (08:02)
[2018-02-22] MEDS: SENNOSIDES/DOCUSATE SODIUM TAB PO SCH (08:18)
[2018-02-22] MEDS ORDERED: ENOXAPARIN 40 MG/0.4 ML SYR SC SCH (09:00)
[2018-02-22] MEDS ORDERED: predniSONE 20 MG TAB PO SCH (09:00)
[2018-02-22] MEDS: AZITHROMYCIN IV 500 MG in D5W 250 ML IV SCH (09:16)
[2018-02-22] MEDS: INSULIN GLARGINE 100 UNITS/ML UNIT SC SCH (09:46)
[2018-02-22] MEDS: INSULIN LISPRO 100 UNIT/ML SC SCH ×2 (11:03→13:07)
[2018-02-22] MEDS: INSULIN REGULAR HUMAN 100 UNIT/ML UNIT SC SCH ×2 (11:03→14:39)
[2018-02-22 11:55] VITALS: BP 153/82
[2018-02-22] MEDS ORDERED: INSULIN LISPRO 100 UNIT/ML SC ONE (13:12)
--- NOTE | 2018-02-22 13:53 | HOSPPROG ---
Hospitalist Progress Note Assessment/Plan: 63 year old female with IDDM, HTN, HLD, COPD on 4 liters, here with flu and likely bacterial PNA. PNA- has elevated procalcitonin, and infiltrate on imaging. Flu swab positive. Has crackles in left base and mid lung. still requiring 4 liters at rest and extremely hypoxic with any exertion. 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 On an inhaler but could not remember which one. On her baseline of 4 liters of oxygen. She still has good air movement, and only minimal wheezes. Treat PNA as above duonebs Q6 albuterol Nebs Q2 PRN 0xygen titrated to 88-92% decrease steroids to po pred Influenza- flu swab positive. Started on tamiflu to complete 5 day course IDDM- takes very large doses of Humulin, and levemir 20AM, 22HS. Discussed in more detail her insulin dosage today. She is taking 120 humulin HS and 80am. However, she says that almost every morning she is hypoglycemic to 60 or lower. She does not remember what her last A1c is. she was hyperglycemic to 500 last night, but it turns out she never took her levemir yesterday. I will decrease her humulin dose, start with 40 AC HS along with lantus 20 BID, and then add standard sliding scale on top. A1c pending. May still require substantial adjustments but would prefer elevated BG over hypoglycemic episodes. HTN- on atenolol. continue here. HLD- fine to cont statin PPX- SCDs, Lovenox fluids- IVNS Lytes- WNL Nutrition- diabetic diet Cor- Full Dispo- home today > 30 minutes on dc Subjective: ready for dc. 02 requirement at baseline Objective: Vital Signs Temp Pulse Resp BP Pulse Ox 36.8 C 65 20 153/82 H 99 02/22/18 11:52 02/22/18 12:10 02/22/18 12:10 02/22/18 11:52 02/22/18 12:10 Laboratory Results 02/20/18 05:08 02/21/18 11:27 02/21/18 02/22/18 02/23/18 05:59 05:59 05:59 Intake Total 1494 550 Balance 1494 550 - Physical Exam Constitutional: no apparent distress, appears nourished Eyes: PERRL, anicteric sclera Ears, Nose, Mouth, Throat: moist mucous membranes, hearing normal Cardiovascular: regular rate and rhythym, no murmur, rub, or gallop Respiratory: no respiratory distress Gastrointestinal: normoactive bowel sounds, soft, non-tender abdomen Genitourinary: no bladder fullness, No mercedes in urethra Skin: warm Musculoskeletal: full muscle strength Neurologic: AAOx3 Psychiatric: interacting appropriately ICD10 Worksheet Patient Problems: Problems Problem Status Onset Influenza A Acute Pneumonia Acute Abdominal pain Acute Acute pancreatitis Acute Appendicitis, acute Acute COPD exacerbation Acute Chronic obstructive pulmonary disease with acute exacerbation Acute Guaiac positive stools Acute Hyperglycemia due to type 2 diabetes mellitus Acute Pulmonary hypertension Acute
--- NOTE | 2018-02-22 15:00 | ASMTCMCOM ---
CM Note CM Note Notes: Spoke w/RN, pt needs Medicaid transportation arranged. CM called and scheduled a taxi for 3:30. CM also scheduled an appt at the [facility] tomorrow with MD Sullivan at 10:30. DC Plan: Independent Date Signed: 02/22/2018 03:00 PM Electronically Signed By:Rosey Funes RN
--- NOTE | 2018-02-22 15:45 | GDS ---
DISCHARGE DIAGNOSES: 1. Sepsis. 2. Influenza. 3. Community-acquired pneumonia. 4. Poorly controlled diabetes. 5. Chronic obstructive pulmonary disease. 6. Acute on chronic hypoxemic respiratory failure. Please see admission history and physical by Dr. Don Duckworth. The patient presented with shortness of breath, cough, myalgias, malaise, chest x-ray at that time sh owed possible infiltrate. A repeat chest x-ray a couple days ago showed new right lower lobe infiltr ate. She was treated with Tamiflu and ceftriaxone and azithromycin. She also received steroids. On the evening of the she had a bit of a decompensation that responded to Lasix. She had volume r esuscitation on presentation. She was markedly hyperglycemic in the setting of steroids, but when those were [facility] 82. She takes Levemir regular at home. She sees [facility]. I suspect that Lantus and lispro are cost prohibitive to her. Her A1c was 9.9, suggestive of poor but not disastrou s control. Certainly, adjusting her regimen was indicated but as I spoke to her with an crm solution architect, it was not clear that she had a significant enough understanding to make changes without followup. I did write her primary care physician a letter and gave it to the patient to give to her and had Travis enrique [facility] make her a followup appointment. Discharge prescriptions are Tamiflu 2 more doses, Augmentin 2 more days and albuterol. /[id number]/MODL
== END 2018-02-22 15:52 | disposition home or self-care (01) | DRG 720 ==
LOC: INTOOBSV 10:30 → F3E 13:57 → OBSVTOIN 02-19 14:17
PROVIDERS: ADMIT Internal Medicine; ATTEND Internal Medicine
DX: A41.9 Sepsis, unspecified organism (principal); J96.21 Acute and chronic respiratory failure with hypoxia; J11.08 Influenza due to unidentified influenza virus with specified pneumonia; E86.9 Volume depletion, unspecified; Z99.81 Dependence on supplemental oxygen; E11.9 Type 2 diabetes mellitus without complications; J44.9 Chronic obstructive pulmonary disease, unspecified; I10 Essential (primary) hypertension; E78.5 Hyperlipidemia, unspecified
CPT/HCPCS: 82947-QW; 96365; 97161-GP; 97165-GO; 97530-GO; 97535-GO; G0378; J0456; J0696; J1650; J1815; J1940; J2405; J2930; J7512

== ENCOUNTER 2018-03-09 07:42 | Day surgery (SDC) | payer MEDICAID ==
--- NOTE | 2018-03-09 09:02 | PDANEPAE ---
ANE Past Medical History - Cardiovascular History Hx Hypertension: Yes Hx Arrhythmias: No Hx Chest Pain: No Hx Coronary Artery / Peripheral Vascular Disease: No Hx CHF / Valvular Disease: No Hx Palpitations: No - Pulmonary History Hx COPD: Yes Hx Asthma/Reactive Airway Disease: No Hx Recent Upper Respiratory Infection: No Hx Oxygen in Use at Home: Yes O2 in Use at Home (L/minute): 3l at rest, 4l with activity Hx Sleep Apnea: Yes Sleep Apnea Screening Result - Last Documented: Positive Pulmonary History Comment: recent hospitalization 02/19-02/22/18 for PNA. 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 GIAN positive, uses CPap - Neurologic History Hx Cerebrovascular Accident: No Hx Seizures: No Hx Dementia: No - Endocrine History Hx Diabetes: Yes Endocrine History Comment: type 2 - Renal History Hx Renal Disorders: Yes Renal History Comment: hx of kidney stones - Liver History Hx Hepatic Disorders: No - Neurological & Psychiatric Hx Hx Neurological and Psychiatric Disorders: Yes Neurological / Psychiatric History Comment: depression - Cancer History Hx Cancer: No - Congenital Disorder History Hx Congenital Disorders: No - GI History Hx Gastrointestinal Disorders: Yes Gastrointestinal History Comment: hx of egd's and colonoscopies. GERD. abdominal pain w/eating. blood in stools - Other Health History Other Health History: glasses for reading. frequent nose bleeds. recently hospitalized 02/19-02/22/18 for flu A/ sepsis - Chronic Pain History Chronic Pain: No - Surgical History Prior Surgeries: 01/12/18 EGD/ Colonoscopy with Ion. 08/09/13 appendectomy w /partial cecectomywith Roney. ANE Review of Systems Review of Systems: - Exercise capacity METS (RN): 2 METS ANE Patient History - Allergies Allergies/Adverse Reactions: No Known Allergies Allergy (Verified 03/02/18 16:40) - Home Medications Home Medications: Hydrochlorothiazide [HCTZ (*)] 08/09/13 [Last Taken 03/08/18] Montelukast Sodium [Singulair 10 mg (*)] 08/09/13 [Last Taken 03/08/18] Sertraline HCl [Zoloft 100mg (*)] 08/09/13 [Last Taken 03/08/18] Aspirin [Aspirin 81mg (*)] 08/22/15 [Last Taken 03/08/18] Lisinopril [Zestril 20 mg (*)] 08/22/15 [Last Taken 03/08/18] Insulin Detemir [Levemir Flextouch] 22 units SQ HS 07/10/16 [Last Taken 03/08/18 ] Rosuvastatin Calcium [Crestor 20mg (*)] 12/02/16 [Last Taken 03/08/18] Atenolol [Tenormin 25 mg (*)] 01/09/18 [Last Taken 03/08/18] Insulin Regular, Human [Humulin R U-500 Kwikpen] 02/18/18 [Last Taken 03/08/18] Albuterol [Proventil Inhaler HFA (*)] Q4H PRN 03/02/18 [Last Taken Unknown] - NPO status NPO Since - Liquids (Date): 03/08/18 NPO Since - Liquids (Time): 23:30 NPO Since - Solids (Date): 03/08/18 - Smoking Hx Smoking Status: Never smoked - Family Anes Hx Family Hx Anesthesia Complications: none ANE Labs/Vital Signs - Vital Signs Blood Pressure: 121/69 Heart Rate: 78 Respiratory Rate: 14 O2 Sat (%): 96 Height: 162.56 cm Weight: 93.259 kg ANE Physical Exam - Airway Mallampati Score: Class 3 - ASA Status ASA Status: III ANE Anesthesia Plan Total IV Anesthesia: Yes
[2018-03-09] MEDS ORDERED: PROPOFOL/EMULSION 500 MG/50 ML BOTTLE IV ONE (09:08)
[2018-03-09] MEDS ORDERED: ONDANSETRON 4 MG/2 ML VIAL IVP PRN (09:34)
[2018-03-09] MEDS ORDERED: NALOXONE HCL 0.4 MG/ML INJ IVP PRN (09:34)
[2018-03-09] MEDS ORDERED: LR 500 ML IV PRN (09:34)
[2018-03-09] MEDS ORDERED: fentaNYL 100 MCG/2 ML INJ IVP PRN (09:34)
--- NOTE | 2018-03-09 09:35 | GIREPORT ---
[facility] Surgical Services - Endoscopy Department Patient Name: Leslee Cruz Procedure Date: 03/09/2018 8:52 AM Patient Type: Outpatient Attending MD/ ER Physician: Adelaide Lemon MD Procedure: Colonoscopy Indications: Generalized abdominal pain, Hematochezia Providers: Adelaide Lemon MD Medicines: See the Anesthesia note for documentation of the administered medicatio ns Complications: No immediate complications. Description of Procedure: After obtaining informed consent, the scope was passed under direct vis ion. Throughout the procedure, the patient's blood pressure, pulse, and oxyg en saturations were monitored continuously. The Colonoscope with irrigatio n channel was introduced through the anus and advanced to the cecum, identified by appendiceal orifice and ileocecal valve. The colonoscopy was performed without difficulty. The patient tolerated the procedure well. The quality of the bowel preparation was good. The ileocecal valve, appendi ceal orifice, and rectum were photographed. Findings: The entire examined colon appeared normal. Estimated Blood Loss: Estimated blood loss: none. Post Op Diagnosis: - The entire examined colon is normal. - No specimens collected. Recommendation: - Written discharge instructions were provided to the patient. - The signs and symptoms of potential delayed complications were discus sed with the patient. - Patient has a contact number available for emergencies. - Return to normal activities tomorrow. - Resume previous diet. - Continue present medications. - Repeat colonoscopy in 10 years for screening purposes. - Suspect intermittent bleeding from hemorrhoids. - No explanation for abdominal pain. Attending Participation: I personally performed the entire procedure. Adelaide Lemon MD Adelaide Lemon MD 03/09/2018 9:35:23 AM This report has been signed electronicallyAdelaide Lemon MD Number of Addenda: 0 Note Initiated On: 03/09/2018 8:52 AM Total Procedure Duration Time 0 hours 10 minutes 20 seconds [email or web address]
--- NOTE | 2018-03-09 09:36 | POSTANESTH ---
Post Anesthetic Evaluation Cardiovascular Status: Similar to Pre-Op Cond Respiratory Status: Similar to Pre-op Cond. Level of Consciousness/Mental Status: Can Participate in Eval Pain Control: Adequate, Prn Tx Ordered Nausea/Vomiting Control: Adequate, Prn Tx Ordered Complications Possibly Related to Anesthesia: None Noted
[2018-03-09 10:17] VITALS: BP 126/65
== END 2018-03-09 10:51 | disposition home or self-care (01) ==
LOC: FSGY 07:42
PROVIDERS: ATTEND Internal Medicine Gastroenterology
PROC: 0DJD8ZZ Inspection of Lower Intestinal Tract, Via Natural or Artificial Opening Endoscopic (ICD-10-PCS; principal; 2018-03-09 09:30)
DX: R10.9 Unspecified abdominal pain (principal); K92.1 Melena
CPT/HCPCS: J2704

== ENCOUNTER 2018-03-28 19:11 | Emergency (ER) | payer MEDICAID ==
[2018-03-28] MEDS ORDERED: NS 500 ML IV ONE (19:45)
[2018-03-28] MEDS ORDERED: ONDANSETRON 4 MG/2 ML VIAL IVP ONE (19:45)
--- NOTE | 2018-03-28 19:49 | EDPHY ---
H & P Stated Complaint: PEEING BLOOD, SIDE STOMACH PAIN X 3 DAYS Time Seen by Provider: 03/28/18 19:21 HPI/ROS: CHIEF COMPLAINT: Right flank pain, hematuria HISTORY OF PRESENT ILLNESS: 63-year-old female with diabetes, hypertension and oxygen-dependent COPD presents with right flank pain and hematuria. Onset of intermittent right flank pain 2 days ago. The pain is moderate to severe and waxes and wanes. Associated with gross hematuria and urinary hesitancy. No fever or vomiting. 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; Depression; Chronic Fatigue, CHRONIC O2 3 L - Social History Smoking Status: Never smoked - Physical Exam Exam: General Appearance: Alert, pleasant Eyes: Pupils equal and round, no conjunctival pallor ENT, Mouth: Mucous membranes moist Neck: Normal inspection Respiratory: Tachypnea, Lungs are clear to auscultation Cardiovascular: Regular rate and rhythm Gastrointestinal: Abdomen is soft, suprapubic tenderness Back: Bilateral paraspinous tenderness to light palpation Neurological: A&O, nonfocal exam Skin: Warm and dry Extremities: Normal inspection Psychiatric: Mood and affect normal Constitutional: Initial Vital Signs Temperature (C) 36.7 C 03/28/18 19:17 Heart Rate 75 03/28/18 19:17 Respiratory Rate 26 H 03/28/18 19:17 Blood Pressure 169/91 H 03/28/18 19:17 O2 Sat (%) 94 03/28/18 19:17 O2 Delivery Mode Nasal Cannula O2 (L/minute) 4 Allergies/Adverse Reactions: No Known Allergies Allergy (Verified 03/02/18 16:40) Home Medications: Medication Instructions Recorded Hydrochlorothiazide [HCTZ (*)] 08/09/13 Montelukast Sodium [Singulair 10 08/09/13 mg (*)] Sertraline HCl [Zoloft 100mg (*)] 08/09/13 Aspirin [Aspirin 81mg (*)] 08/22/15 Lisinopril [Zestril 20 mg (*)] 08/22/15 Insulin Detemir [Levemir Flextouch] 22 units SQ HS 07/10/16 Rosuvastatin Calcium [Crestor 20mg 12/02/16 (*)] Atenolol [Tenormin 25 mg (*)] 01/09/18 Insulin Regular, Human [Humulin R 02/18/18 U-500 Kwikpen] Albuterol [Proventil Inhaler HFA Q4H PRN 03/02/18 (*)] Cefdinir [Omnicef (*)] 300 mg PO BID #20 cap 03/28/18 Medical Decision Making - Diagnostics Imaging Results: Abdomen/Pelvis CT 03/28/18 19:46 Impression: 1. Negative for nephrolithiasis or obstructive uropathy 2. Findings compatible with hepatocellular disease similar to than January 2018 study.. 3. Diverticulosis without diverticulitis. 4. See above report for additional findings. Results called and discussed with JUAN MAURO M.D. on 03/28/2018 at 20:32. Attention: This CT examination is specifically designed to evaluate patients who are clinically suspected of having acute obstructive uropathy. This examination does not use radiographic contrast, and as such, provides only a limited evaluation of the abdomen, pelvis and retroperitoneum. If there is further clinical suspicion for pathological conditions other than obstructive uropathy, a complete CT evaluation of the abdomen and pelvis utilizing intravenous, oral, and rectal contrast should be considered. Imaging: Discussed imaging studies w/ manager call Radiologist ED Course/Re-evaluation: This patient presents with gross hematuria and right flank pain, concerning for renal colic. IV normal saline 500 mL, morphine and Zofran IV given. CT scan of the abdomen and pelvis ordered and reveals no evidence of ureteral calculus. Results discussed with the patient. Toradol 15 mg IV given. Urinalysis pending. IV normal saline 1 L given. UA c/w UTI. Urine cx sent and Rocephin IV given. Pt feels better after Morphine/Toradol. Will treat with Omnicef for pyelonephritis. Pt not ill appearing and tolerating orals fluids well. Appropriate pt for outpt treatment of pyelo. Elevated glucose noted, pt did not take usual pm insulin, will take once arrives home and eats dinner. Differential Diagnosis: Differential diagnosis includes though it is not limited to appendicitis, cholecystitis, diverticulitis, pyelonephritis, bowel perforation, small bowel obstruction. - Data Points Laboratory Results: Laboratory Results 03/28/18 20:00 03/28/18 20:00 03/28/18 21:02 Urine Color YELLOW Urine Appearance MODERATELY TURBID Urine pH 5.0 (5.0-7.5) Ur Specific [place] 1.019 (1.002-1.030) Urine Protein 2+ H (NEGATIVE) Urine Ketones NEGATIVE (NEGATIVE) Urine Blood 3+ H (NEGATIVE) Urine Nitrate NEGATIVE (NEGATIVE) Urine Bilirubin NEGATIVE (NEGATIVE) Urine Urobilinogen NEGATIVE EU EU (0.2-1.0) Ur Leukocyte Esterase 2+ H (NEGATIVE) Urine RBC 50-182 /hpf H /hpf (0-3) Urine WBC 50-182 /hpf H /hpf (0-3) Ur Epithelial Cells TRACE /lpf /lpf (NONE-1+) Urine Bacteria 1+ /hpf H /hpf (NONE SEEN) Urine Mucus TRACE /lpf /lpf (NONE-1+) Urine Glucose 2+ H (NEGATIVE) Medications Given: Discontinued Medications Hydrocodone Bitart/Acetaminophen ([place] 5/325mg Prepack#6) 1 btl TAKEHOME EDNOW ONE Stop: 03/28/18 22:24 Last Admin: 03/28/18 22:51 Dose: 1 btl Sodium Chloride (Ns) 500 mls @ 1,000 mls/hr IV EDNOW ONE PRN Reason: Protocol Stop: 03/28/18 20:14 Last Admin: 03/28/18 20:00 Dose: 500 mls Sodium Chloride (Ns) 1,000 mls @ 0 mls/hr IV ONCE ONE; Wide Open PRN Reason: Protocol Stop: 03/28/18 20:29 Last Admin: 03/28/18 20:38 Dose: 1,000 mls Ceftriaxone Sodium/Dextrose (Rocephin 1 Gm (Premix)) 50 mls @ 100 mls/hr IV EDNOW ONE PRN Reason: Protocol Stop: 03/28/18 22:50 Last Admin: 03/28/18 22:30 Dose: 50 mls Ketorolac Tromethamine (Toradol) 15 mg IVP EDNOW ONE Stop: 03/28/18 20:41 Last Admin: 03/28/18 21:00 Dose: 15 mg Morphine Sulfate (Morphine) 4 mg IVP EDNOW ONE Stop: 03/28/18 19:46 Last Admin: 03/28/18 20:00 Dose: 4 mg Ondansetron HCl (Zofran) 4 mg IVP EDNOW ONE Stop: 03/28/18 19:46 Last Admin: 03/28/18 20:00 Dose: 4 mg Ondansetron HCl (Zofran Odt 4 Mg Prepack#2) 1 btl TAKEHOME EDNOW ONE Stop: 03/28/18 22:24 Last Admin: 03/28/18 22:50 Dose: 1 btl Departure - Departure Disposition: Home, Routine, Self-Care Clinical Impression: Acute pyelonephritis Condition: Good Instructions: Hydrocodone/Acetaminophen (By mouth), Ondansetron (By mouth), Kidney Infection (ED) Additional Instructions: Take antibiotics as prescribed. Ibuprofen 600 mg 3 times daily while the pain persists. Call in 2 days for urine culture results. Return for worsening symptoms, including vomiting, increasing pain or fever. 1. [place] antibioticos a dannielle se le jeronimo recetado. 2. Ibuprofen 600 mg 3 x al korey mientras persista el dolor. 3. Llame en dos zepeda para los resultdos de orina. 4. Regrese si los sintomas empeoran, incluyendo vomito, si incrementa el dolor o fiebre. Referrals: Tawanna Sullivan MD [Primary Care Provider] - As per Instructions Prescriptions: Cefdinir [Omnicef (*)] 300 mg PO BID #20 cap
[2018-03-28 20:13] LABS: PLATELET COUNT 210 10^3/uL (150-400)
[2018-03-28] MEDS ORDERED: NS 1,000 ML IV ONE (20:28)
[2018-03-28] MEDS ORDERED: KETOROLAC 15 MG/1 ML SDV IVP ONE (20:40)
[2018-03-28] MEDS ORDERED: HYDROCOD/APAP 5/325 PREPACK#6 BTL TAKEHOME ONE (22:23)
[2018-03-28] MEDS ORDERED: ONDANSETRON 4MG PREPACK#2 BTL TAKEHOME ONE (22:23)
[2018-03-28 22:32] VITALS: BP 133/76
== END 2018-03-28 23:01 | disposition home or self-care (01) ==
DX: N10 Acute pyelonephritis (principal); I10 Essential (primary) hypertension; E11.9 Type 2 diabetes mellitus without complications; E86.9 Volume depletion, unspecified; Z99.81 Dependence on supplemental oxygen; Z79.4 Long term (current) use of insulin
CPT/HCPCS: 96374; J0696; J1885; J2270; J2405

== ENCOUNTER 2018-07-01 16:07 | Inpatient (IN) | payer MEDICAID ==
--- NOTE | 2018-07-01 16:50 | EDPHY ---
H & P Stated Complaint: SOB x 4 days, cough prod green Time Seen by Provider: 07/01/18 16:49 - Personal History Tetanus Vaccine Date: <10 years - Medical/Surgical History Hx Asthma: Yes Hx Chronic Respiratory Disease: Yes Hx Diabetes: Yes Hx Cardiac Disease: Yes Hx Renal Disease: No Hx Cirrhosis: No Hx Alcoholism: No Hx HIV/AIDS: No Hx Splenectomy or Spleen Trauma: No Other PMH: kidney stones with surg, Appy;HTN;COPD-home O2/CPAP;IDDM;HTN; hyperlipidemia, ?CHF; TB as a child; Depression; Chronic Fatigue, CHRONIC O2 3 L - Social History Smoking Status: Never smoked Constitutional: Initial Vital Signs Temperature (C) 37.3 C 07/01/18 16:15 Heart Rate 81 07/01/18 16:15 Respiratory Rate 26 H 07/01/18 16:15 Blood Pressure 152/80 H 07/01/18 16:15 O2 Sat (%) 93 07/01/18 16:15 O2 Delivery Mode Nasal Cannula O2 (L/minute) 4 Allergies/Adverse Reactions: No Known Allergies Allergy (Verified 03/02/18 16:40) Home Medications: Medication Instructions Recorded Hydrochlorothiazide [HCTZ (*)] 08/09/13 Montelukast Sodium [Singulair 10 08/09/13 mg (*)] Sertraline HCl [Zoloft 100mg (*)] 08/09/13 Aspirin [Aspirin 81mg (*)] 08/22/15 Lisinopril [Zestril 20 mg (*)] 08/22/15 Insulin Detemir [Levemir Flextouch] 22 units SQ HS 07/10/16 Rosuvastatin Calcium [Crestor 20mg 12/02/16 (*)] Atenolol [Tenormin 25 mg (*)] 01/09/18 Insulin Regular, Human [Humulin R 02/18/18 U-500 Kwikpen] Albuterol [Proventil Inhaler HFA Q4H PRN 03/02/18 (*)] Cefdinir [Omnicef (*)] 300 mg PO BID #20 cap 03/28/18 Medical Decision Making - Diagnostics Imaging Results: Imaging Impressions Chest X-Ray 07/01/18 16:19 Impression: 1. Findings suspicious for airways disease with superimposed congestive heart failure or fluid overload. 2. Query pulmonary arterial hypertension. As clinically directed, CT of the chest could be considered for further evaluation. Results called and discussed with Dr. Morris on 07/01/2018 at 17:09. Imaging: I viewed and interpreted images myself ED Course/Re-evaluation: CHIEF COMPLAINT: Cough and shortness of breath HISTORY OF PRESENT ILLNESS: The patient is a 63 y/o female with a history of COPD (on 3L supplemental O2), CHF (on HCTZ), diabetes, and hypertension complaining of shortness of breath and a productive green cough onset 4 days ago. She is also having more swelling in her legs and a subjective fever at night. Her shortness of breath is exacerbated while lying flat. She has been urinating more than normal as well. No headache, body aches, lightheadedness, chest pain, heart palpitations, abdominal pain, bowel complaints, numbness, paresthesias. REVIEW OF SYSTEMS: A comprehensive 10 system review of systems is otherwise negative aside from elements mentioned in the history of present illness and medical decision making. PHYSICAL EXAM: HR, BP, O2 Sat, RR. Temp noted General Appearance: Alert, well hydrated, appropriate, and non-toxic appearing. Head: Atraumatic without scalp tenderness or obvious injury Eyes: Pupils equal, round, reactive to light and accommodation, EOMI, no trauma , no injection. Ears: Clear bilaterally, no perforation, normal landmarks Nose: Atraumatic, no rhinorrhea, clear. Throat: There is no erythema or exudates, no lesions, normal tonsils, mucus membranes moist. Neck: Supple, 2+ carotid upstroke, nontender, no lymphadenopathy. Respiratory: Coarse rhonchi in all cai, paroxysmal nocturnal dyspnea. No retractions, no distress, no wheezes, and no accessory muscle use. Cardiovascular: Regular rate and rhythm, no murmurs, rubs, or gallops. Bilateral carotid, radial, dorsalis pedis, and posterior tibial pulses intact. Good capillary refill all extremities. Gastrointestinal: Abdomen is soft, nontender, non-distended, no masses, no rebound, no guarding, no peritoneal signs. Musculoskeletal: Normal active ROM of all extremities, atraumatic. Neurological: Alert, appropriate, and interactive. The patient has normal DTRs and non-focal cranial nerves, motor, sensory, and cerebellar exam. Skin: No rashes, good turgor, no nodules on palpation. Past medical history: COPD (on 3L supplemental O2), CHF, diabetes, hypertension , depression, kidney stones, chronic fatigue Past surgical history: Appendectomy Family history: Denies Social history: Lives in [place], single, not employed DIAGNOSTICS/PROCEDURES/CRITICAL CARE TIME: Chest x-ray: CHF exacerbation with possible infectious process. EKG: The 12 lead EKG was interpreted by myself as sinus rhythm with a rate of 67. See hard copy and/or "tracemaster" electronic copy for interpretation. DIFFERENTIAL DIAGNOSIS: The differential diagnosis for the patient's shortness of breath and hypoxemia included but was not limited to pneumonia, myocardial infarction, acute mountain sickness, high altitude pulmonary edema, congestive heart failure, and pulmonary embolus. MEDICAL DECISION MAKING: The patient is a 63 y/o female with a history of COPD (on 3L supplemental O2), CHF (on HCTZ), diabetes, and hypertension presenting with shortness of breath and a productive green cough onset 4 days ago. On exam she has coarse rhonchi in all cai, paroxysmal nocturnal dyspnea. She is on 4L supplemental oxygen, which is more than normal. Labs, EKG, and chest x-ray ordered. 1700: Reassessed patient and discussed chest x-ray findings. I have discussed plan for admission which she is comfortable with. I suspect she has a combination of CHF and pneumonia. She is not very febrile. 170: I consulted with the hospitalist service, Dr. Schofield accepts admission of this patient. Additional labs ordered. Dr. Schofield will decide if the patient needs antibiotics. 1704: I spoke with Dr. Persaud, radiologist, regarding patient's chest x-ray. CHF exacerbation with possible infectious process 181: I interpreted patient's EKG as sinus rhythm with a rate of 67. Patient is now safe to be transferred to the floor. - Data Points Laboratory Results: Laboratory Results 07/01/18 17:20 07/01/18 17:20 07/01/18 07/01/18 07/01/18 17:32 17:20 17:20 WBC RBC Hgb Hct MCV MCH MCHC RDW Plt Count MPV Neut % (Auto) Lymph % (Auto) [place] % (Auto) Eos % (Auto) Baso % (Auto) Nucleat RBC Rel Count Absolute Neuts (auto) Absolute Lymphs (auto) Absolute Monos (auto) Absolute Eos (auto) Absolute Basos (auto) Absolute Nucleated RBC Immature Gran % Immature Gran # Sodium 138 mEq/L mEq/L (135-145) Potassium 3.8 mEq/L mEq/L (3.5-5.2) Chloride 94 mEq/L L mEq/L (97-110) Carbon Dioxide 37 mEq/l H mEq/l (22-31) Anion Gap 7 mEq/L mEq/L (6-14) BUN 14 mg/dL mg/dL (7-23) Creatinine 0.6 mg/dL mg/dL (0.6-1.0) Estimated GFR > 60 Glucose 244 mg/dL H mg/dL (70-100) Calcium 9.2 mg/dL mg/dL (8.5-10.4) Total Bilirubin 0.4 mg/dL mg/dL (0.1-1.4) Conjugated Bilirubin 0.2 mg/dL mg/dL (0.0-0.5) Unconjugated Bilirubin 0.2 mg/dL mg/dL (0.0-1.1) AST 83 IU/L H IU/L (14-46) ALT 59 IU/L H IU/L (9-52) Alkaline Phosphatase 147 IU/L H IU/L (38-126) POC Troponin I 0.00 ng/mL ng/mL (0.00-0.08) NT-Pro-B Natriuret Pep 66 pg/mL pg/mL (0-125) Total Protein 8.0 g/dL g/dL (6.3-8.2) Albumin 3.6 g/dL g/dL (3.5-5.0) Lipase 100 IU/L IU/L (23-300) Procalcitonin Pending 07/01/18 17:20 WBC 9.07 10^3/uL 10^3/uL (3.80-9.50) RBC 4.93 10^6/uL 10^6/uL (4.18-5.33) Hgb 13.6 g/dL g/dL (12.6-16.3) Hct 42.9 % % (38.0-47.0) MCV 87.0 fL fL (81.5-99.8) MCH 27.6 pg L pg (27.9-34.1) MCHC 31.7 g/dL L g/dL (32.4-36.7) RDW 14.3 % % (11.5-15.2) Plt Count 186 10^3/uL 10^3/uL (150-400) MPV 9.6 fL fL (8.7-11.7) Neut % (Auto) 68.9 % % (39.3-74.2) Lymph % (Auto) 24.0 % % (15.0-45.0) [place] % (Auto) 6.5 % % (4.5-13.0) Eos % (Auto) 0.1 % L % (0.6-7.6) Baso % (Auto) 0.3 % % (0.3-1.7) Nucleat RBC Rel Count 0.0 % % (0.0-0.2) Absolute Neuts (auto) 6.24 10^3/uL 10^3/uL (1.70-6.50) Absolute Lymphs (auto) 2.18 10^3/uL 10^3/uL (1.00-3.00) Absolute Monos (auto) 0.59 10^3/uL 10^3/uL (0.30-0.80) Absolute Eos (auto) 0.01 10^3/uL L 10^3/uL (0.03-0.40) Absolute Basos (auto) 0.03 10^3/uL 10^3/uL (0.02-0.10) Absolute Nucleated RBC 0.00 10^3/uL 10^3/uL (0-0.01) Immature Gran % 0.2 % % (0.0-1.1) Immature Gran # 0.02 10^3/uL 10^3/uL (0.00-0.10) Sodium Potassium Chloride Carbon Dioxide Anion Gap BUN Creatinine Estimated GFR Glucose Calcium Total Bilirubin Conjugated Bilirubin Unconjugated Bilirubin AST ALT Alkaline Phosphatase POC Troponin I NT-Pro-B Natriuret Pep Total Protein Albumin Lipase Procalcitonin Point of Care Test Results: Chemistry 07/01/18 17:32 POC Troponin I 0.00 ng/mL ng/mL (0.00-0.08) Departure - Departure Disposition: [facility] Inpatient Acute Clinical Impression: COPD exacerbation, Shortness of breath Pneumonia Qualifiers: Pneumonia type: due to unspecified organism Laterality: bilateral Lung location : unspecified part of lung Qualified Code(s): J18.9 - Pneumonia, unspecified organism CHF exacerbation Qualifiers: Heart failure type: unspecified Qualified Code(s): I50.9 - Heart failure, unspecified Condition: Fair Referrals: Tawanna Sullivan MD [Primary Care Provider] - As per Instructions Report Scribed for: Amish Morris Report Scribed by: Kandy Krueger Date of Report: 07/01/18 Time of Report: 16:50
[2018-07-01] MEDS ORDERED: ONDANSETRON DISINTEGRATING 4 MG TAB PO PRN (17:28)
[2018-07-01] MEDS ORDERED: ONDANSETRON 4 MG/2 ML VIAL IVP PRN (17:28)
[2018-07-01] MEDS ORDERED: ACETAMINOPHEN 325 MG TAB PO PRN (17:28)
[2018-07-01] MEDS ORDERED: D50W 25 GM/50 ML SYR IVP PRN (17:29)
[2018-07-01 17:43] LABS: PLATELET COUNT 186 10^3/uL (150-400)
[2018-07-01] MEDS ORDERED: BENZONATATE 100 MG CAP PO PRN (18:01)
[2018-07-01] MEDS ORDERED: IPRATROPIUM/ALBUTEROL 3 ML DEYVIAL IH PRN (18:27)
[2018-07-01] MEDS: INSULIN LISPRO 100 UNIT/ML SC SCH (18:45)
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
[2018-07-01] MEDS: guaiFENesin 600 MG TAB.ER PO SCH (20:25)
[2018-07-01] MEDS ORDERED: AZITHROMYCIN 250 MG TAB PO ONE (21:09)
[2018-07-01] MEDS ORDERED: D50W 25 GM/50 ML VIAL IVP PRN (21:30)
[2018-07-01] MEDS: INSULIN DETEMIR 100 UNIT/ML SQ SCH (23:58)
[2018-07-02] MEDS ORDERED: AZITHROMYCIN 250 MG TAB PO ONE (00:15)
[2018-07-02] MEDS ORDERED: INSULIN LISPRO 100 UNIT/ML SC ONE (06:19)
[2018-07-02] MEDS: INSULIN LISPRO 100 UNIT/ML SC SCH ×3 (07:44→17:26)
[2018-07-02] MEDS: ENOXAPARIN 40 MG/0.4 ML SYR SC SCH (08:33)
[2018-07-02] MEDS: AZITHROMYCIN 250 MG TAB PO SCH (08:33)
[2018-07-02] MEDS: ASPIRIN 81 MG CHEWABLE TAB PO SCH (08:33)
[2018-07-02] MEDS: guaiFENesin 600 MG TAB.ER PO SCH ×2 (08:33→20:16)
[2018-07-02] MEDS: INSULIN DETEMIR 100 UNIT/ML SQ SCH ×2 (08:34→20:17)
[2018-07-02] MEDS: SERTRALINE HCL 100 MG TAB PO SCH (08:34)
[2018-07-02] MEDS: ROSUVASTATIN CALCIUM 10 MG TAB PO SCH (08:34)
[2018-07-02] MEDS: LISINOPRIL 20 MG TAB PO SCH (08:34)
[2018-07-02] MEDS: ATENOLOL 25 MG TAB PO SCH (08:34)
[2018-07-02] MEDS ORDERED: HYDROCHLOROTHIAZIDE 25 MG TAB PO SCH (09:00)
[2018-07-02] MEDS ORDERED: INSULIN REGULAR HUMAN 130 UNIT SQ SCH ×2 (09:00→18:00)
[2018-07-02] MEDS: INSULIN REGULAR HUMAN 80 UNIT SQ SCH (09:40)
--- NOTE | 2018-07-02 12:04 | ECHO ---
[email or web address] [address] Main: [phone] Echocardiography Examination Transthoracic Name: CLIF HORTA MR#: [id number] Study Date: 07/02/2018 Study Time: 10:25 AM Date of : 1955 Age: 63 year(s) Height: 162.6 cm (64 in.) Weight: 90.27 kg (199 lb.) BSA: 1.95 m2 Gender: Female Examination: Echo Contrast: Image Quality: Adequate Rhythm: Heart Rate: BP: 137 mmHg/84 mmHg Indication: eval for VHD, pulm HTN Procedure Staff Referring Physician: Senior Nurse Manager: Kenyatta Merritt RDCS Reading Physician: Mykel Calero MD Requesting Provider: Ordering Physician: Kenyatta Schofield Indication: eval for VHD, pulm HTN Measurements Chambers AV/MV Label Value Normal Value Label Value Normal Value LVOTd 1.8 cm (1.8cm - 2cm) AV PGmax 8 mmHg LVOT VTI 19.4 cm (18cm - 22cm) AV PGmean 4 mmHg LVDd, 2D 4.6 cm (3.9cm - 5.3cm) AV Vmax 1.39 m/s LVDs, 2D 3 cm (2.1cm - 4cm) CHANCE (VTI) 1.5 cm2 IVSd, 2D 1 cm (0.6cm - 1.1cm) MV E Vmax 0.93 m/s LVPWd, 2D 0.9 cm MV A Vmax 0.99 m/s LVEF, BP 56 % (55% - 70%) MV E/A 0.94 LVEF, 2D 63 % (54% - 74%) MV E/E' lateral 10.1 LVOT PGmean 2 mmHg MV E/E' septal 13.9 (0.45 - 1.25) LVOT Vmean 0.66 m/s MV DT 254 ms LA Volume, BP 60 ml (22ml - 52ml) MV E' septal 0.07 m/s LADs, 2D 4 cm (2.7cm - 3.8cm) MV PHT 0.08 s LAESV index, BP 30.8 ml/m2 MVA PHT 2.9 cm2 RA Area 21.5 cm2 MV E' lateral 0.09 m/s Additional Vessels MV E/E' mean 11.62 Label Value Normal Value MV PHT 77 ms AoAsc 3.1 cm MV E' mean 0.08 m/s AoRoot, 2D 2.9 cm (1.4cm - 2.6cm) TV/PV IVC 2.3 cm (1.2cm - 2.3cm) Label Value Normal Value Patient: CLIF HORTA Study Date: 07/02/2018 Page 1 of 3 10:25 AM RA Pressure 10 mmHg RVSP 73 mmHg TR Pmax 63 mmHg TR Vmax 3.96 m/s PV PGmax 5 mmHg PV Vmax, Caliper 1.11 m/s (0.6m/s - 0.9m/s) Conclusions Left Ventricle: The ejection fraction, measured by Simpsons method, is 56 %. There are no regional wall motion abnormalities. Tricuspid Valve: Right Ventricular systolic pressure is measured at 73 mmHg. Pulmonary artery pressure severely increased. Findings Left Ventricle: Left ventricle is normal in size. Normal global systolic left ventricular function. The ejection fraction, measured by Simpsons method, is 56 %. EF range is estimated at 55 % - 60 %. Left ventricle wall thickness is normal. There are no regional wall motion abnormalities. Diastolic Dysfunction is indeterminate. No LV hypertrophy. Right Ventricle: Mildly dilated right ventricle. Right ventricular systolic function is normal. Left Atrium: The left atrium is normal in size. Right Atrium: The right atrium is mildly dilated. Mitral Valve: Mitral valve appears structurally normal. Trivial mitral regurgitation. No mitral valve stenosis. Aortic Valve: Aortic leaflets are structurally normal. No significant aortic valve regurgitation. There is no aortic stenosis. Tricuspid Valve: Tricuspid valve leaflets are structurally normal. Moderate tricuspid regurgitation. No tricuspid valve stenosis. Right Ventricular systolic pressure is measured at 73 mmHg. Pulmonary artery pressure severely increased. Pulmonic Valve: Pulmonic leaflets are structurally normal. Mild pulmonic valve regurgitation is present. Aorta: The aortic root size in 2D measures 2.9 cm. The ascending aorta measures 3.1 cm. Aorta Measurements AoRoot, 2D is 2.9 cm. IVC: The inferior vena cava is mildly dilated. Pericardium: No pericardial effusion. Exam Details Procedure Ordered: Echo Procedure Status: Routine study Image Quality: Adequate Facility Location: Bedside Patient: CLIF HORTA Study Date: 07/02/2018 Page 2 of 3 10:25 AM (No Signature Object) Patient: CLIF HORTA Study Date: 07/02/2018 Page 3 of 3 10:25 AM [id number]
[2018-07-02] MEDS ORDERED: FUROSEMIDE 20 MG/2 ML VIAL IVP ONE (13:51)
--- NOTE | 2018-07-02 14:06 | HOSPPROG ---
Hospitalist Progress Note Assessment/Plan: # SOB - unclear if worsening of COPD or other etiology; workup as below # fatigue - also unclear if this is new or longstanding - will check lexiscan (can't exercise) since she is very high risk - consider uncontrolled DM, thyroid also # COPD, possible viral bronchitis - cont azith, duonebs - bicarb slightly more elevated than prior # possible CHF on CXR - BNP ok, echo ok - will give lasix 20mg iv x 1 to see if this helps # chronic resp failure on 3L O2 chronically # severe pulm htn - d/t COPD, GIAN likely - needs CPAP # htn - cont lisino, atenolol, hold hctz given lasix # DM2 with hyperglycemia - very high dose insulin, odd regimen overall - check A1c - will not change doses here as home compliance is questioned - would like a better baseline prior to adjustments # HLD - statin # obesity, BMI 34 # depr - zoloft - overall seems depressed Subjective: still very fatigued; SOB slightly better today Objective: Vital Signs Temp Pulse Resp BP Pulse Ox 36.5 C 71 18 137/94 H 99 07/02/18 06:57 07/02/18 06:57 07/02/18 06:57 07/02/18 06:57 07/02/18 06:57 Microbiology 07/01/18 18:50 Respiratory Panel (PCR) - Final Nasal, Sinus - Swab No Organism Detected By Pcr Laboratory Results 07/01/18 17:20 07/02/18 03:50 07/01/18 07/02/18 07/03/18 05:59 05:59 05:59 Intake Total 650 Balance 650 chart reviewed CXR personally reviewed - Physical Exam Constitutional: chronically ill appearing Cardiovascular: regular rate and rhythym, no murmur, rub, or gallop Respiratory: respiratory distress (mild), No reduced air movement, No expiratory wheeze, No inspiratory crackles Gastrointestinal: soft, non-tender abdomen, no palpable masses, No guarding, No rebound, No distension ICD10 Worksheet Patient Problems: Problems Problem Status Onset Appendicitis, acute Acute Chronic obstructive pulmonary disease with acute exacerbation Acute Pulmonary hypertension Acute Hyperglycemia due to type 2 diabetes mellitus Acute COPD exacerbation Acute Pneumonia Acute Acute pancreatitis Acute Abdominal pain Acute Guaiac positive stools Acute Influenza A Acute CHF exacerbation Acute Shortness of breath Acute
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
[2018-07-03 04:34] LABS: PLATELET COUNT 186 10^3/uL (150-400)
[2018-07-03] MEDS: INSULIN LISPRO 100 UNIT/ML SC SCH ×3 (07:55→18:42)
[2018-07-03] MEDS: AZITHROMYCIN 250 MG TAB PO SCH (08:19)
[2018-07-03] MEDS: SERTRALINE HCL 100 MG TAB PO SCH (08:22)
[2018-07-03] MEDS: ASPIRIN 81 MG CHEWABLE TAB PO SCH (08:24)
[2018-07-03] MEDS: ROSUVASTATIN CALCIUM 10 MG TAB PO SCH (08:25)
[2018-07-03] MEDS: guaiFENesin 600 MG TAB.ER PO SCH ×2 (08:26→21:25)
[2018-07-03] MEDS: INSULIN REGULAR HUMAN 80 UNIT SQ SCH (08:28)
[2018-07-03] MEDS: INSULIN DETEMIR 100 UNIT/ML SQ SCH ×2 (08:30→21:26)
[2018-07-03] MEDS: ENOXAPARIN 40 MG/0.4 ML SYR SC SCH (08:32)
[2018-07-03] MEDS ORDERED: REGADENOSON 0.4 MG/5 ML SYR IVP ONE (09:16)
[2018-07-03] MEDS: ATENOLOL 25 MG TAB PO SCH (11:12)
[2018-07-03] MEDS: LISINOPRIL 20 MG TAB PO SCH (11:13)
[2018-07-03] MEDS ORDERED: POTASSIUM CL 10 MEQ TAB PO ONE (11:15)
--- NOTE | 2018-07-03 12:40 | CPR ---
[f rep st] NONINVASIVE CARDIAC PROCEDURE REPORT REPORT TITLE: Lexiscan injection of Lexiscan MPI study. SUPERVISING CARDIOLOGY TECHNOLOGIST: Dr. Hemphill. INDICATION FOR PROCEDURE: Chest pain. Unable to run on treadmill. PRE: The patient is Cambodian-speaking only and is seen with a atlassian administrator. After obtaining i nformed consent, patient was placed on electrocardiogram. Initial EKG showing sinus rhythm, normal a xis, nonspecific T-wave abnormalities in inferior leads. The patient denies chest pain, pressure or symptoms suggesting of ischemia. Initial blood pressure 132/75 saturation 95%. INJECTION: Patient was given Lexiscan slow IV push, followed by nuclear isotope. Within a minute of injection, patient reporting some nausea and flushing sensation, but denies of chest pain or pressur e. No significant EKG changes, except increase heart rate up to 93 BPM, the blood pressure did initi ally dropped to 122/60, saturation remained stable at 96%. Within 3 minutes, patient reporting flush ing sensation gone, but continue with nausea, she was given caffeinated beverage, which helped with s ymptoms, again no significant EKG changes, but blood pressure remained stable. Within 5 minutes, pat ient reporting symptoms subsided. EKG remained unchanged. Final blood pressure of 134/64, saturatio n 97%. IMPRESSION: 63-year-old female being evaluated for cardiac ischemia by undergoing Lexiscan MPI study . No significant EKG changes with injection. Patient reporting mild nausea and flushing sensation p ost-injection, which was resolved with caffeinated beverage. Currently vital signs are stable. She is asymptomatic. Her EKG is stable. She will finish post-stress imaging in Nuclear Medicine at this time. /[id number]/MODL
--- NOTE | 2018-07-03 15:52 | HOSPPROG ---
Hospitalist Progress Note Assessment/Plan: # acute encephalopathy - neuro intact otherwise - likely attributed to hypercarbia # COPD, with acute on chronic hypercarbic and hypoxic resp failure - start prednisone, cont azith and nebs - on 3L O2 at baseline - bipap overnight, recheck ABG in am # SOB - better today after receiving lasix yesterday - likely at baseline # fatigue - also unclear if this is new or longstanding - Lexiscan negative, TSH ok # severe pulm htn - d/t COPD, GIAN likely # htn - cont lisino, atenolol, hold hctz given lasix # DM2 (A1c 10) with hyperglycemia - on an odd regimen of U500 and levemir - will slightly decrease HS U500 - 80/120 - increase mealtime lispro - cont levemir 20 bid # HLD - statin # obesity, BMI 34 # depr - zoloft - overall seems depressed Subjective: called emergently to bedside after patient had an episode of decreased alertness and confusion this afternon; she had been complaining of nausea after her Lexiscan previously; this episode resolved after about 15 min Objective: Vital Signs Temp Pulse Resp BP Pulse Ox 36.6 C 63 18 118/72 97 07/03/18 15:13 07/03/18 15:13 07/03/18 15:13 07/03/18 15:13 07/03/18 15:13 Laboratory Results 07/03/18 03:31 07/03/18 03:31 07/02/18 07/03/18 07/04/18 05:59 05:59 05:59 Intake Total 1040 Output Total 200 Balance 840 45 mins floor and bedside cc time - Physical Exam Constitutional: uncomfortable Eyes: anicteric sclera Ears, Nose, Mouth, Throat: hearing normal Cardiovascular: regular rate and rhythym, no murmur, rub, or gallop Respiratory: no respiratory distress, no rales or rhonchi Neurologic: AAOx3, weakness, CN II-XII Intact, other (motor intact in UE and LE) , No numbness, No facial droop ICD10 Worksheet Patient Problems: Problems Problem Status Onset Appendicitis, acute Acute Chronic obstructive pulmonary disease with acute exacerbation Acute Pulmonary hypertension Acute Hyperglycemia due to type 2 diabetes mellitus Acute COPD exacerbation Acute Pneumonia Acute Acute pancreatitis Acute Abdominal pain Acute Guaiac positive stools Acute Influenza A Acute CHF exacerbation Acute Shortness of breath Acute
[2018-07-03] MEDS ORDERED: D50W 25 GM/50 ML SYR IVP PRN (15:59)
[2018-07-03] MEDS ORDERED: INSULIN REGULAR HUMAN SQ SCH (15:59)
[2018-07-03] MEDS: predniSONE 20 MG TAB PO SCH (16:58)
[2018-07-04 04:09] LABS: PLATELET COUNT 184 10^3/uL (150-400)
[2018-07-04] MEDS: ENOXAPARIN 40 MG/0.4 ML SYR SC SCH (09:00)
[2018-07-04] MEDS: LISINOPRIL 20 MG TAB PO SCH (09:01)
[2018-07-04] MEDS: predniSONE 20 MG TAB PO SCH (09:01)
[2018-07-04] MEDS: SERTRALINE HCL 100 MG TAB PO SCH (09:01)
[2018-07-04] MEDS: guaiFENesin 600 MG TAB.ER PO SCH ×2 (09:01→21:30)
[2018-07-04] MEDS: AZITHROMYCIN 250 MG TAB PO SCH (09:02)
[2018-07-04] MEDS: ATENOLOL 25 MG TAB PO SCH (09:02)
[2018-07-04] MEDS: ASPIRIN 81 MG CHEWABLE TAB PO SCH (09:02)
[2018-07-04] MEDS: ROSUVASTATIN CALCIUM 10 MG TAB PO SCH (09:02)
[2018-07-04] MEDS: INSULIN DETEMIR 100 UNIT/ML SQ SCH ×2 (09:03→21:31)
[2018-07-04] MEDS: INSULIN REGULAR HUMAN 80 UNIT SQ SCH (09:04)
--- NOTE | 2018-07-04 09:13 | HOSPPROG ---
Hospitalist Progress Note Assessment/Plan: # acute encephalopathy - neuro intact otherwise - likely attributed to hypercarbia # COPD, with acute on chronic hypercarbic and hypoxic resp failure - start prednisone, cont azith and nebs - did not bipap overnight - ABG unchanged - Dr Carmnoa will consult # SOB/fatigue - cardiac w/u negative - likely attributed to pulm status # severe pulm htn - d/t COPD, GIAN likely, ?OHS # htn - cont lisino, atenolol, hold hctz given lasix # DM2 (A1c 10) with hyperglycemia - on an odd regimen of U500 and levemir - glucs worse this am - likely steroids - home U500: 80/130 - will change to 100/100 today - mealtime lispro increased yesterday - cont levemir 20 bid # HLD - statin # obesity, BMI 34 # depr - zoloft Subjective: did not wear bipap overnight; still feels very fatigued Objective: Vital Signs Temp Pulse Resp BP Pulse Ox 36.6 C 66 20 108/64 90 L 07/04/18 07:00 07/04/18 07:00 07/04/18 07:00 07/04/18 07:00 07/04/18 07:00 Laboratory Results 07/04/18 03:48 07/04/18 03:48 07/03/18 07/04/18 07/05/18 05:59 05:59 05:59 Intake Total 1040 475 Output Total 200 500 Balance 840 -[address] Carmona high risk on bipap - Physical Exam Constitutional: no apparent distress, appears nourished Cardiovascular: regular rate and rhythym, no murmur, rub, or gallop Respiratory: reduced air movement (bilat and diffuse), expiratory wheeze (mild) , respiratory distress (mild), No inspiratory crackles Gastrointestinal: normoactive bowel sounds, soft, non-tender abdomen, no palpable masses ICD10 Worksheet Patient Problems: Problems Problem Status Onset Appendicitis, acute Acute Chronic obstructive pulmonary disease with acute exacerbation Acute Pulmonary hypertension Acute Hyperglycemia due to type 2 diabetes mellitus Acute COPD exacerbation Acute Pneumonia Acute Acute pancreatitis Acute Abdominal pain Acute Guaiac positive stools Acute Influenza A Acute CHF exacerbation Acute Shortness of breath Acute
[2018-07-04] MEDS: INSULIN LISPRO 100 UNIT/ML SC SCH ×3 (09:25→18:40)
[2018-07-04] MEDS ORDERED: [UNRECOGNIZED DRUG - OTHER] SC ONE (10:29)
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
--- NOTE | 2018-07-04 14:53 | ASMTCMCOM ---
CM Note CM Note Notes: Pts case discussed in tx rounds. Pulmonology has been consulted. It is uncertain if palliative should be consulted at this time. Therapies have been ordered. PT is pending. OT is recommending home without any needs. CM made a referral to [facility]. Pt will need a [facility] follow up appointment when she gets closer to d/c. CM to follow. Plan: TBD Date Signed: 07/04/2018 02:52 PM Electronically Signed By:RADAMES Bangura
[2018-07-04] MEDS: medroxyPROGESTERone 10 MG TAB PO SCH ×2 (15:11→21:31)
--- NOTE | 2018-07-04 16:29 | ASMTLCPROG ---
Notes Note: Notes: TLC Stat This database report writer met with pt with dental prosthetist. Pt reported that she has been depressed for past 6 months. Pt stated she has been thinking about suicide a lot and went on to say, " I'm always tired, sick. I'm always going to doctors and hospitals. Pt reports she has been "sick for years." Pt reported she was dx with TB as a teenager and has had chronic breathing problems since then. What am I here for?" Pt reports that I feels hopeless about her future and stated, " I don't think it will get better." Pt states her daughter wants to take out to dinner and pt stated, " I don't want to get out. I don't have the strength or the will." Pt reports she has support from her 3 daughters and grandchildren, however one of her daughters was deported to [place]. Pt appeared flat and despondent. This database report writer asked pt if she was able to contract for safety while in her room and pt stated she would not attempt to harm herself. This database report writer consulted with Dr. Campbell regarding pt. Dr. Campbell stated she will call Dr. Govea to discuss case. TLC will evaluate pt when medically cleared. Date Signed: 07/04/2018 04:28 PM Electronically Signed By:Ileana Esteves
[2018-07-04] MEDS: INSULIN REGULAR HUMAN 100 UNIT SQ SCH (18:39)
[2018-07-05 05:44] LABS: PLATELET COUNT 192 10^3/uL (150-400)
[2018-07-05] MEDS: INSULIN LISPRO 100 UNIT/ML SC SCH ×3 (08:42→18:05)
[2018-07-05] MEDS: ENOXAPARIN 40 MG/0.4 ML SYR SC SCH (08:42)
[2018-07-05] MEDS: medroxyPROGESTERone 10 MG TAB PO SCH ×3 (08:42→22:02)
[2018-07-05] MEDS: AZITHROMYCIN 250 MG TAB PO SCH (08:43)
[2018-07-05] MEDS: ATENOLOL 25 MG TAB PO SCH (08:43)
[2018-07-05] MEDS: guaiFENesin 600 MG TAB.ER PO SCH ×2 (08:43→21:10)
[2018-07-05] MEDS: ROSUVASTATIN CALCIUM 10 MG TAB PO SCH (08:43)
[2018-07-05] MEDS: predniSONE 20 MG TAB PO SCH (08:43)
[2018-07-05] MEDS: ASPIRIN 81 MG CHEWABLE TAB PO SCH (08:43)
[2018-07-05] MEDS: LISINOPRIL 20 MG TAB PO SCH (08:44)
[2018-07-05] MEDS: SERTRALINE HCL 100 MG TAB PO SCH (08:44)
[2018-07-05] MEDS: INSULIN DETEMIR 100 UNIT/ML SQ SCH ×2 (08:44→22:02)
[2018-07-05] MEDS: INSULIN REGULAR HUMAN 100 UNIT SQ SCH ×2 (08:48→18:08)
[2018-07-05] MEDS ORDERED: SERTRALINE HCL 100 MG TAB PO SCH (10:52)
[2018-07-05] MEDS: buPROPion XL 150 MG TAB PO SCH (11:39)
--- NOTE | 2018-07-05 15:11 | HOSPPROG ---
Hospitalist Progress Note Assessment/Plan: # acute encephalopathy - appears resolved this AM - likely attributed to hypercarbia # Depression/Suicidal Ideations - M1 hold placed last evening, transferred to ICU - Seen by Psychiatry this AM, discussed with Dr. Campbell who recommends revoking M1 hold - Dr. Campbell also recommends decreasing Zoloft from 100 to 50 mg qd, starting Wellbutrin 150 mg qd # Acute on chronic hypercarbic and hypoxic resp failure - In setting of possible asthma, no hx of COPD, GIAN, OHS - Continue Prednisone for 5 day total course (Day 3) - S/p 3 days of Azith - Continue nebs - Continue BiPAP at night, patient has new machine waiting for her upon d/c - Dr Carmona consulted on 07/04, recommends initiating Provera for OHS # SOB/fatigue - cardiac w/u negative with negative MPS - likely attributed to pulm status # severe pulm htn - d/t GIAN likely, ?OHS # htn - cont lisino, atenolol, hold hctz given lasix # DM2 (A1c 10) with hyperglycemia - on an odd regimen of U500 and levemir - glucs elevated overnight to 350, then 76 this AM, likely steroids contributing - home U500: 80/130 - changed to 100/100 on 07/04 - mealtime lispro increased on 07/03 - cont levemir 20 bid # HLD - statin # obesity, BMI 34 #Vitamin D Deficiency - Level 12.5 yesterday - Will initiate 50,000 units qweekly of Ergocalciferol - F/u with PCP for further evaluation and management FEN: Diabetic diet DVT PPx: Lovenox Code: FULL Dispo: Pending clinical course Subjective: Pt reports feeling improved this AM Objective: Vital Signs Temp Pulse Resp BP Pulse Ox 37.1 C 69 22 H 116/77 97 07/05/18 11:58 07/05/18 11:58 07/05/18 11:58 07/05/18 11:58 07/05/18 11:58 Laboratory Results 07/05/18 05:28 07/05/18 05:28 07/04/18 07/05/18 07/06/18 05:59 05:59 05:59 Intake Total 475 800 Output Total 500 1100 200 Balance -25 -300 -200 - Physical Exam Constitutional: no apparent distress Eyes: PERRL Ears, Nose, Mouth, Throat: moist mucous membranes Cardiovascular: regular rate and rhythym Respiratory: clear to auscultation, reduced air movement Gastrointestinal: soft, non-tender abdomen Skin: warm Musculoskeletal: full muscle strength Neurologic: AAOx3 Psychiatric: interacting appropriately, No suicidal ideation ICD10 Worksheet Patient Problems: Problems Problem Status Onset CHF exacerbation Acute COPD exacerbation Acute Pneumonia Acute Shortness of breath Acute Abdominal pain Acute Acute pancreatitis Acute Appendicitis, acute Acute Chronic obstructive pulmonary disease with acute exacerbation Acute Guaiac positive stools Acute Hyperglycemia due to type 2 diabetes mellitus Acute Influenza A Acute Pulmonary hypertension Acute
--- NOTE | 2018-07-05 15:16 | ASMTCMCOM ---
CM Note CM Note Notes: Dr Campbell saw pt today and lifted M1hold. Pt is chela for safety and feels better. CM made multiple attempts to contact pt's daughter's both Carmen and Halima to verify that pt will have a functioning CPAP machine after discharge and to bring in any old home medications so that Pharmacy can safely dispose of them prior to pt being discharged. RN and MD notified. CM completed [facility] referral. Pt may need assistance making an appt with her PCP. CM to follow. Date Signed: 07/05/2018 03:15 PM Electronically Signed By:RADAMES Sorto
--- NOTE | 2018-07-05 15:26 | PDINTPN ---
[facility] [employer] [employer] Progress Note Assessment/Plan: 63 F with known history of GIAN and inadequate compliance, admitted 07/01 c/o SOB , right sided CP and purulent sputum. A CXR showed PBT and possible CHF. She was treated with prednisone, Zithromax, and nebs despite a normal WBC and no fever. An abg was checked 07/03 showing an incompletely compensated respiratory acidosis which led to bipap briefly, then overnight 07/04 with excellent tolerance. On 07/04 she apparently expressed suicidal ideation so a stat TLC was called and resulted in an M1 hold. A language barrier may have played a role. * Acute on chronic respiratory failure with hypoxia and hypercapnea- she reports a malfunctioning CPAP for only 5 days, but I suspect longer poor compliance. She is normally followed at [facility] (her reoprt) and a new device is apparently ready. * GIAN/OHS- started provera 07/04 and continue with bipap qhs * COPD- she does not have COPD in the absence of a smoking history * asthma- this is possible but less likely to me. Prednisone decreased to 20 mg/ day today. * Possible SI? managed by Dr. Campbell and changing antidepressants. Improved sleep would also help Subjective: reports feeling better and slept with bipap. Objective: Vital Signs Temp Pulse Resp BP Pulse Ox 37.1 C 69 22 H 116/77 97 07/05/18 11:58 07/05/18 11:58 07/05/18 11:58 07/05/18 11:58 07/05/18 11:58 Laboratory Results 07/05/18 05:28 07/05/18 05:28 07/04/18 07/05/18 07/06/18 05:59 05:59 05:59 Intake Total 475 800 Output Total 500 1100 200 Balance -25 -300 -200 Physical Exam - Physical Exam General Appearance: WD/WN, alert, no apparent distress, obese EENT: PERRL/EOMI Neck: supple Respiratory: lungs clear, normal breath sounds, decreased breath sounds, No respiratory distress, No accessory muscle use Cardiac/Chest: regular rate, rhythm, No edema, No JVD Abdomen: non-tender, soft, No distended Skin: normal color, warm/dry, No cyanosis Lymphatic: no adenopathy Extremities: No pedal edema Neuro/Psych: alert, normal mood/affect, oriented x 3 ICD10 Worksheet Patient Problems: Problems Problem Status Onset CHF exacerbation Acute COPD exacerbation Acute Pneumonia Acute Shortness of breath Acute Abdominal pain Acute Acute pancreatitis Acute Appendicitis, acute Acute Chronic obstructive pulmonary disease with acute exacerbation Acute Guaiac positive stools Acute Hyperglycemia due to type 2 diabetes mellitus Acute Influenza A Acute Pulmonary hypertension Acute
--- NOTE | 2018-07-05 21:38 | PDCONSULT ---
Transmission Specialist Note: PSYCHIATRY MD CONSULT Psychiatry consultation requested by hospitalist Dr. Govea for evaluation of depression and safety. Pt is a 63yo SSO patient who expressed SI and feeling depressed related to exacerbation of her chronic medical condition. Per hospitalist evaluation, pt was not able to contract for safety yesterday afternoon, and reported a suicide attempt by OD on old medications 2 weeks ago, and pt reported not wanting to t/ w a counselor. Stat TLC consult requested and evaluation revealed that pt admitted feeling depressed but denied plan or intent to harm self, and endorsed having had SI but denied OD attempt 2 wks ago. I spoke with TLC and Dr. Govea yesterday. Due to concerns about inconsistencies in hx, pt was placed on M-1 yesterday pm and txf to ICU as per hospital protocol. Pt interviewed with medical laboratory technician Karla. Reviewed pertinent history and discussed case and recommendations with mother superior Dr. Carmona and hospitalist . CC: "I'm in the hospital because I was having a lot of shortness of breath". Aware psych consulted "because I told them I didn't want to live anymore...I know I'm never going to get better...I can't do anything" b/c of SOB and physical illness. BRIEF HX: Pt is a 63yo SSO F w/hx COPD on 3L O2 chronically, also with DM, HTN, GIAN and presented with increased SOB, with productive cough and worsening symptoms over past couple of weeks. Also reports BiPAP nonfunctioning for past 5 days but per mother superior eval with her chronic sxs, suspect much longer and concerns about compliance. Pt reports chronic physical illness with SOB and resulting functional limitations, admits feeling increased depressed over past several months related to this, especially more recently having passive SI "because I can't do anything, I can't breathe". However, notes she "already feeling better" since being in the hospital and had good night's sleep last night with BiPAP. Has been on Zoloft for many years, does not feel it has been working and keeps forgetting to tell her PCP this. "I don't have any energy, I'm always tired" and "I feel 'stupid'" indicating feeling forgetful. +depressed mood, +anhedonia. +hopeless, until today with starting to feel better (and after discussing treatment options to help her depression) decreased appetite, poor sleep, tired all the time. no motivation. no energy. +SI passive, but 2 weeks ago admits she had thoughts to overdose on old pills in her cabinet. Looked at them "for a couple of minutes", "thought a lot about it", but ultimately only just took her Rx pills. Consistently reports she did not take any extra medication. But did not tell family of her SI. States she did not and does not want to end her life b/c of her family, especially her 4yo granddaughter who absolutely adores her. "She follows me all the time...loves to come to my house..." PAST PSYCH HX: Denies prior inpt psychiatric hospitalizations, no hx of therapy/counseling. Zoloft (currently on 100mg) for "many many years", Rxd by PCP for feeling "sad and tired" Denies hx of other mental illness dx, denied hx of anxiety/panic d/o, denied hx of eating d/o, denied hx of psychosis. Denied hx of prior harm to self/others and denies having felt suicidal prior to 2 wks ago. Reports no access to weapons. Does have bottles of old medications at home. Denied hx of trauma- However- pt reports locked up in hospital in isolation x 3yrs (early teens) in [place] after dx'd with TB. SUBST USE HX: denies EtOH, THC, tobacco, drug use NKDA PAST MEDICAL HX: PCP is Dr. Tawanna Sulilvan at [facility]. Acute on chronic hypercarbic and hypoxic resp failure, possible asthma, no hx of COPD, GIAN, OHS Currently on Prednisone, ABXs, nebs, BiPAP, and home 3L O2 Per EDM: Hx chronic hypoxia due to granulomatous dz, pulmonary fibrosis, GERD, DM, PHTN, HLD, diverticulosis, cervical disc dz with foraminal narrowing, nonalcoholic hepatic steatosis, hx recurrent UTI, Hx of appendectomy, Denied hx of SZ FAM PSYCH HX: reports mother was depressed, not sure if she took meds, but otherwise denied known fam hx of mental illness or psychiatric hospitalizations Per EDM, mother had cancer, father of ME at age 68. SOCIAL HX: Pt reports only 3rd grade education, "I learned to read and sign my name" but states she was "pulled out of school after diagnosed with tuberculosis "and I was locked in a hospital for 3 years...I had my 14th birthday there...not allowed to see anyone, but my mother would visit anyway." Indicates she may have had learning difficulties in school, may have been held back, referred to herself as having been "dumb" in school. x 40yrs, with 4 grown kids (3 dtr, 1 son). States one daughter was just deported 4 months ago. Now her 2 sons (ages 10 and 20) are living with her (pt). Pt reports she has been handling this overall okay b/c her is sending money and dtr is with extended family and will try to get a good job b/ c she is bilingual. Other 2 dts live nearby and son lives in [place]. Has 3 great grandchildren. Reports relationship with her H of 40yrs is "good", "he works, and buys food for me...and tells me to try and think positive, and if I feel really poorly to go see the doctor." Lives with , and, since dtr deported ~4mo ago, now with 2 grandsons ages 20yo and 10yo. Spends day generally alone. 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 Likes to play [employer] online. States 20yo grandson cooks and does laundry. 10yo grandson in school during day. 4yo granddtr comes over regularly, which makes pt happy. Pt on disability for past several years. 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 Has traveled to [place] MSE: 63yo HF, Cymro-speaking only, in hosp gowns, somewhat overweight, cooperative , well-kempt, good eye contact, nml rate/vol speech, articulate, nml psychomotor activity. occasional productive cough. mood depressed but adds that she is already feeling better today, affect restricted, but smiling often when talking about her granddtr and also with brightened affect when she reported feeling better overall since admission with less SOB, good rest with BiPAP last night, and having more hopeful feelings about medication changes being helpful for her depression/energy level. thought processes linear, goal-directed, reality-based. denied psychotic sxs. may be minimizing emotional impact of her recent stressors (dtr recently deported). +passive SI recentlly, but denied current SI or any thought/plan/intent to harm self. denied thoughts to harm others. States she does not want to feel this way again. insight-limited, jdgmt seems fair, cognition seems conversationally intact. Discussed depression sxs and possible contributing factors, also need for BiPAP compliance. Informed pt of need to check some labs, also recommendation for medication changes. Pt very willing to try medication changes to help her depression. Not interested in therapy at this time, however. IMPRESSION: 63yo HF with hx of depression, increasing over past few months and more acutely with passive SI over past couple of weeks, having thoughts to OD 2 wks ago, she relates to her worsening SOB and fatigue and feeling she can't do anything. Expressed frustration with chronic medical illness, blaze with exacerbations, frequent hospitalizations over past few yrs, and believes she will never get better. Has long hx of depression, which seems multifactorial including childhood trauma, medical contributions (hypoxemia, not using BiPAP, acute on chronic resp illness), genetic (mother w/depression) and psychosocial factors. In addition to medical issues, pt relates that one daughter was recently deported and now 2 grandkids l/w her and pt indicates they are caring for her b/ c she has not been able to function and has been feeling so ill physically. DIAGNOSIS: Major Depressive Disorder, recurrent, severe r/o Depression due to medical illness RECOMMENDATIONS: 0.5. Okay to drop M-1. Patient not felt to be acute risk of harm to self, and does not meet any other criteria for continuation of M-1. Pt reports feeling better and more hopeful at this time. If any return of SI or worsening of depr sxs, would reassess for M-1 and consider inpt geropsych after medically stable. 1. Decrease Zoloft from 100mg to 50mg qd. Monitor for any SSRI w/d symptoms. Pt reports on zoloft for years, and feels it has not been effective for quite some time. Could contact outpt pharmacy ([facility]) or [facility] PCP to determine hx of Zoloft (when started, dosing changes, and whether pt fills medication regularly). 2. Start Wellbutrin XL 150mg qam. Okay to start this AM. Monitor for any s/e. d/ w pharmacist and hospitalist. Evaluate for effect and need for further increase on outpatient basis. 3. Collateral from family, and PCP, regarding medical hx, psychiatric sxs/hx, and recent functioning, would be helpful. Pt states dtr Gloria, who speaks Khmer, could provide additional hx. PCP is Dr. Sullivan at [facility]. 4. Labs- low levels which could also be contributory to fatigue, depr, cognitive complaints- added on yesterday- B12, TSH, vit D, also consider iron. Replete as indicated. 5. Patient, and Family, Education -Note language barriers, possible cultural issues, but pt reports 3rd grade education level. May lack clear understanding of importance of BiPAP compliance (and need to get fixed RODDY if malfunctioning), and appropriate mgmt of her other medical issues. -Involving family in education will likely help with outpatient compliance and early detection of worsening sxs, with encouragement to seek care sooner. -Could likely benefit from Home Health Care support/services. -Consider Dietary or Nutrition Consult for (re-)education about dietary mgmt of her DM and HTN, wt loss. -Consider Speech Therapy consult for Cog eval as indicated. Suspect pt cognitive complaints will improve with improvement of medical condition and resuming BiPAP use, and improved depr. -Pill organizer for medications if any concerns for compliance -Would ask family to bring in ALL OLD medications from around house, for review and to have pharmacy dispose of with pt consent (blaze given her recent SI with thoughts to OD). 6. Establish with outpatient Mental Health f/u, Cymro-speaking, if pt agreeable. Presently, pt declines. TLC may have additional resources. Would at least strongly recommend pt see therapist or SW in PCP office (same day?) for support and f/u of her depression sxs if not wanting to establish MH services on outpatient basis otherwise. 7. Ensure pt able to pay for and fill medications and that there are no financial issues/copays etc which could affect compliance Psychiatry will continue to follow along and make recommendations as indicated during patient's hospital stay. Please do not hesitate to call with any questions. 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 Pending further hx/collateral, will in this case leave Zoloft at 100mg QD, and just add Wellbutrin as noted, and monitor for response/tolerability.
[2018-07-06 05:16] LABS: PLATELET COUNT 189 10^3/uL (150-400)
[2018-07-06] MEDS ORDERED: predniSONE 20 MG TAB PO SCH (09:00)
[2018-07-06] MEDS ORDERED: ERGOCALCIFEROL 50,000 I.UNIT CAP PO ONE (09:00)
[2018-07-06] MEDS: INSULIN DETEMIR 100 UNIT/ML SQ SCH (09:08)
[2018-07-06] MEDS: INSULIN REGULAR HUMAN 100 UNIT SQ SCH (09:09)
[2018-07-06] MEDS: INSULIN LISPRO 100 UNIT/ML SC SCH ×2 (09:09→13:05)
[2018-07-06] MEDS: ENOXAPARIN 40 MG/0.4 ML SYR SC SCH (09:10)
[2018-07-06] MEDS: ATENOLOL 25 MG TAB PO SCH (09:10)
[2018-07-06] MEDS: LISINOPRIL 20 MG TAB PO SCH (09:11)
[2018-07-06] MEDS: ASPIRIN 81 MG CHEWABLE TAB PO SCH (09:11)
[2018-07-06] MEDS: buPROPion XL 150 MG TAB PO SCH (09:11)
[2018-07-06] MEDS: guaiFENesin 600 MG TAB.ER PO SCH (09:11)
[2018-07-06] MEDS: ROSUVASTATIN CALCIUM 10 MG TAB PO SCH (09:11)
--- NOTE | 2018-07-06 10:07 | ASMTDCNOTE ---
Case Management Discharge Discharge Order Complete? Answers: Yes Patient to Obtain Answers: Independently Medications Transportation Arranged Answers: Family/Friends Discharge Comments Notes: Patient discharged home w family support. She has O2 supplies at home. I made her an appt w her PCP at [facility] 07/12/18 @ 1800. I also requested that a BHP see her at this appt to f/u on mental health issues. Date Signed: 07/06/2018 10:06 AM Electronically Signed By:Stacie Seth RN
[2018-07-06] MEDS: medroxyPROGESTERone 10 MG TAB PO SCH (11:09)
[2018-07-06 11:43] VITALS: BP 129/80
--- NOTE | 2018-07-06 14:02 | PDINTPN ---
[facility] Progress Note Assessment/Plan: 63 F with known history of GIAN and inadequate compliance, admitted 07/01 c/o SOB , right sided CP and purulent sputum. A CXR showed PBT and possible CHF. She was treated with prednisone, Zithromax, and nebs despite a normal WBC and no fever. An abg was checked 07/03 showing an incompletely compensated respiratory acidosis which led to bipap briefly, then overnight 07/04 with excellent tolerance. On 07/04 she apparently expressed suicidal ideation so a stat TLC was called and resulted in an M1 hold. A language barrier may have played a role. * Acute on chronic respiratory failure with hypoxia and hypercapnea- she reports a malfunctioning CPAP for only 5 days, but I suspect longer poor compliance. She is normally followed at [facility] (her reoprt) and a new device is apparently ready. * GIAN/OHS- started provera 07/04 and continue with bipap qhs * COPD- she does not have COPD in the absence of a smoking history * asthma- this is possible but less likely to me. Prednisone decreased to 20 mg/ day today. * Possible SI? managed by Dr. Campbell and changing antidepressants. Improved sleep would also help * OK FOR DC FROM PULMONARY PERSPECTIVE 07/06/18 14:01 Subjective: slept well with CPAP Objective: Vital Signs Temp Pulse Resp BP Pulse Ox 36.7 C 72 16 129/80 H 96 07/06/18 07:15 07/06/18 11:38 07/06/18 11:38 07/06/18 11:38 07/06/18 11:38 Laboratory Results 07/06/18 04:10 07/06/18 04:10 07/05/18 07/06/18 07/07/18 05:59 05:59 05:59 Intake Total 800 900 Output Total 1100 200 Balance -300 700 Physical Exam - Physical Exam General Appearance: alert, no apparent distress, obese EENT: PERRL/EOMI Neck: supple Respiratory: lungs clear, normal breath sounds, decreased breath sounds, No respiratory distress, No accessory muscle use Cardiac/Chest: regular rate, rhythm, No edema, No JVD Abdomen: non-tender, soft, No distended Skin: normal color, warm/dry, No cyanosis Lymphatic: no adenopathy Extremities: No pedal edema Neuro/Psych: alert, normal mood/affect, oriented x 3 ICD10 Worksheet Patient Problems: Problems Problem Status Onset CHF exacerbation Acute COPD exacerbation Acute Pneumonia Acute Shortness of breath Acute Abdominal pain Acute Acute pancreatitis Acute Appendicitis, acute Acute Chronic obstructive pulmonary disease with acute exacerbation Acute Guaiac positive stools Acute Hyperglycemia due to type 2 diabetes mellitus Acute Influenza A Acute Pulmonary hypertension Acute
--- NOTE | 2018-07-06 14:40 | PDDCSUM ---
Discharge Summary Discharge Summary: Date of Admission: 07/02/2018 Date of Discharge: 07/06/2018 Consults: Pulmonology, Psychiatry Procedures: MPS, CXR, TTE Followup: Sleep Medicine, PCP, Psychology Hospital Course Problem List: # acute encephalopathy - Resolved - likely attributed to hypercarbia # Depression/Suicidal Ideations - M1 hold placed on 07/04, transferred to ICU - Seen by Psychiatry on 07/05, discussed with Dr. Campbell who recommended revoking M1 hold - Dr. Campbell also recommend starting Wellbutrin 150 mg qd, continuing Zoloft 100 mg - Plan to followup with Psychology at [facility] on . 07/12/2018 # Acute on chronic hypercarbic and hypoxic resp failure - In setting of possible asthma, GIAN, OHS, no hx of COPD - Continue Prednisone for 5 day total course (Day 4) - S/p 3 days of Azith - Continue nebs - Continue BiPAP at night, patient has new machine pending from [facility] - Pulmonology following as IP, recommended f/u with Orthopedic Technician at [facility] in [place] after d/c # SOB/fatigue - cardiac w/u negative with negative MPS - likely attributed to pulm status # severe pulm htn - d/t GIAN likely, ?OHS, f/u with sleep medicine # htn - cont lisino, atenolol, hold hctz given lasix # DM2 (A1c 10) with hyperglycemia - on an odd regimen of U500 and levemir - glucs elevated overnight to 350, then 76, likely steroids contributing - home U500: 80/130 - mealtime lispro increased on 07/03 - cont home levemir 20 bid # HLD - statin # obesity, BMI 34 #Vitamin D Deficiency - Level 12.5 during admission - Will initiate 50,000 units qweekly of Ergocalciferol - F/u with PCP for further evaluation and management Time spent on discharge was >35 minutes with >50% of time spent on patient education and counseling.
--- NOTE | 2018-07-06 14:56 | PDIAF ---
- Diagnosis Code Status: Full Code - Medication Management Discharge Medications: electronically signed and located in the Home Medication List. - Orders Services needed: Home Care, Registered Nurse Home Care Face to Face: I certify that this patient was under my care and that I had the required [id number] encounter meeting the encounter requirements on the discharge day. My findings support the fact that the patient is homebound as defined in Home Care Face to Face Continued: CMS Chapter 7 Medicare Benefits Manual 30.1.1 , The condition of the patient is such that there exists a normal inability to leave home and consequently, leaving home would require a considerable and taxing effort. Isolation Type: None Additional Instructions: Queenie de seguimiento con la Dr. Tawanna Sullivan el lunes o chris de la semana que viene. Tiene queenie con Dr Nate mccartney [address] a las seis de la tarde ([id number]). [facility] [address] [place] [address] - Follow Up Care Current Providers and Referrals: Tawanna Sullivan MD [Primary Care Provider] - As per Instructions
--- NOTE | 2018-07-06 16:22 | ASMTCMCOM ---
CM Note CM Note Notes: LATE ENTRY: After patient was discharged, Dr Campbell asked me to do a few things. She, Dr Petty and I spoke with patient to make sure she was ok to discharge home even though there is not a working BiPAP machine there right now. She said she was. In the meantime, I worked on the following: I called both [facility] and [facility] to request avila attention to ordering BiPap. Per [facility], they were lacking an order/prior auth form for the machine. Meredith from [facility] faxed an order to [facility]. I ordered home health nursing from [facility]. I sent the psychiatry consultation note to patient's PCP at [facility]. I called patient's daughter Halima and left a message explaining all of the above. Date Signed: 07/06/2018 04:22 PM Electronically Signed By:Stacie Seth RN
--- NOTE | 2018-07-08 08:55 | CPEKG ---
Test Reason : OPEN Blood Pressure : / mmHG Vent. Rate : 067 BPM Atrial Rate : 068 BPM P-R Int : 132 ms QRS Dur : 090 ms QT Int : 422 ms P-R-T Axes : 063 057 066 degrees QTc Int : 446 ms Sinus rhythm Borderline abnrm T, anterolateral leads Confirmed by Amish Morris ([id number]) on 07/08/2018 8:55:25 AM Referred By: Amish Morris Confirmed By:Amish Morris
== END 2018-07-06 14:31 | disposition home health service (06) | DRG 133 ==
LOC: F2W 18:32 → OBSVTOIN 07-02 14:20 → F2N 07-04 18:10 → F1N 07-05 17:35
PROVIDERS: ADMIT Internal Medicine; ATTEND Internal Medicine
DX: J96.21 Acute and chronic respiratory failure with hypoxia (principal); J96.22 Acute and chronic respiratory failure with hypercapnia; G93.40 Encephalopathy, unspecified; I27.20 Pulmonary hypertension, unspecified; E66.2 Morbid (severe) obesity with alveolar hypoventilation; E11.65 Type 2 diabetes mellitus with hyperglycemia; E55.9 Vitamin D deficiency, unspecified; J45.909 Unspecified asthma, uncomplicated; F33.2 Major depressive disorder, recurrent severe without psychotic features; R45.851 Suicidal ideations; E78.5 Hyperlipidemia, unspecified; Z68.34 Body mass index [BMI] 34.0-34.9, adult; Z99.81 Dependence on supplemental oxygen; Z86.11 Personal history of tuberculosis; Z79.4 Long term (current) use of insulin
CPT/HCPCS: 82607-90; 84484-ER; 97165-GO; 97530-GO; 97535-GO; A9500; G0378; J1650; J1815; J1940; J2405; J2785; J7512